=== PATIENT | female | born 1945 | race Caucasian/White ===

== ENCOUNTER → 2017-02-15 | Day surgery (SDC) | payer OTHER ==
[2017-02-07 13:59] VITALS: BMI 44.0
[~2017-02-15] VITALS: Ht 160 cm; Wt 112.3 kg
[~2017-02-15] MED LIST: CHOL1000 PO; LIDOCAINE HCL 2% 2 ML VIAL (20MG/ML) ONE; OMEP40CA41 PO; PROPOFOL IV EMULSION 10 MG/ML 20 ML VIAL IV ONE; SIME1CHW3 PO; SODIUM CHLORIDE 0.9% 500ML 500 ML IV ONE
[2017-02-15 09:29] VITALS: Ht 160 cm; Wt 112.3 kg
--- NOTE | 2017-02-15 10:13 | Endo History and Physical ---
History & Physical Date of Service: Feb 15, 2017. Chief Complaint: REFLUX Referring Physician: DR. VILLALPANDO History of Present Illness patient with reflux and regurgitation for upper endoscopy Past Medical History Arthritis Past Surgical History Hx Cardiac Surgery: No Hx Internal Defibrillator: No Hx Pacemaker: No Hx Abdominal Surgery: Yes (TUBAL LIGATION, NETTIE) Hx of Implantable Prosthesis: No Hx Post-Op Nausea and Vomiting: No Hx Cancer Surgery: No Hx Thoracic Surgery: No Hx Orthopedic: Yes (CERVICAL DISCECTOMY) Hx Urinary Tract Surgery: No Family History None Social History Smoking Status: Never Smoker Hx Substance Use: No Hx Alcohol Use: Yes (RARELY) Allergies Uncoded Allergies: ASA (Allergy, Severe, LIPS SWELL, 02/15/17) DECONGESTANTS (Allergy, Severe, LIPS SWELL, 02/15/17) Current Medications Reported Home Medications Medications Dose Route/Sig Max Daily Dose Days Date Category Gas Relief Extra Strength (Simethicone) 125 Mg Chw 1 Tab PO HS 02/07/17 Reported Vitamin D3 (Cholecalciferol) 1,000 Unit Tab 1 Tab PO QAM 90 02/07/17 Reported Prilosec (Omeprazole) 40 Mg Cap 40 Mg PO QAM 02/07/17 Reported Vital Signs Weight (Kilograms): 112.27 Height (Feet): 5 Height (Inches): 3 Date Time Temp Pulse Resp B/P (MAP) Pulse Ox O2 Delivery O2 Flow Rate FiO2 02/15/17 09:43 36.8 85 20 184/79 (114) 95 Room Air Physical Exam General Appearance: no apparent distress Respiratory/Chest: Auscultation: breath sounds normal Cardiovascular: Heart Auscultation: RRR Abdomen: Inspection & Palpation: soft Liver: non-tender Assessment and Plan stable for EGD
--- NOTE | 2017-02-15 10:31 | GI REPORT ---
Procedure Date: 02/15/2017 10:16 AM Procedure: Upper GI endoscopy Indications: Heartburn, Regurgitation Medicines: See the Anesthesia note for documentation of the administered medications Complications: No immediate complications. Estimated Blood Loss: Estimated blood loss was minimal. Procedure: Pre-Anesthesia Assessment: - Prior to the procedure, a History and Physical was performed, and patient medications, allergies and sensitivities were reviewed. The patient's tolerance of previous anesthesia was reviewed. - The risks and benefits of the procedure and the sedation options and risks were discussed with the patient. All questions were answered and informed consent was obtained. - Patient identification and proposed procedure were verified prior to the procedure by the physician and the nurse. The procedure was verified in the pre-procedure area. - Pre-procedure physical examination revealed no contraindications to sedation. - After reviewing the risks and benefits, the patient was deemed in satisfactory condition to undergo the procedure. After obtaining informed consent, the endoscope was passed under direct vision. Throughout the procedure, the patient's blood pressure, pulse, and oxygen saturations were monitored continuously. The scope was introduced through the mouth, and advanced to the third part of duodenum. The upper GI endoscopy was accomplished without difficulty. The patient tolerated the procedure well. Findings: The esophagus was normal. The entire examined stomach was normal. Biopsies were taken with a cold forceps for Helicobacter pylori nad pathology testing. Verification of patient identification for the specimen was done by the physician and nurse using the patient's name and medical record number. Estimated blood loss was minimal. The examined duodenum was normal. The cardia and gastric fundus were normal on retroflexion. Impression: - Normal esophagus. - No esophagitis. - Normal stomach. Biopsied. - Normal examined duodenum. Recommendation: - Await pathology results. - Discharge patient to home. Jose Cuenca M.D. Jose Cuenca MD 02/15/2017 10:30:49 AM This report has been signed electronically. Note Initiated On: 02/15/2017 10:16 AM I attest to the content of the Intraoperative Record and orders documented therein, exceptions below
--- NOTE | 2017-02-15 10:32 | Discharge Instructions ---
Endoscopy Patient Instructions Date / Procedure(s) Performed Feb 15, 2017. EGD Allergy Information Uncoded Allergies: ASA (Allergy, Severe, LIPS SWELL, 02/15/17) DECONGESTANTS (Allergy, Severe, LIPS SWELL, 02/15/17) Discharge Date / Findings Feb 15, 2017. normal EGD... biopsies taken Provider Instructions Activity Restrictions - No exercising or heavy lifting for 24 hours. - Do not drink alcohol the day of the procedure. - Do not drive a car or operate machinery until the day after the procedure. - Do not make any important decisions or sign important papers in 24 hours after the procedure. Following Day: - Return to full activity which may include returning to work/school. Diet Start your diet with liquids and light foods (jello, soup, juice, toast). Then eat your usual diet if not nauseated. Treatment For Common After Affects For mild abdominal pain, bloating, or excessive gas: - Rest - Eat lightly - Lie on right side Follow-Up Information Follow-up with DR. VILLALPANDO as scheduled Anesthesia Information What You Should Know You have had a procedure that required some medicine to reduce anxiety and discomfort. This treatment is called moderate sedation. After receiving the treatment, you may be sleepy, but you will be able to breathe on your own. The effects of the treatment may last for several hours. Follow these instructions along with Activity/Diet recommendations noted above: * Do NOT do anything where dizziness or clumsiness would be dangerous. * Rest quietly at home today, then you can be up and about tomorrow. * Have a responsible person stay with you the rest of today. * You may have had an I.V. today. If so, you may take the dressing off later today. Recommendations Call your doctor if: * Trouble breathing * Continuous vomiting for more than 24 hours * Temperature above 101 degrees * Severe abdominal pain or bloating * Pain not relieved by pain medicine ordered * There is increased drainage or redness from any incision * A large amount of rectal bleeding greater than 2-3 tablespoons. (If you had a polyp/s removed or have hemorrhoids, a small amount of blood - from the rectum is to be expected.) * You have any unanswered questions or concerns. IN THE EVENT OF A SERIOUS EMERGENCY, GO TO THE NEAREST EMERGENCY ROOM Your discharge instructions were prepared by provider Jose Cuenca. Patient Instructions Signature Page Cynthia Riverauser Patient (or Guardian) Signature/Date: I have read and understand the instructions given to me by my caregivers. Caregiver/RN/Doctor Signature/Date: The above-named patient and/or guardian has received patient instructions on this date. + Original Patient Signature Page (only) stays with chart. Please make copy for patient.
--- NOTE | 2017-02-15 10:43 | Anesthesiology Progress Note ---
Anesthesia Post Op Note Date & Time Feb 15, 2017 at 10:43 Vital Signs Pain Intensity: 2 Vital Signs Past 12 Hours Date Time Temp Pulse Resp B/P (MAP) Pulse Ox O2 Delivery O2 Flow Rate FiO2 02/15/17 10:30 78 20 138/79 (98) 96 Room Air 02/15/17 09:43 36.8 85 20 184/79 (114) 95 Room Air Notes Mental Status: alert / awake / arousable, participated in evaluation Pt Amnestic to Procedure: Yes Nausea / Vomiting: adequately controlled Pain: adequately controlled Airway Patency, RR, SpO2: stable & adequate BP & HR: stable & adequate Hydration State: stable & adequate Anesthetic Complications: no major complications apparent
[2017-02-15 11:00] VITALS: BP 151/99; PULSE 68; O2SAT 95
== END | disposition home or self-care (01) ==
LOC: C.GI 09:13
PROVIDERS: ATTEND Internal Medicine Gastroenterology
DX: K29.50 Unspecified chronic gastritis without bleeding (principal); K21.9 Gastro-esophageal reflux disease without esophagitis; Z79.899 Other long term (current) drug therapy

== ENCOUNTER 2020-01-08 09:09 | Inpatient (IN) ==
[2020-01-08] MEDS ORDERED: OPTIRAY 320 125ml IV PRN (09:18)
--- NOTE | 2020-01-08 09:34 | CT Scan Report ---
CT OF THE HEAD WITHOUT CONTRAST CLINICAL HISTORY: Stroke evaluation COMPARISON STUDY: No previous studies for comparison. CT DOSE: 1166.07 mGy.cm TECHNIQUE: Helical axial images of the head were obtained without IV contrast. Automated exposure con trol was utilized for the study. A dose lowering technique was utilized adhering to the principles o f ALARA. FINDINGS: No acute intracranial hemorrhage, midline shift or mass effect is present. The ventricular system is unremarkable. The basilar cisterns are patent. No extra-axial collections are present. Mild white matter hypodensity suggests small vessel disease. There are no findings to suggest acute dural sinus thrombosis or acute territorial infarct. No significant calvarial abnormalities are present. V isualized portions of the sinuses and mastoid air cells are clear. IMPRESSION: No acute intracranial findings. ACT 112: Negative or not required by law. Electronically signed by: Nash Deleon M.D. 01/08/2020 9:33 AM
--- NOTE | 2020-01-08 09:41 | XRay Report ---
XR chest 1V portable CLINICAL HISTORY: cva COMPARISON STUDY: Chest radiograph December 20, 2019. Chest CT November 09, 2010. FINDINGS: Moderate cardiomegaly is unchanged. Apparent left basilar opacity is probably artifactual. There is no evidence for pulmonary edema. Vasculature is prominent. This is unchanged. The appearance of the chest is unchanged. IMPRESSION: 1. No acute findings. 2. Apparent bibasilar opacities which probably reflect atelectasis or prominent epicardial fat pad. ACT 112: Negative or not required by law. Electronically signed by: Nahs Deleon M.D. 01/08/2020 9:39 AM
[2020-01-08 09:42] LABS: Basophils # (auto) 0.02 K/uL (0-0.2); Basophils % (auto) 0.3 %; Eosinophils # (auto) 0.07 K/uL (0-0.5); Hematocrit (blood only) 40.6 % (37-47); Hemoglobin 13.3 g/dL (12.0-16.0); Immature Granulocytes # (auto) 0.03 K/uL (0.00-0.02); Immature Granulocytes % (auto) 0.4 %; Lymphocytes # (auto) 1.52 K/uL (1.2-3.4); Lymphocytes % (auto) 21.2 %; Mean Corpuscular Hemoglobin 27.9 pg (25-34); Mean Corpuscular Hgb Conc 32.8 g/dL (32-36); Mean Corpuscular Volume 85.3 fL (80-100); Mean Platelet Volume 11.2 fL (7.4-10.4); Monocytes # (auto) 0.48 K/uL (0.11-0.59); Monocytes % (auto) 6.7 %; Neutrophils # (auto) 5.04 K/uL (1.4-6.5); Neutrophils % (auto) 70.4 %; Platelet Count 217 K/uL (130-400); RDW Coefficient of Variation 14.6 % (11.5-14.5); RDW Standard Deviation 45.4 fL (36.4-46.3); Red Blood Count 4.76 M/uL (4.2-5.4); White Blood Count 7.16 K/uL (4.8-10.8)
--- NOTE | 2020-01-08 09:46 | CT Scan Report ---
CT angio neck with con, CT angio head w con CLINICAL HISTORY: 74 years-old Female with Stroke evaluation. Acute strokelike symptoms COMPARISON STUDY: Head CT of same day TECHNIQUE: Following the IV administration of 120 mL of Optiray 320, CT angiogram of the head and nec k was performed from the aortic arch to the skull apex. Images are reviewed in the axial, sagittal, a nd coronal planes. 3-D MIPS images are created and assessed. IV contrast was administered without com plication. All measurements were calculated based on NASCET criteria. A dose lowering technique was utilized adhering to the principles of ALARA. FINDINGS: The opacified pulmonary artery is unremarkable. Mild mixed plaque of the thoracic aortic arch. Patenc y of the innominate artery and imaged subclavian arteries. Study is motion degraded. Medial course of the patent common carotid arteries. Carotid bulbs and internal carotid arteries are patent. Calcifie d plaque of the cavernous and supraclinoid segments without high-grade stenosis. There is multifocal mild and moderate luminal narrowing of the middle cerebral arteries. Mild multifocal luminal narrowin g of the patent anterior cerebral arteries. Dominant left vertebral artery. Diminutive right vertebra l artery, likely developmental. Patent basilar artery. Areas of high-grade stenosis or noted involvin g the bilateral posterior cerebral arteries (for example image 104 series 5 on the right and image 10 5 series 5 on the left) additional moderate areas of luminal narrowing are noted involving the bilate ral P2 segments. Cerebral venous sinuses are patent. No abnormal intracranial enhancement. No pneumothorax. Soft tissues are unremarkable. Multilevel degenerative changes of the cervical spine . IMPRESSION: 1. High-grade narrowing of the posterior cerebral arteries as above with multifocal mild and moderate luminal narrowing of the anterior and middle cerebral arteries. 2. No aneurysm, dissection or arterial occlusion identified. ACT 112: Negative or not required by law. The above report was generated using voice recognition software. It may contain grammatical, syntax o r spelling errors. Electronically signed by: Skip Coronado M.D. 01/08/2020 9:45 AM
[2020-01-08 09:55] LABS: INR 1.2 (0.9-1.1); Partial Thromboplastin Time 26.6 Seconds (21.0-31.0); Prothrombin Time 12.1 Seconds (9.0-12.0)
[2020-01-08 10:02] LABS: BUN Creatinine Ratio 12.3 (10-20); Calcium 8.4 mg/dl (8.5-10.1); Creatinine Clr Calc Pharmacy 64.4 ml/min; Est GFR (African American) 76.6; Est GFR (Non-African American) 66.1; Magnesium 1.8 mg/dl (1.8-2.4); Potassium 2.9 mmol/L (3.5-5.1)
--- NOTE | 2020-01-08 10:08 | Emergency Department Note ---
History of Present Illness General Chief Complaint: Stroke Alert Stated Complaint: Slurred Speech, Facial Droop Right Time Seen by Provider: 01/08/20 09:12 Source: patient Mode of arrival: EMS Limitations: no limitations History of Present Illness Provider Complaint: + facial droop and + slurred speech Last Known Well Time: 21:30 Maximum Pain Intensity: 0 HPI Narrative: The patient is a 74-year-old female who presents to the ED with a chief complaint of difficulty finding her words and slurring her speech this morning. The patient states that she awoke with the symptoms and called her daughter and was brought here by ambulance. The patient states that her symptoms seem much better now. She states that her mouth did not seem to move the way she wanted to. She awoke at 7 AM with the symptoms. She was noted to have a right-sided facial droop by EMS. She was also slurring her speech. 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 The patient has no other complaints. Home Medications Home Medications Medication Instructions Recorded Confirmed Type simethicone [Gas-X Extra Strength] 125 mg PO HS 10/05/18 01/08/20 History psyllium husk [Metamucil] 1 tbsp PO DAILY@1100 01/08/20 01/08/20 History Allergies Allergy/AdvReac Type Severity Reaction Status Date / Time aspirin Allergy Unknown LIPS SWELL Verified 01/08/20 10:03 silver AdvReac Mild Rash Verified 01/08/20 10:03 DECONGESTANTS Allergy Severe LIPS SWELL Uncoded 01/08/20 10:03 Past Med/Surg History Medical History Cardiac murmur MILD GERD (gastroesophageal reflux disease) History of colon polyps Macular degeneration 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 Osteoarthritis Surgical History H/O cervical spine surgery BONE CHIP REMOVAL History of anesthesia reaction SLOW TO WAKE UP History of bilateral tubal ligation History of cholecystectomy History of colonoscopy History of esophagogastroduodenoscopy (EGD) History of tooth extraction Family History Father Family history of diabetes mellitus Social History Preferred Language: Albanian Communication Ability: Effective Clutch Rebuilder Required: No Beliefs That Will Affect Care: None Current Living Situation: Spouse Feels Safe at Home: Yes Smoking Status: Never smoker Second Hand Exposure: No ; Hx Alcohol Use: No Hx Substance Use: No Review of Systems A total of 10 systems reviewed and were otherwise negative Physical Exam Vital Signs: Vital Signs - 24 hr 01/08/20 09:10 01/08/20 09:29 01/08/20 09:53 Temperature 36.4 C L Temperature Source Oral Pulse Rate 87 84 81 Pulse Rate [Apical ] Pulse Rate from Sp O2 Sensor 80 Respiratory Rate 20 24 20 Blood Pressure 170/148 H 170/148 H 215/108 H Blood Pressure [Ri ght Arm] Blood Pressure Daisha n 155 151 126 Blood Pressure Daisha n [Right Arm] Pulse Oximetry 94 97 Oxygen Delivery Me thod Room Air Sepsis Recent Feve r Within 48 Hours No Sepsis New/Unexpla ined Change in Men savanna Status No Sepsis Action Take n by Nursing No Action Required 01/08/20 10:22 Temperature Temperature Source Pulse Rate Pulse Rate [Apical ] 64 Pulse Rate from Sp O2 Sensor Respiratory Rate 20 Blood Pressure Blood Pressure [Ri ght Arm] 227/96 H Blood Pressure Daisha n Blood Pressure Daisha n [Right Arm] 139 Pulse Oximetry 97 Oxygen Delivery Me thod Room Air Sepsis Recent Feve r Within 48 Hours Sepsis New/Unexpla ined Change in Men savanna Status Sepsis Action Take n by Nursing Physical Exam: CONSTITUTIONAL/VITAL SIGNS: Reviewed / noted above. GENERAL: Non-toxic in appearance. INTEGUMENTARY: Warm, dry, and [place]. HEAD: Normocephalic. EYES: without scleral icterus or trauma. ENT/OROPHARYNX: clear and moist. LYMPHADENOPATHY/NECK: Is supple without lymphadenopathy or meningismus. RESPIRATORY: Lungs clear and equal. CARDIOVASCULAR: Regular rate and rhythm. GI/ABDOMEN: Soft and nontender. No organomegaly or pulsatile mass. No rebound or guarding. Normal bowel sounds. EXTREMITIES: Warm and well perfused. BACK: No CVA tenderness. NEUROLOGICAL: Intact without focal deficits. PSYCHIATRIC: normal affect. MUSCULOSKELETAL: Normally developed with good muscle tone. TRIAGE NURSING DOCUMENTATION REVIEWED. Course Administered Medications Ioversol (Optiray 320 125ml) 120 ml IV ONCE PRN PRN Reason: Interaction Checking Stop: 01/12/20 09:17 Last Admin: 01/08/20 09:18 Dose: 120 ml Documented by: [id number] Medical Decision Making Differential Diagnosis Differential includes acute coronary syndrome, myocardial infarction, CVA, TIA, anemia, infection, pneumonia, UTI, pyelonephritis, poor nutrition, dehydration, electrolyte disturbance,hypoglycemia. Medical Records Attestation: I reviewed the patient's medical records. Home Medications Current Medication List: was personally reviewed by me Laboratory Data Attestation: I reviewed the patient's lab results. Result diagrams: 01/08/20 09:31 01/08/20 09:31 Lab Results 01/08/20 01/08/20 01/08/20 Range/Units 09:31 09:31 09:31 WBC 7.16 (4.8-10.8) K/uL RBC 4.76 (4.2-5.4) M/uL Hgb 13.3 (12.0-16.0) g/dL Hct 40.6 (37-47) % MCV 85.3 (80-100) fL MCH 27.9 (25-34) pg MCHC 32.8 (32-36) g/dL RDW Std Deviation 45.4 (36.4-46.3) fL RDW Coeff of Rishabh 14.6 H (11.5-14.5) % Plt Count 217 (130-400) K/uL MPV 11.2 H (7.4-10.4) fL Immature Gran % (Auto) 0.4 % Neut % (Auto) 70.4 % Lymph % (Auto) 21.2 % Mccracken % (Auto) 6.7 % Eos % (Auto) 1.0 % Baso % (Auto) 0.3 % Immature Gran # (Auto) 0.03 H (0.00-0.02) K/uL Neut # (Auto) 5.04 (1.4-6.5) K/uL Lymph # (Auto) 1.52 (1.2-3.4) K/uL Mccracken # (Auto) 0.48 (0.11-0.59) K/uL Eos # (Auto) 0.07 (0-0.5) K/uL Baso # (Auto) 0.02 (0-0.2) K/uL PT 12.1 H (9.0-12.0) Seconds INR 1.2 H (0.9-1.1) APTT 26.6 (21.0-31.0) Seconds PTT Ratio 1.0 Sodium 139 (136-145) mmol/L Potassium 2.9 L (3.5-5.1) mmol/L Chloride 107 (98-107) mmol/L Carbon Dioxide 24 (21-32) mmol/L Anion Gap 8.0 (3-11) BUN 11 (7-18) mg/dl Creatinine 0.87 (0.6-1.2) mg/dl Est Cr Clr Drug Dosing 64.4 ml/min Est GFR ( Amer) 76.6 Est GFR (Non-Af Amer) 66.1 BUN/Creatinine Ratio 12.3 (10-20) Glucose 117 H (70-99) mg/dl Calcium 8.4 L (8.5-10.1) mg/dl Magnesium 1.8 (1.8-2.4) mg/dl Total Bilirubin 0.4 (0.2-1) mg/dl AST 10 L (15-37) U/L ALT 20 (12-78) U/L Alkaline Phosphatase 97 (45-117) U/L Troponin I 0.114 H* (0-0.045) ng/ml Total Protein 6.7 (6.4-8.2) gm/dl Albumin 3.0 L (3.4-5.0) gm/dl Globulin 3.7 (2.5-4.0) gm/dl Albumin/Globulin Ratio 0.8 L (0.9-2) Imaging Data Radiologist's Impression: CT angiogram of the head:IMPRESSION: 1. High-grade narrowing of the posterior cerebral arteries as above with multifocal mild and moderate luminal narrowing of the anterior and middle cerebral arteries. 2. No aneurysm, dissection or arterial occlusion identified. Noncontrast CT of the head:FINDINGS: No acute intracranial hemorrhage, midline shift or mass effect is present. The ventricular system is unremarkable. The basilar cisterns are patent. No extra-axial collections are present. Mild white matter hypodensity suggests small vessel disease. There are no findings to suggest acute dural sinus thrombosis or acute territorial infarct. No significant calvarial abnormalities are present. Visualized portions of the sin uses and mastoid air cells are clear. IMPRESSION: No acute intracranial findings. Chest x-ray:IMPRESSION: 1. No acute findings. 2. Apparent bibasilar opacities which probably reflect atelectasis or prominent epicardial fat pad. ECG Data Attestation: I personally reviewed and interpreted this ECG as follows: Indication: weakness Rate (beats per minute): 85 Rhythm: normal sinus Findings: no PVC, no ST elevation and no prolonged QT MDM Narrative The patient is a 74-year-old female who presents to the ED with a chief complain t of difficulty finding her words and slurring her speech this morning. The patient states that she awoke with the symptoms and called her daughter and was brought here by ambulance. The patient states that her symptoms seem much better now. She states that her mouth did not seem to move the way she wanted to. She awoke at 7 AM with the symptoms. She was noted to have a right-sided facial droop by EMS. She was also slurring her speech. 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 The patient has no other complaints. The patient's physical exam when I saw her was unremarkable. She was speaking clearly and without hesitation. She did not have any focal neurologic deficits on my exam. I did speak with the stroke neurologist with regards to the patient's CT angiogram. She did not feel any intervention was needed and recommended aspirin and Plavix loading. The patient is allergic to aspirin and states that her lips swell. She was loaded with Plavix. She will be seen by the hospitalist for further inpatient evaluation and care. Of note, her blood pressure was quite elevated. She was ordered hydralazine for this. The patient also had a slightly elevated troponin without significant EKG changes. This could be related to her hypertension. Impression & Plan Brain TIA, Elevated troponin, Accelerated hypertension Critical Care Time Critical Care Time: Yes Total Critical Care Time: 35 I have personally spent 35 minutes of critical care time in the direct management of this patient. This includes bedside care, interpretation of diagnostic studies, and testing, discussion with consultants, patient, and family members, and other required patient management activities. This 35 mi nutes is in excess of all separately billable procedures. Discharge Plan Visit Data Chief Complaint: Stroke Alert Stated Complaint: Slurred Speech, Facial Droop Right ED Provider: Kraig Lopez Discharge Problem: Brain TIA, Elevated troponin, Accelerated hypertension Patient Disposition: Being Evaluated by Hospitalist Condition: Good Forms Stand Alone Forms: [facility], Virtual Emergency Department, Important Visit Information Prescriptions Prescriptions: No Action Metamucil 3.4 gram/5.4 gram Powder 1 tbsp PO DAILY@1100 RF: 0 simethicone [Gas-X Extra Strength] 125 mg Capsule 125 mg PO HS RF: 0 Referrals Referrals: Frank Pittman MD [Primary Care Provider] -
[2020-01-08 10:14] LABS: Albumin Globulin Ratio 0.8 (0.9-2); Bilirubin,Total 0.4 mg/dl (0.2-1); Globulin 3.7 gm/dl (2.5-4.0); Total Protein 6.7 gm/dl (6.4-8.2); Troponin I 0.114 ng/ml (0-0.045)
[2020-01-08] MEDS ORDERED: CLOPIDOGREL BISULFATE 300 MG TAB PO STA (10:31)
[2020-01-08] MEDS ORDERED: HydrALAZINE HCL 20 MG/ML VIAL IV STA (10:31)
[2020-01-08] MEDS ORDERED: LABETALOL HCL IV 5 MG/ML 20ML IV STA (10:42)
[2020-01-08] MEDS ORDERED: ACETAMINOPHEN 500 MG TAB PO STA (11:20)
[2020-01-08] MEDS ORDERED: MoRPHine SULFATE 2 MG/ML CARP IV STA (11:20)
--- NOTE | 2020-01-08 11:43 | History & Physical Report ---
Date of Service January 08, 2020 Assessment & Plan (1) Stroke-like symptoms: This is a 74 yo F with a PMH of CKD III, GERD and IBS who presents with stroke like symptoms starting this morning. -Right sided weakness noted last night but resolved. Woke up today with dysarthria, dysphagia and R sided facial droop that improved but then worsened prior to admission -No personal or family CVA history. No known underlying cardiac or vascular disease -Head CT negative for intracranial abnormality and CTA of head/neck with high- grade narrowing of SENIOR FRONT END ENGINEER but no evidence of aneurysm, dissection or occlusion -MRI brain w/wo, echo w/ bubble study ordered -[facility] neurology recommended dual antiplatelet therapy but patient with aspirin allergy. Given plavix through NG tube -Neuro checks, PT, OT, speech therapy evaluations -Discussed plan with neurology, who will evaluate patient. Monitor in ICU for now due to evolving symptoms (2) Hypertensive emergency: (3) Elevated troponin: BP up to 227/96 during arrival with associated troponin elevation of 0.114 -Initially withheld antihypertensives to allow for permissive hypertension for cerebral perfusion but given Labetalol x 1 due to developing chest pain and headache -BP now 178/92. EKG without acute ST changes. Will allow for permissive hypertension up to 220/110 per guidelines -Trend troponin DVT Ppx: SCDs Code status: FULL PCP: [facility] Dispo: Admitted to ICU. Discharge planning ordered. Patient seen in collaboration with Dr. Rose. Please see addendum. History of Present Illness Chief Complaint: stroke like symptoms Primary Care Provider: Frank Pittman MD This is a 74 yo F with a PMH of CKD III, GERD and IBS who presents with stroke like symptoms starting this morning. Patient was watching the news last evening and noticed right-sided weakness when walking back to bedroom, resulting in her falling forward. Denies head trauma or LOC. Was able to get up and ambulate to bed. Woke up at 0700 this morning with slurred speech and right-sided facial droop and came to ED for further evaluation. In the ED, BP is elevated, ranging from 180-220/96-110. Head CT negative for intracranial abnormality and CTA of head/neck with high-grade narrowing of SENIOR FRONT END ENGINEER but no evidence of aneurysm, dissection or occlusion. ED provider spoke with [facility] neurology during stroke alert, but was out of tpa window and no other intervention was possible at this time. Dual antiplatelet therapy was recommended, however patient has allergic reaction of lip swelling to aspirin. Dyarthria and facial droop improved initially on presentation but then worsened again by hospitalist time of evaluation. Also began to experienced R sided chest pain that felt like gas pain as well as frontal headache. Denies fever, chills, lightheadedness, visual changes, cough, chest pain, palpitations, shortness of breath, abdominal pain, nausea, vomiting, dysuria, constipation or diarrhea. Failed dysphagia screen so Plavix was given though NG tube. Brain MRI w/wo and echo with bubble study ordered. Discussed with Dr. Patino of neurology, who will evaluate patient. Will be monitored in ICU Allergies Allergy/AdvReac Type Severity Reaction Status Date / Time aspirin Allergy Unknown LIPS SWELL Verified 01/08/20 10:03 silver AdvReac Mild Rash Verified 01/08/20 10:03 DECONGESTANTS Allergy Severe LIPS SWELL Uncoded 01/08/20 10:03 Home Medications Home Medications Medication Instructions Recorded Confirmed Type simethicone [Gas-X Extra Strength] 125 mg PO HS 10/05/18 01/08/20 History psyllium husk [Metamucil] 1 tbsp PO DAILY@1100 01/08/20 01/08/20 History Past Med/Surg History Medical History Cardiac murmur MILD GERD (gastroesophageal reflux disease) History of colon polyps Macular degeneration 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 Osteoarthritis Surgical History H/O cervical spine surgery BONE CHIP REMOVAL History of anesthesia reaction SLOW TO WAKE UP History of bilateral tubal ligation History of cholecystectomy History of colonoscopy History of esophagogastroduodenoscopy (EGD) History of tooth extraction Family History Father Family history of diabetes mellitus Social History Preferred Language: Northern Irish Communication Ability: Effective Systems Support Specialist Required: No Beliefs That Will Affect Care: None Current Living Situation: Spouse Feels Safe at Home: Yes Smoking Status: Never smoker Second Hand Exposure: No ; Hx Alcohol Use: No Hx Substance Use: No Review of Systems Review of Systems: At least ten systems reviewed and negative except as noted in the HPI. Physical Exam Physical Exam: General Appearance: WD/WN, vitals as above, sitting up in bed, flushed, appears anxious, dysarthric Head: normocephalic, atraumatic Eyes: normal inspection, PERRL, conjunctivae normal, anicteric sclerae ENT: external ear and nose normal, oropharynx normal Neck: trachea midline, no thyromegaly, normal visual inspection Respiratory: normal respiratory effort, lungs clear to auscultation, no wheeze, rales, rhonchi. Normal insp/exp effort, no accessory muscle use Cardiovascular: regular rate, rhythm, no murmur appreciated, normal peripheral pulses Chest: normal inspection of chest Abdomen/GI: normal bowel sounds, soft, nontender, no hepatosplenomegaly Extremities/Musculoskeletal: no cyanosis or clubbing, extremities motor strength 5/5 Neurologic: PERRL, EOMI, accommodation nl,+ R sided facial droop, + dysarthria, difficulty with R sided [id number]. CN's II-XI intact bilaterally , AROM and strength 5/5 in all extremities Psychiatric: A+Ox3, anxious Skin: no rashes, normal color, warm/dry Results & Data Results & Data ([facility]) Vital Signs (Past 12 Hours) Vital Signs Temp Pulse Pulse Resp BP BP Pulse Ox 01/08/20 11:11 69 25 H 182/106 H 95 01/08/20 11:00 65 24 175/96 H 95 01/08/20 10:31 69 17 173/98 H 96 01/08/20 10:22 64 20 227/96 H 97 01/08/20 10:01 75 21 227/96 H 96 01/08/20 09:53 81 20 215/108 H 97 01/08/20 09:29 84 24 170/148 H 01/08/20 09:10 36.4 C L 87 20 170/148 H 94 Laboratory Results Short CBC 01/08/20 Range/Units 09:31 WBC 7.16 (4.8-10.8) K/uL Hgb 13.3 (12.0-16.0) g/dL Hct 40.6 (37-47) % Plt Count 217 (130-400) K/uL [facility] 01/08/20 09:31 Sodium 139 Potassium 2.9 L Chloride 107 Carbon Dioxide 24 BUN 11 Creatinine 0.87 Glucose 117 H Calcium 8.4 L Cardiac Enzymes 01/08/20 Range/Units 09:31 Troponin I 0.114 H* (0-0.045) ng/ml Liver Function 01/08/20 Range/Units 09:31 Total Bilirubin 0.4 (0.2-1) mg/dl AST 10 L (15-37) U/L ALT 20 (12-78) U/L Alkaline Phosphatase 97 (45-117) U/L Albumin 3.0 L (3.4-5.0) gm/dl Diagnostic Findings CT head: IMPRESSION: No acute intracranial findings. CTA head: IMPRESSION: 1. High-grade narrowing of the posterior cerebral arteries as above with multifocal mild and moderate luminal narrowing of the anterior and middle cerebral arteries. 2. No aneurysm, dissection or arterial occlusion identified. CTA neck: IMPRESSION: 1. High-grade narrowing of the posterior cerebral arteries as above with multifocal mild and moderate luminal narrowing of the anterior and middle cerebr al arteries. 2. No aneurysm, dissection or arterial occlusion identified. CXR:IMPRESSION: 1. No acute findings. 2. Apparent bibasilar opacities which probably reflect atelectasis or prominent epicardial fat pad. KUB: IMPRESSION: The nasogastric tube is positioned with its tip in the stomach ECG Rhythm: normal sinus Findings: + nonspecific-ST abn Code Status & VTE Plan VTE Prophylaxis Plan VTE Prophylaxis will be ordered: Yes Supervising Physician Co-Signing Physician Notes Attending Addendum: care coordinated with ANDREW Smith please refer to her notes for full details, I agree with her notes patient seen and examined, records reviewed by myself as well on exam, patient seen sitting up in bed, not in distress Patient reports difficulty with her speech again, but denies any focal weakness or numbness, headache, dizziness, chest pain, shortness of breath, nausea Blood pressure noted to be 202/92 Labetalol 10 mg IV ordered On recheck blood pressure was 163/97, with significant improvement of her speech no other symptoms VS noted and reviewed oriented x 3, not in distress, speaks in sentences with no effort nor accessory muscle use normal rate, regular rhythm, no murmurs clear breath sounds bilaterally non distended, soft, nontender no bipedal edema, erythema, warmth Oriented x3, cranial nerves II through XII grossly intact except for mild right facial droop and dysarthria-significantly improved after evaluation as noted above, Motor strength 5/5 all extremities, sensation present all extremities WBC 7.16 Hg 13.3 Crea 0.87 Troponin 0 0.114 EKG no signs of acute ischemia or infarct CT head: No acute intracranial findings CT angiogram head and neck: 1. High-grade narrowing of the posterior cerebral arteries as above with multifocal mild and moderate luminal narrowing of the anterior and middle cerebral arteries. 2. No aneurysm, dissection or arterial occlusion identified. ASSESSMENT AND PLAN 74-year-old female with history of CKD stage III, GERD, IBS, presenting with strokelike symptoms which started last night. Strokelike symptoms-episode of right sided weakness-resolved, recurrent episodes of dysarthria and right facial droop Likely secondary to acute CVA versus TIA in the setting of high-grade PCP stenosis, mild to moderate anterior and middle cerebral artery stenosis --Tele-stroke conference performed, acute surgical intervention not recommended at this point, recommend loading of aspirin and Plavix However patient is allergic to aspirin-hives Patient also did not pass bedside swallow eval, NG tube placed for administration of Plavix and other medications --Stroke protocol ordered including MRI of the brain, echocardiogram with bubble study --Discussed with Dr. Lyn Patient will be admitted to the ICU for close monitoring Uncontrolled hypertension --In the setting of acute CVA --Patient at one point reached blood pressure of 202/97 Labetalol 10 mg IV given with improvement to 163/97 --We will discuss with neurology service regarding blood pressure goals in the setting of acute CVA other diagnoses and plan of care as per ANDREW Smith's notes Kelechi Rose MD
[2020-01-08] MEDS ORDERED: ACETAMINOPHEN 1000 MG/100 ML IV IV STA (11:44)
[2020-01-08] MEDS ORDERED: CLOPIDOGREL BISULFATE 300 MG TAB PEG STA (12:03)
[2020-01-08] MEDS ORDERED: POTASSIUM CHLORIDE 20 MEQ/15 ML UDC NG STA (12:05)
[2020-01-08] MEDS ORDERED: ICU PROTOCOL FOR HYPERGLYCEMIA PRN (12:19)
--- NOTE | 2020-01-08 13:08 | XRay Report ---
XR KUB/Abdomen 1 view CLINICAL HISTORY: confirm placement of NG tube COMPARISON STUDY: No previous studies for comparison. FINDINGS: A single view centered on hemidiaphragms is provided for interpretation. There is a nasogas tric tube with its tip projected over the stomach. IMPRESSION: The nasogastric tube is positioned with its tip in the stomach ACT 112: Negative or not required by law. Electronically signed by: Jerry Magallon M.D. 01/08/2020 1:07 PM
[2020-01-08] MEDS: POTASSIUM CHLORIDE / WTR 10 MEQ/100 ML PLCT IV SCH ×3 (14:20→22:50)
--- NOTE | 2020-01-08 16:06 | Critical Care Consultation ---
Date of Consultation January 08, 2020 Assessment & Plan (1) Status post admission to intensive care unit: 74-year-old female with past medical history of hypertension, GERD, obesity and IBS presenting with strokelike symptoms and hypertensive emergency. Neurologic: Continue stroke pathway. Loaded with Plavix. Continue daily Plavix. Neurology consult pending. MRI of the brain pending. Echo pending. Will need PT/OT. Will need speech evaluation tomorrow. Pulmonary: No issues currently. Will likely need an evaluation for obstructive sleep apnea as an outpatient. Cardiovascular: Permissive hypertension over the next 24 hours. Intervention with systolic blood pressure greater than 220 or diastolic blood pressure greater than 120. Trend troponins. Likely demand ischemia. Echo pending. Gastrointestinal: N.p.o. for today. Speech evaluation tomorrow. Renal: Hypokalemia. Patient received potassium. We will follow-up with a repeat BMP. Infectious disease: No issues. Hematologic: No issues. Endocrine: ICU hyperglycemic protocol. Glucose within normal limits currently. F/E/N: N.p.o. for now. Lines and tubes: Peripheral IVs in place. VTE prophylaxis: SCDs. CODE STATUS: Full I have personally spent 31 minutes of critical care time in the direct management of this patient. This is a life/limb threatening event. This includes time spent evaluating patient, direct bedside care, chart review, placing orders, interpretation of diagnostic studies, discussion with consultants, patient, and family members, as well as other required patient management activities. This time is exclusive of all separately billable procedures, and teaching time and separate from and in addition to any other critical care service time. Thank you for allowing us to participate in the care of this patient. (2) Hypertensive emergency: (3) Stroke-like symptoms: (4) Elevated troponin: History of Present Illness Reason for Consultation: Hypertensive emergency Requesting Physician: Kelechi Rose MD Attending Physician: Kelechi Rose MD History of Present Illness 74-year-old female with a history of gastroesophageal reflux disease, hypertension, CKD 3 and IBS who presented to the hospital due to strokelike symptoms. She notes that symptoms began at 1130 last night when she had weakness in her right lower extremity and had some trouble walking. This improved somewhat and she went to bed. Around 7 AM this morning she took a shower and then found that her speech was slurred and had some facial droop on the right. She also had some trouble swallowing. She went to the emergency department and was found to have elevated blood pressures with systolics in the 220s. She denies any chest pain, fevers, chills, night sweats, nausea or vomiting. She does have some "gas". A stroke alert was called and the ED spoke with [place] neurology during the stroke alert. She was out of the window for TPA. She underwent a CT of her head which was negative for any acute intracranial pathology. A CTA of her head and neck demonstrated high-grade narrowing in the MEDICAL OFFICE TECHNICIAN but no other significant findings. She was not deemed to be a candidate for thrombectomy or mechanical intervention at this time. She was loaded with Plavix. She was not able to take aspirin due to prior reactions involving lip swelling and tongue swelling. She notes that she was in the hospital 2 weeks ago and indeed she was discharged on 12/20/2019 from the ER and there were concerning findings for glaucoma. She went to see an call center consultant as an outpatient. She apparently failed her dysphagia screen and an NG tube was placed and she was given Plavix. Neurology was consulted. Allergies Allergy/AdvReac Type Severity Reaction Status Date / Time aspirin Allergy Unknown LIPS SWELL Verified 01/08/20 10:03 silver AdvReac Mild Rash Verified 01/08/20 10:03 DECONGESTANTS Allergy Severe LIPS SWELL Uncoded 01/08/20 10:03 Home Medications Home Medications Medication Instructions Recorded Confirmed Type simethicone [Gas-X Extra Strength] 125 mg PO HS 10/05/18 01/08/20 History psyllium husk [Metamucil] 1 tbsp PO DAILY@1100 01/08/20 01/08/20 History Patient History Medical History Cardiac murmur MILD GERD (gastroesophageal reflux disease) History of colon polyps Macular degeneration 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 Osteoarthritis Surgical History H/O cervical spine surgery BONE CHIP REMOVAL History of anesthesia reaction SLOW TO WAKE UP History of bilateral tubal ligation History of cholecystectomy History of colonoscopy History of esophagogastroduodenoscopy (EGD) History of tooth extraction Family History Father Family history of diabetes mellitus Social History Preferred Language: Hebrew Communication Ability: Effective Metals Analyst Required: No Beliefs That Will Affect Care: None Current Living Situation: Spouse Other Information That Helps Us Care for You: No Feels Safe at Home: Yes Safety Concerns: Feels Safe At This Time Smoking Status: Never smoker Second Hand Exposure: No ; Hx Alcohol Use: No Hx Substance Use: No Review of Systems Review of Systems: All systems reviewed & are unremarkable except as noted in HPI & below Physical Exam Constitutional: WD/WN, vitals as above Eyes: PERRL, conjunctivae normal, anicteric sclerae ENMT: external ear and nose normal, oropharynx normal Neck: trachea midline, no thyromegaly Respiratory: normal respiratory effort, lungs clear to auscultation Cardiovascular: RRR, no murmur, no edema Gastrointestinal (Abdomen): normal bowel sounds, soft, nontender, no hepatospl enomegaly Musculoskeletal: no cyanosis or clubbing, extremities motor strength 5/5 Skin: no rashes, warm and dry Neurologic: PERRL, EOMI, accommodation nl, no face palsy, no dysarthria Cranial Nerves: normal facial strength Psychiatric: A+Ox3, euthymic affect Results & Data Results & Data ([facility]) Vital Signs (Past 12 Hours) Vital Signs Temp Pulse Pulse Resp BP BP Pulse Ox 01/08/20 15:01 70 20 160/91 H 01/08/20 14:31 74 21 176/87 H 96 01/08/20 14:01 59 L 19 165/84 H 95 01/08/20 13:31 65 19 186/125 H 95 01/08/20 13:00 62 17 95 01/08/20 12:31 74 24 178/92 H 95 01/08/20 12:01 66 18 163/97 H 94 01/08/20 11:44 75 25 H 201/91 H 97 01/08/20 11:11 69 25 H 182/106 H 95 01/08/20 11:00 65 24 175/96 H 95 01/08/20 10:31 69 17 173/98 H 96 01/08/20 10:22 64 20 227/96 H 97 01/08/20 10:01 75 21 227/96 H 96 01/08/20 09:53 81 20 215/108 H 97 01/08/20 09:29 84 24 170/148 H 01/08/20 09:10 97.5 F L 87 20 170/148 H 94 I personally reviewed her labs, chest imaging and previous notes. Coding Level of Care Code Critical Care 1st 30-74 mins Diagnoses Status post admission to intensive care unit Hypertensive emergency I16.1 Stroke-like symptoms R29.90 Elevated troponin R79.89 Time Spent (min) 31
[2020-01-08] MEDS ORDERED: PHARMACIST DISCHARGE MED REC CONSULT PRN (16:13)
--- NOTE | 2020-01-08 16:59 | Electrocardiogram Report ---
Test Reason : Blood Pressure : / mmHG Vent. Rate : 085 BPM Atrial Rate : 085 BPM P-R Int : 158 ms QRS Dur : 090 ms QT Int : 388 ms P-R-T Axes : 065 053 077 degrees QTc Int : 461 ms Normal sinus rhythm Abnormal ECG When compared with ECG of 20-DEC-2019 09:28, ST now depressed in Anterolateral leads T wave inversion now evident in Anterolateral leads Confirmed by Pancho Braden ([id number]) on 01/08/2020 4:58:56 PM Referred By: REFERRED SELF Confirmed By:Pancho Braden
[2020-01-08 17:19] LABS: BUN Creatinine Ratio 10.6 (10-20); Calcium 8.5 mg/dl (8.5-10.1); Creatinine Clr Calc Pharmacy 65.1 ml/min; Est GFR (African American) 75.5; Est GFR (Non-African American) 65.2; Potassium 3.2 mmol/L (3.5-5.1)
--- NOTE | 2020-01-08 17:19 | Electrocardiogram Report ---
Test Reason : Blood Pressure : / mmHG Vent. Rate : 065 BPM Atrial Rate : 065 BPM P-R Int : 162 ms QRS Dur : 088 ms QT Int : 402 ms P-R-T Axes : 051 035 026 degrees QTc Int : 418 ms Normal sinus rhythm Nonspecific T wave abnormality Abnormal ECG When compared with ECG of 08-JAN-2020 09:32, ST less depressed in Anterolateral leads Confirmed by Pancho Braden ([id number]) on 01/08/2020 5:18:38 PM Referred By: REFERRED SELF Confirmed By:Pancho Braden
[2020-01-08] MEDS: ATORVASTATIN 40 MG TAB PO SCH (17:24)
[2020-01-08 17:26] LABS: Troponin I 0.084 ng/ml (0-0.045)
--- NOTE | 2020-01-08 19:58 | Consultation Report ---
DATE: 01/08/2020 REASON FOR CONSULTATION: Possible stroke. HISTORY OF PRESENT ILLNESS: The patient is a 74-year-old right-handed female with a history of chronic kidney disease, GERD and irritable bowel, presenting with stroke-like symptoms. The evening prior to admission, the patient attempted to stand up and felt numb in the right leg and weak in the left leg. This resulted in a fall. She was able to get up and go to bed. Upon awakening at 4:00 a.m., she still had mild residual weakness. She again woke up at 8:00 a.m. noticed difficulty with slurred speech and word finding. A right-sided facial droop was noted. She did not notice any change in vision, diplopia, numbness other than aforementioned vertigo, nausea, vomiting, other unilateral weakness or numbness. She did not have a headache. She has been well recently, although was seen in the Emergency Room about a month ago for a migrainous headache which she describes as sudden in onset, a pressured pain on the right but with nausea and vomiting. There were no other neurologic symptoms. She has had no recent head or neck trauma, chiropractic manipulation of the neck. She has not had any chest pain, palpitation, shortness of breath, fevers, chills, sweats, anosmia or ageusia. She has not had any recent medical or dental procedures. While at the hospital, she was noted to have chest pain and a frontal headache. On this basis because she was markedly hypertensive, she was given a low dose of labetalol. She failed the dysphagia screen in the Emergency Room so Plavix was given via NG tube. CT of the head, which I reviewed, was unremarkable. CTA of the neck showed mild to moderate luminal narrowing in the middle cerebral arteries. Dominant left vertebral artery, diminutive right, patent basilar, areas of high-grade stenosis noted in the bilateral cerebral, posterior cerebral arteries and the bilateral P2 segment. Her EKG was sinus rhythm. LABORATORY DATA: Notable for white count of 7, H&H 13.3/40, platelet count 217. Potassium initially 2.9, glucose 117, calcium 8.4, AST 10. Troponin positive. Albumin 3. PT 12, INR 1.2, PTT 26.6. PAST MEDICAL HISTORY: As above. Additionally, the patient indicates to me that she soon after having her headache a month ago, she had laser surgery to her eyes. She has a history of a murmur, reflux, polyps, macular degeneration, osteoarthritis. SURGICAL HISTORY: Cervical spine surgery, bilateral tubal ligation, cholecystectomy, colonoscopy, tooth extraction. FAMILY HISTORY: Heart disease. SOCIAL HISTORY: Nonsmoker, nondrinker. She lives with who I see for Parkinson's disease. PHYSICAL EXAMINATION: VITAL SIGNS: BP max was 215/108. At 1800, blood pressure was 182/109, temperature 36.8, pulse 71 and regular. GENERAL: The patient is awake and alert, oriented x3, no right/left confusion. Repetition, naming and 3-step commands are normal. NECK: There are no carotid bruits. HEART: No heart murmurs. Heart is regular rate and rhythm. ABDOMEN: Soft and nontender. EXTREMITIES: There is no calf swelling or tenderness. Feet are warm and dry. NEUROLOGIC: Pupils are postsurgical. Optic nerves are grossly normal, normal vargas, motility without nystagmus. Normal facial sensation. There may be a marginal flattening of the right nasolabial fold. Speech is mildly hesitant and mildly dysarthric. Tongue is midline. Gag may be reduced on the left. Motor 5/5, no drift. Normal rapid alternating movements. There is a little bit of a resting tremor in the left hand, but the tremor is more significant with intention bilaterally. [id number] is normal. Reflexes symmetric. Toes are downgoing. Sensation is intact to light touch and temperature bilaterally. Gait was not tested. IMPRESSION: Stroke, localization unclear based on the reported difficulty with language which suggest anterior circulation and bilateral lower extremity symptoms which suggest posterior circulation. Her symptoms do not appear to be consistent with the noted ENGINEERING CLERK stenosis. PLAN: MRI of the brain. Suspect this a small vessel. Cardiac monitoring, echo with bubble study. Zio patch as an outpatient if the inpatient telemetry as unremarkable, check lipid profile. Goal LDL 70 or less. Permissive hypertension in first 24-48 hours, blood pressure 180/105, if asymptomatic is reasonable, then gradual reduction of blood pressure. PT, OT and speech. We will follow with you.
[2020-01-08] MEDS ORDERED: GADOBUTROL 65ML VIAL IV PRN (21:52)
[2020-01-08 22:42] LABS: Potassium 2.9 mmol/L (3.5-5.1)
[2020-01-08] MEDS ORDERED: POTASSIUM CHLORIDE 20 MEQ TABCR PO STA (22:44)
[2020-01-08 23:14] LABS: Troponin I 0.084 ng/ml (0-0.045)
[2020-01-09 04:20] LABS: Basophils # (auto) 0.02 K/uL (0-0.2); Basophils % (auto) 0.2 %; Eosinophils # (auto) 0.12 K/uL (0-0.5); Eosinophils % (auto) 1.5 %; Hematocrit (blood only) 41.1 % (37-47); Hemoglobin 13.3 g/dL (12.0-16.0); Immature Granulocytes # (auto) 0.01 K/uL (0.00-0.02); Immature Granulocytes % (auto) 0.1 %; Lymphocytes # (auto) 2.24 K/uL (1.2-3.4); Lymphocytes % (auto) 27.2 %; Mean Corpuscular Hemoglobin 27.6 pg (25-34); Mean Corpuscular Hgb Conc 32.4 g/dL (32-36); Mean Corpuscular Volume 85.3 fL (80-100); Mean Platelet Volume 10.8 fL (7.4-10.4); Monocytes # (auto) 0.68 K/uL (0.11-0.59); Monocytes % (auto) 8.2 %; Neutrophils # (auto) 5.18 K/uL (1.4-6.5); Neutrophils % (auto) 62.8 %; Platelet Count 222 K/uL (130-400); RDW Coefficient of Variation 14.8 % (11.5-14.5); RDW Standard Deviation 45.8 fL (36.4-46.3); Red Blood Count 4.82 M/uL (4.2-5.4); White Blood Count 8.25 K/uL (4.8-10.8)
[2020-01-09 04:42] LABS: BUN Creatinine Ratio 10.1 (10-20); Calcium 8.7 mg/dl (8.5-10.1); Est GFR (African American) 82.3; Potassium 3.4 mmol/L (3.5-5.1)
[2020-01-09 04:47] LABS: Phosphorus 3.5 mg/dl (2.5-4.9); Troponin I 0.076 ng/ml (0-0.045)
[2020-01-09] MEDS ORDERED: POTASSIUM CHLORIDE 20 MEQ TABCR PO STA (05:23)
[2020-01-09] MEDS: POTASSIUM CHLORIDE / WTR 10 MEQ/100 ML PLCT IV SCH ×3 (05:33→06:36)
[2020-01-09] MEDS ORDERED: ACETAMINOPHEN 325 MG TAB PO PRN (06:47)
[2020-01-09 06:58] LABS: Estimated Average Glucose 128 mg/dl; Hemoglobin A1C 6.1 % (4.5-5.6)
[2020-01-09] MEDS: CLOPIDOGREL BISULFATE 75 MG TAB PO SCH (07:51)
[2020-01-09] MEDS: ATORVASTATIN 40 MG TAB PO SCH (07:51)
--- NOTE | 2020-01-09 07:59 | Magnetic Resonance Report ---
MR brain wo/w con HISTORY: 74 years-old Female dysphagia, R facial droop acute strokelike symptoms with right-sided fa cial droop COMPARISON: Head CT 01/08/2020 TECHNIQUE: Multiplanar multisequence MRI of the brain was obtained both with and without the use of 1 0.5 mL Gadavist FINDINGS: Shoemaking Cutter localizer images demonstrate no gross extracranial abnormality. There is an ovoid focus of rest ricted diffusion centered within the left posterolateral aspect of the lentiform nucleus within the d istribution of the putamen, 1.5 x 0.8 cm (image 13 series 5). Additional ill-defined areas of restric velvet diffusion are noted within the superior aspect of the left lentiform nucleus as seen on images 14 and 15 series 5. This area demonstrates increased T2/FLAIR signal with normal T1 signal and no abnor mal enhancement. No acute territorial infarct. No pathologic blooming artifact on the T2 star series. Mildly motion de graded exam. Midline structures including the corpus callosum, brainstem, optic chiasm, pituitary and pineal glands are unremarkable as seen on the sagittal T1 series. No cerebellar tonsillar herniation . Degenerative changes are noted involving the imaged cervical spine. Age-related involutional change s. Mild to moderate patchy white matter T2/FLAIR hyperintensities are suggestive of chronic microvasc ular ischemic disease. No acute intracranial hemorrhage, midline shift, abnormal extra-axial collecti on, hydrocephalus or intracranial mass. Major vascular flow voids are patent. Small right mastoid eff usion. Skull, soft tissues and orbits are unremarkable. IMPRESSION: 1. 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 2. No abnormal enhancement. 3. Age-related involutional changes with mild to moderate T2/FLAIR hyperintensities within the white matter suggestive of chronic microvascular ischemic disease. ACT 112: Negative or not required by law. The above report was generated using voice recognition software. It may contain grammatical, syntax o r spelling errors. Electronically signed by: Skip Coronado M.D. 01/09/2020 7:58 AM
--- NOTE | 2020-01-09 09:03 | Critical Care Progress Note ---
Date of Service January 09, 2020 Assessment & Plan (1) Status post admission to intensive care unit: 74-year-old female with past medical history of hypertension, GERD, obesity and IBS presenting with strokelike symptoms and hypertensive emergency. Neurologic: Continue daily Plavix. Appreciate neurology input. MRI of the brain suggestive of acute versus subacute infarct in the left lentiform nucleus. Age-related involutional changes with mild to moderate T2 flair hyperdensities within the white matter suggestive of chronic microvascular ischemic disease. She does have a high-grade narrowing of the posterior cerebral arteries based on the CTA and moderate luminal narrowing of the anterior and middle cerebral arteries. Echo pending. Will need PT/OT. Speech evaluation cleared her for regular diet. Pulmonary: No issues currently. Will likely need an evaluation for obstructive sleep apnea as an outpatient. Cardiovascular: Starting 10 mg of lisinopril daily today. Will likely need additional antihypertensives. Did not want to drop her pressure too much in the first 48- hour period. Troponins peaked. Likely related to demand ischemia. Echo pending. Gastrointestinal: Low-salt diet. Renal: Low potassium being repleted today. Infectious disease: No issues. Hematologic: No issues. Endocrine: ICU hyperglycemic protocol. Glucose within normal limits currently. F/E/N: Peripheral IVs in place. Lines and tubes: Peripheral IVs in place. VTE prophylaxis: SCDs. She is ambulating. CODE STATUS: Full She can be transferred to the floor with telemetry. (2) Hypertensive emergency: (3) Stroke-like symptoms: (4) Elevated troponin: Admission and Anticipated Discharge Date Admission Date: January 08, 2020 Subjective Patient doing well today. Denies any significant weakness numbness, tingling or chest pain. No dysarthria. She had some discomfort with the potassium repletion. Blood pressures improved overnight. Physical Exam Constitutional: WD/WN, vitals as above Eyes: PERRL, conjunctivae normal, anicteric sclerae ENMT: external ear and nose normal, oropharynx normal Neck: trachea midline, no thyromegaly Respiratory: normal respiratory effort, lungs clear to auscultation Cardiovascular: RRR, no murmur, no edema Gastrointestinal (Abdomen): normal bowel sounds, soft, nontender, no hepatosplenomegaly Musculoskeletal: no cyanosis or clubbing, extremities motor strength 5/5 Skin: no rashes, warm and dry Neurologic: PERRL, EOMI, accommodation nl, no face palsy, no dysarthria Cranial Nerves: normal facial strength Psychiatric: A+Ox3, euthymic affect Results & Data Results & Data ([facility]) Vital Signs (Past 12 Hours) Vital Signs Temp Pulse Resp BP Pulse Ox 01/09/20 06:00 71 19 175/78 H 94 01/09/20 05:00 66 23 159/79 H 94 01/09/20 03:59 98.2 F 67 28 H 164/77 H 94 01/09/20 02:59 62 17 150/69 H 91 01/09/20 01:59 56 L 16 145/71 H 93 01/09/20 01:00 62 23 179/78 H 96 01/09/20 00:00 66 01/08/20 23:59 98.2 F 57 L 19 164/74 H 94 01/08/20 22:59 72 26 H 183/83 H 95 01/08/20 22:00 68 24 192/82 H 94 01/08/20 20:59 61 22 163/75 H 96 Coding Level of Care Code 71953 Subseq Hosp Care Lvl 2 Diagnoses Status post admission to intensive care unit Hypertensive emergency I16.1 Stroke-like symptoms R29.90 Elevated troponin R79.89
[2020-01-09] MEDS: lisinopriL 10 MG TAB PO SCH (09:25)
--- NOTE | 2020-01-09 16:42 | Hospitalist Progress Note ---
Date of Service January 09, 2020 Assessment & Plan (1) CVA (cerebral vascular accident): Acute stroke -This is a 74 yo F with a PMH of CKD III, GERD and IBS who presents with stroke like symptoms starting of morning 01/09/2020 as (Right sided weakness on and then with dysarthria, dysphagia and R sided facial droop) -admission Head CT negative for intracranial abnormality and CTA of head/neck with high-grade narrowing of SILVERWARE WASHER but no evidence of aneurysm, dissection or occlusion -[place] neurology recommended dual antiplatelet therapy but patient with aspirin allergy was instead Given loading dose of plavix through NG tube on admission day, then patient admitted from ED to ICU level of care -Brain MRI confirms that patient symptoms were from an acute stroke (Acute versus subacute infarct of the left lentiform nucleus) -01/09/2020: patient transfer out of ICU level of care, echocardiogram complete with results pending, continuing clopidogrel 75 mg daily, patient eating without acute concerns of speech and swallow services, patient was evaluated by PT/OT, patient does not report of acute motor weakness, blood pressure improving, patient to be continued to be monitored on telemetry -HbA1c 6.1, lipid panel reviewed, plans to start atorvastatin 40 mg daily possible Essential Tremors -history of tremors (2) Elevated troponin: -admission troponin of 0.114 -echocardiogram reports pending upload to EMR (3) Hypertensive emergency: -BP up to 227/96 during arrival with associated troponin elevation of 0.114 -blood pressure controlled and to continue lisinopril 10 mg daily for now (4) Hypokalemia: -admission serum potassium 2.9 -serum potassium improving after potassium supplementation on this admission DVT Ppx: SCDs Code status: FULL Admission and Anticipated Discharge Date Admission Date: January 08, 2020 Subjective No acute distress. patient speaking generally well. there is still presence of some facial droop. no gross motor deficits. sometimes patient seem with tremors which she says is chronic and happens intermittently. no vomiting. no problems with the meals. no chest pain. no shortness of breath. no dizziness. no lightheadedness. patient reports she performed well with therapy Review of Systems Review of Systems: All systems reviewed & are unremarkable except as noted in Subjective Physical Exam Constitutional: comfortable Eyes: PERRL, conjunctivae normal, anicteric sclerae EOM intact bilaterally ENMT: external ear and nose normal, oropharynx normal Neck: trachea midline, no thyromegaly normal visual inspection Respiratory: normal respiratory effort, lungs clear to auscultation Cardiovascular: Rate/Rhythm: regular rate Gastrointestinal (Abdomen): normal bowel sounds, soft, nontender, no hepatosplenomegaly Musculoskeletal: Head/Neck/Chest: normocephalic Neurologic: extraoccular movements intact, mild facial droop Psychiatric: A+Ox3, euthymic affect Results & Data Results & Data ([facility]) Vital Signs (Past 12 Hours) Vital Signs Temp Pulse Pulse Resp BP BP Pulse Ox 01/09/20 16:00 67 01/09/20 12:00 67 01/09/20 10:01 67 21 94 01/09/20 09:59 66 22 127/97 94 01/09/20 09:34 93 01/09/20 09:30 68 15 94 01/09/20 09:25 79 25 H 149/66 H 94 01/09/20 09:10 180/76 H 95 01/09/20 09:00 70 17 94 01/09/20 08:30 78 19 94 01/09/20 08:00 37.0 C 68 89 18 167/81 H 92 01/09/20 07:30 76 22 94 01/09/20 07:01 68 23 94 01/09/20 07:00 77 17 167/87 H 95 01/09/20 06:31 67 26 H 95 01/09/20 06:00 71 19 175/78 H 94 01/09/20 05:00 66 23 159/79 H 94
--- NOTE | 2020-01-09 20:15 | Progress Notes ---
DATE: 01/09/2020 SUBJECTIVE: I am seeing the patient in followup of a variety of neurologic symptoms including dysarthria and possible language dysfunction. Her MRI of the brain shows a left lenticular form nucleus infarction. CTA of the head and neck did not show any anterior circulation stenosis, although did show WAITER/WAITRESS BAR stenosis. Echocardiogram has not yet been reported. The patient's LDL cholesterol is 98. Most recent blood pressure 143/76, 64, 18, 36.9, 96% on room air. PHYSICAL EXAMINATION: GENERAL: The patient is awake and alert. Speech and language appear unremarkable. Naming, repetition and 3-step commands are normal. Normal visual vargas, facial symmetry. Motor 5/5, no drift. Normal rapid alternating movements. Modest tremor with intention. IMPRESSION: Left lenticular form infarction. Continue Plavix as the patient is ASPIRIN allergic. Gradual reduction of blood pressure. Begin statin with goal LDL of 70 or less. 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 The patient should see us in followup post discharge.
[2020-01-10 08:23] LABS: Basophils # (auto) 0.03 K/uL (0-0.2); Basophils % (auto) 0.4 %; Eosinophils # (auto) 0.29 K/uL (0-0.5); Eosinophils % (auto) 3.6 %; Hematocrit (blood only) 41.4 % (37-47); Hemoglobin 12.8 g/dL (12.0-16.0); Immature Granulocytes # (auto) 0.02 K/uL (0.00-0.02); Immature Granulocytes % (auto) 0.2 %; Lymphocytes # (auto) 2.11 K/uL (1.2-3.4); Lymphocytes % (auto) 26.3 %; Mean Corpuscular Hemoglobin 27.2 pg (25-34); Mean Corpuscular Hgb Conc 30.9 g/dL (32-36); Mean Corpuscular Volume 88.1 fL (80-100); Mean Platelet Volume 11.5 fL (7.4-10.4); Monocytes # (auto) 0.68 K/uL (0.11-0.59); Monocytes % (auto) 8.5 %; Platelet Count 226 K/uL (130-400); RDW Standard Deviation 48.6 fL (36.4-46.3); White Blood Count 8.03 K/uL (4.8-10.8)
[2020-01-10] MEDS: CLOPIDOGREL BISULFATE 75 MG TAB PO SCH (08:41)
[2020-01-10] MEDS: ATORVASTATIN 40 MG TAB PO SCH (08:41)
[2020-01-10] MEDS: lisinopriL 10 MG TAB PO SCH (08:41)
[2020-01-10 08:47] LABS: BUN Creatinine Ratio 13.6 (10-20); Calcium 8.7 mg/dl (8.5-10.1); Est GFR (African American) 74.5; Est GFR (Non-African American) 64.3; Potassium 3.3 mmol/L (3.5-5.1)
[2020-01-10] MEDS ORDERED: lisinopriL 10 MG TAB PO ONE (13:12)
[2020-01-10] MEDS ORDERED: POTASSIUM CHLORIDE 10 MEQ TABCR PO STA (13:13)
[2020-01-10] MEDS ORDERED: AMLODIPINE BESYLATE 5 MG TAB PO SCH (13:15)
[2020-01-10] MEDS ORDERED: STROKE PATIENT DISCHARGE STA (13:27)
--- NOTE | 2020-01-10 13:40 | Hospitalist Progress Note ---
Date of Service January 10, 2020 Assessment & Plan (1) CVA (cerebral vascular accident): Acute stroke -This is a 74 yo F with a PMH of CKD III, GERD and IBS who presents with stroke like symptoms starting of morning 01/09/2020 as (Right sided weakness on and then with dysarthria, dysphagia and R sided facial droop) -admission Head CT negative for intracranial abnormality and CTA of head/neck with high-grade narrowing of PUTTY AND CAULKING SUPERVISOR but no evidence of aneurysm, dissection or occlusion -[place] neurology recommended dual antiplatelet therapy but patient with aspirin allergy was instead Given loading dose of plavix through NG tube on admission day, then patient admitted from ED to ICU level of care -Brain MRI confirms that patient symptoms were from an acute stroke (Acute versus subacute infarct of the left lentiform nucleus) -01/09/2020: patient transfer out of ICU level of care, echocardiogram complete with results pending, continuing clopidogrel 75 mg daily, patient eating without acute concerns of speech and swallow services, patient was evaluated by PT/OT, patient does not report of acute motor weakness, blood pressure improving, patient to be continued to be monitored on telemetry -HbA1c 6.1, lipid panel reviewed, plans to start atorvastatin 40 mg daily -01/10/202 updates: Patient's overall blood pressures have improved on this admission. no acute headache. no dizziness. speaking clearly with mild facial droop. no focal motor deficits. no chest pain. no shortness of breath. breathing on room air. Patient initially concerned of lip paresthesia as related to clopidogrel because of previous experiences with aspirin. on re-assessment she feels that these sensations resolving. she was offered further hospital monitoring or switch to an alternative blood thinner but she declined and and wishes to go home. -01/11/2020 discharge plans no acute telemetry events noted, patient may benefit from outpatient telemetry monitoring with ZIO patch which can be set up by primary care or neurology clinics, discharge medications sent electronically to [facility] pharmacy [facility] [place] [id number] clopidogrel 75 mg daily blood pressure medications of amlodipine 10 mg daily, lisinopril 20 mg daily atorvastatin 40 mg daily potassium 10 meq daily for 10 days patient should have follow clinic appointments for follow up up of blood pressures with manager long term care goals of maintaining blood pressure for 140/90 or less but above 100/60. Patient should have follow up serum potassium labs and follow the renal function outpatient appointments 01/15/2020 8:40 AM Provider Mandie Escalera PA-C Department Family Practice [facility] 02/11/2020 11:20 AM Provider Dai Hutchison PA-C Department Neurology [facility] 02/18/2020 9:00 AM Provider Laboratory [place] [facility] [place] 03/07/2020 9:20 AM Provider Frank Pittman MD Department [facility] (2) Elevated troponin: -admission troponin of 0.114. no chest pain. echocardiogram with focal basal hypokinesis with otherwise preserved wall motion, ejection fraction is normal between 60 to 65% and no atrial septal defect, patient should have follow up echocardiogram as per primary care doctor (3) Hypertensive emergency: Hypertensive emergency/Hypertension -BP up to 227/96 during arrival with associated troponin elevation of 0.114 -blood pressure controlled and to continue lisinopril 10 mg daily for now (4) Hypokalemia: -admission serum potassium 2.9 -serum potassium improving after potassium supplementation on this admission -continue potassium as 10 meq daily possible Essential Tremors -history of tremors DVT Ppx: SCDs Code status: FULL Admission and Anticipated Discharge Date Admission Date: January 08, 2020 Subjective Patient's overall blood pressures have improved on this admission. no acute headache. no dizziness. speaking clearly with mild facial droop. no focal motor deficits. no chest pain. no shortness of breath. breathing on room air. Patient initially concerned of lip paresthesia as related to clopidogrel because of previous experiences with aspirin. on re-assessment she feels that these sensations resolving. she was offered further hospital monitoring or switch to an alternative blood thinner but she declined and and wishes to go home. Review of Systems Review of Systems: All systems reviewed & are unremarkable except as noted in Subjective Physical Exam Constitutional: comfortable Eyes: PERRL, conjunctivae normal, anicteric sclerae EOM intact bilaterally ENMT: external ear and nose normal, oropharynx normal Neck: trachea midline, no thyromegaly normal visual inspection Respiratory: normal respiratory effort, lungs clear to auscultation Cardiovascular: Rate/Rhythm: regular rate Gastrointestinal (Abdomen): normal bowel sounds, soft, nontender, no hepato splenomegaly Musculoskeletal: Head/Neck/Chest: normocephalic Neurologic: CN's II-XI intact bilaterally (patient's facial droop improved) Psychiatric: A+Ox3, euthymic affect Results & Data Results & Data ([facility]) Vital Signs (Past 12 Hours) Vital Signs Temp Pulse Pulse Resp BP Pulse Ox 01/10/20 11:11 36.5 C 69 18 169/82 H 95 01/10/20 07:29 36.9 C 68 18 158/75 H 95 01/10/20 07:07 62 01/10/20 04:00 36.4 C L 67 18 138/70 94
--- NOTE | 2020-01-10 13:47 | Discharge Summary ---
Date of Service January 10, 2020 Admission HPI Per Admitting Provider This is a 74 yo F with a PMH of CKD III, GERD and IBS who presents with stroke like symptoms starting this morning. Patient was watching the news last evening and noticed right-sided weakness when walking back to bedroom, resulting in her falling forward. Denies head trauma or LOC. Was able to get up and ambulate to bed. Woke up at 0700 this morning with slurred speech and right-sided facial droop and came to ED for further evaluation. In the ED, BP is elevated, ranging from 180-220/96-110. Head CT negative for intracranial abnormality and CTA of head/neck with high-grade narrowing of [employer]ICE but no evidence of aneurysm, dissection or occlusion. ED provider spoke with [employer] neurology during stroke alert, but was out of tpa window and no other intervention was possible at this time. Dual antiplatelet therapy was recommended, however patient has allergic reaction of lip swelling to aspirin. Dyarthria and facial droop improved initially on presentation but then worsened again by hospitalist time of evaluation. Also began to experienced R sided chest pain that felt like gas pain as well as frontal headache. Denies fever, chills, lightheadedness, visual changes, cough, chest pain, palpitations, shortness of breath, abdominal pain, nausea, vomiting, dysuria, constipation or diarrhea. Failed dysphagia screen so Plavix was given though NG tube. Brain MRI w/wo and echo with bubble study ordered. Discussed with Dr. Patino of neurology, who will evaluate patient. Will be monitored in ICU Principal Diagnosis Acute stroke Elevated troponin Hypertensive emergency/Hypertension Hypokalemia possible Essential Tremors Discharge Exam Constitutional comfortable Eyes PERRL, conjunctivae normal, anicteric sclerae EOM intact bilaterally ENMT external ear and nose normal, oropharynx normal Neck trachea midline, no thyromegaly normal visual inspection Respiratory normal respiratory effort, lungs clear to auscultation Cardiovascular Rate/Rhythm: regular rate Gastrointestinal (Abdomen) normal bowel sounds, soft, nontender, no hepatosplenomegaly Musculoskeletal Head/Neck/Chest: normocephalic Neurologic CN's II-XI intact bilaterally (patient's facial droop improved) Psychiatric A+Ox3, euthymic affect Discharge Data Allergies Allergy/AdvReac Type Severity Reaction Status Date / Time aspirin Allergy Unknown LIPS SWELL Verified 01/08/20 10:03 silver AdvReac Mild Rash Verified 01/08/20 10:03 DECONGESTANTS Allergy Severe LIPS SWELL Uncoded 01/08/20 10:03 Consultations 01/08/20 11:02 ED Decision to Admit Stat 01/08/20 16:13 Consult Case Management - Discharge Planning Routine Consult Resource Engineer Stat Consult Neurology Routine Ordered Studies 01/08/20 09:14 CT angio head w con Stat CT angio neck with con Stat CT head/brain wo con Stat 01/08/20 16:13 MR brain wo/w con Urgent Hospital Course (1) CVA (cerebral vascular accident): Acute stroke -This is a 74 yo F with a PMH of CKD III, GERD and IBS who presents with stroke like symptoms starting of morning 01/09/2020 as (Right sided weakness on and then with dysarthria, dysphagia and R sided facial droop) -admission Head CT negative for intracranial abnormality and CTA of head/neck with high-grade narrowing of [employer] but no evidence of aneurysm, dissection or occlusion -[facility] neurology recommended dual antiplatelet therapy but patient with aspirin allergy was instead Given loading dose of plavix through NG tube on admission day, then patient admitted from ED to ICU level of care -Brain MRI confirms that patient symptoms were from an acute stroke (Acute versus subacute infarct of the left lentiform nucleus) -01/09/2020: patient transfer out of ICU level of care, echocardiogram complete with results pending, continuing clopidogrel 75 mg daily, patient eating without acute concerns of speech and swallow services, patient was evaluated by PT/OT, patient does not report of acute motor weakness, blood pressure improving, patient to be continued to be monitored on telemetry -HbA1c 6.1, lipid panel reviewed, plans to start atorvastatin 40 mg daily -01/10/202 updates: Patient's overall blood pressures have improved on this admission. no acute headache. no dizziness. speaking clearly with mild facial droop. no focal motor deficits. no chest pain. no shortness of breath. breathing on room air. Patient initially concerned of lip paresthesia as related to clopid ogrel because of previous experiences with aspirin. on re-assessment she feels that these sensations resolving. she was offered further hospital monitoring or switch to an alternative blood thinner but she declined and and wishes to go home. -01/11/2020 discharge plans no acute telemetry events noted, patient may benefit from outpatient telemetry monitoring with ZIO patch which can be set up by primary care or neurology clinics, discharge medications sent electronically to [facility] pharmacy [facility] [place] [address] clopidogrel 75 mg daily blood pressure medications of amlodipine 10 mg daily, lisinopril 20 mg daily atorvastatin 40 mg daily potassium 10 meq daily for 10 days patient should have follow clinic appointments for follow up up of blood pressures with [facility] goals of maintaining blood pressure for 140/90 or less but above 100/60. Patient should have follow up serum potassium labs and follow the renal function outpatient appointments 01/15/2020 8:40 AM Provider Mandie Escalera PA-C Department Family Practice [facility] 02/11/2020 11:20 AM Provider Dai Hutchison PA-C Department Neurology [facility] 02/18/2020 9:00 AM Provider [facility] [place] [facility] [place] 03/07/2020 9:20 AM Provider Frank Pittman MD Department [facility] (2) Elevated troponin: -admission troponin of 0.114. no chest pain. echocardiogram with focal basal hypokinesis with otherwise preserved wall motion, ejection fraction is normal between 60 to 65% and no atrial septal defect, patient should have follow up echocardiogram as per primary care doctor (3) Hypertensive emergency: Hypertensive emergency/Hypertension -BP up to 227/96 during arrival with associated troponin elevation of 0.114 -blood pressure controlled and to continue lisinopril 10 mg daily for now (4) Hypokalemia: -admission serum potassium 2.9 -serum potassium improving after potassium supplementation on this admission -continue potassium as 10 meq daily possible Essential Tremors -history of tremors DVT Ppx: SCDs Code status: FULL Total Time Total Time Spent Total Time Spent (In Minutes): 40 minutes Total Time Includes: Examination of the Patient, Discharge Planning, Medication Reconciliation and Communication With Other Providers Discharge Plan Discharge Items Patient Disposition: Home - Self-Care Reason For Visit: DYSPHAGIA,R FACIAL DROOP Discharge Diagnosis: Acute stroke Elevated troponin Hypertensive emergency/Hypertension Hypokalemia possible Essential Tremors Condition on Discharge: Good Activity: Per Instructions section Non-emergency contact: Primary Care Provider and Neurologist Call non-emergency contact if: you have any medication questions Follow-up/Referrals: Frank Pittman MD [Primary Care Provider] - 01/15/20 8:40 am Addtl Attending Provider Instructions: This is a 74 yo F with a PMH of CKD III, GERD and IBS who presents with stroke like symptoms starting of morning 01/09/2020 as (Right sided weakness on and then with dysarthria, dysphagia and R sided facial droop). symptoms improved admission troponin of 0.114. no chest pain. echocardiogram with focal basal hypokinesis with otherwise preserved wall motion, ejection fraction is normal between 60 to 65% and no atrial septal defect no acute telemetry events noted, patient may benefit from outpatient telemetry monitoring with ZIO patch which can be set up by primary care or neurology clinics, patient should have follow up echocardiogram as per primary care doctor discharge medications sent electronically to [facility] pharmacy [address] [place] [id number] clopidogrel 75 mg daily blood pressure medications of amlodipine 10 mg daily, lisinopril 20 mg daily atorvastatin 40 mg daily potassium 10 meq daily for 10 days patient should have follow clinic appointments for follow up up of blood pressures with pharmacy customer care specialist goals of maintaining blood pressure for 140/90 or less but above 100/60. Patient should have follow up serum potassium labs and follow the renal function outpatient appointments 01/15/2020 8:40 AM Provider Mandie Escalera PA-C Department Family Practice [facility] 02/11/2020 11:20 AM Provider Dai Hutchison PA-C Department Neurology [facility] 02/18/2020 9:00 AM Provider [facility] [place] [facility] [place] 03/07/2020 9:20 AM Provider [facility] Pending Studies at Discharge: No Stand-Alone Forms: Medications to Prevent Stroke, My [facility] [employer], Smoking Cessation Medications and DC Order Prescriptions: New atorvastatin 40 mg Tablet 40 mg PO QAM 30 Days Qty: 30 RF: 0 lisinopril 20 mg Tablet 20 mg PO QAM 30 Days Qty: 30 RF: 0 clopidogrel 75 mg Tablet 75 mg PO QAM 30 Days Qty: 30 RF: 0 amlodipine [Norvasc] 5 mg Tablet 10 mg PO QAM 30 Days Qty: 60 RF: 0 potassium chloride [Klor-Con M10] 10 mEq Tablet,Er Particles/Crystals 10 meq PO DAILY 10 Days Qty: 10 RF: 0 Discontinued Metamucil 3.4 gram/5.4 gram Powder 1 tbsp PO DAILY@1100 RF: 0 simethicone [Gas-X Extra Strength] 125 mg Capsule 125 mg PO HS RF: 0 Discharge Orders: Discharge Order (Routine); Ordered 01/10/20 Ordered By: Kareem Garza/Other Patient Handouts: A1C Admission Data Admit Date/Time: 01/08/20 11:39 Attending Provider: Kareem Desir Admit Provider: Kelechi Rose Primary Care Provider: Frnak Pittman Other Providers: Kelechi Rose ; Ruslan Velasquez ; Dai Hutchison ; Freddy Krishnamurthy ; Dai Patino ; Ralph Russo
--- NOTE | 2020-01-10 13:58 | Pharmacy Report ---
Pharmacist Stroke Counseling - Date of Service January 10, 2020 - Scope: Pharmacy has been consulted to provide medication discharge counseling for this patient admitted with [ischemic stroke] [hemorrhagic stroke] [transient ischemic attack] as per the Pharmacist Discharge Counseling for Stroke Patients Irene abdi - Medications on Discharge: New Rx's Medication Instructions Recorded amlodipine [Norvasc] 10 mg PO QAM 30 Days #60 tab 01/10/20 atorvastatin 40 mg PO QAM 30 Days #30 tab 01/10/20 clopidogrel 75 mg PO QAM 30 Days #30 tab 01/10/20 lisinopril 20 mg PO QAM 30 Days #30 tab 01/10/20 potassium chloride [Klor-Con M10] 10 meq PO DAILY 10 Days #10 tab 01/10/20 - Action: The above medications, specifically ones for stroke treatment/prophylaxis, have been reviewed in detail with the patient prior to discharge. This includes indication, common adverse reactions, drug interactions, and medication administration. Medication counseling has been employed using the teach-back method to ensure understanding. - Outcome: The patient has demonstrated understanding of the medications. Additional comments: -patient about to tell me what new medications are for. -reviewed all new medications no problems -sent pill box. Thank you for allowing pharmacy to be involved in the care of this patient. Please call [phone] with any additional questions
[2020-01-11] MEDS ORDERED: POTASSIUM CHLORIDE 10 MEQ TABCR PO SCH (09:00)
[2020-01-11] MEDS ORDERED: lisinopriL 20 MG TAB PO SCH (09:00)
== END 2020-01-10 14:27 | disposition home or self-care (01) | DRG 65 ==
LOC: ED 09:09 → SUATTDRO 11:39 → 1E 11:39 → 2N 01-09 12:38

== ENCOUNTER 2025-02-22 11:11 | Inpatient (IN) ==
--- NOTE | 2025-02-22 11:29 | Emergency Department Note ---
Impression & Plan CVA (cerebral vascular accident) ED Provider Note Name: ЕКАТЕРИНА WHITEHEAD Age: 79 Sex: Female Arrives Via: Walk-In Informant: Patient, Son ED Provider: Mehran Mendoza MD Chief Complaint: Strokelike symptoms Impression: as per impressions above Medical Decision Making: Pleasant 79-year-old female with a history of a remote CVA not on any antiplatelets as well as GERD arrives for evaluation of strokelike symptoms. Patient with about 24 hours of difficulty speaking, right-sided facial weakness and some mild confusion. On examination noted to have these findings though no focal deficits in arms or legs. She is awake oriented and interactive. CT of the head with angiography obtained. Laboratory workup obtained is fortunately unremarkable. CT imaging does show some diffuse vascular issues. I discussed this with teleneurology who reviewed the films and do not feel there is any acute intervention necessary. 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 Hospitalist consulted for further management. Triage/Nursing Notes reviewed by Me Of note patient is not a TNKase candidate given the symptoms ongoing since yesterday. External Chart Review by me: Discharge summary 01/10/20 discussing her previous hospitalization for stroke. Differential:Infection, dehydration, metabolic abnormality, hypo/hyperglycemia, electrolyte disturbance, anemia, hypoxia, cardiac sources, intracerebral event, toxicologic, neurologic, as well as other pathologies. Vital Signs: reviewed and remarkable for HTN Interventions: plavix 75mg PO Labs:ED labs Reviewed by me and remarkable for no significant abnormalities Imaging:CT of the head without contrast as per my informal interpretation. No intracranial hemorrhage or mass effect appreciated. CT angiography of the head neck revealed diffuse vascular stenosis. As per radiologist. EKG:As per my interpretation. Indication strokelike symptoms. Sinus rhythm at 76. Per minute with frequent PACs as well as PVC. No ischemia appreciated. QTc of 450. When compared to EKG of September 15, 2022 no significant change. Cardiac/Tele Monitoring: Cardiac Monitoring: An Order was placed for continuous cardiac monitoring. The monitor shows a rate of 70 with a normal sinus rhythm. Consults:Discussed with stroke neurologist Dr. Alvarado at [facility] who agrees with plan to hospitalize at this location for further workup. Discussed with hospital service who will further evaluate and manage. Plan: Disposition:Hospitalization. Condition: Fair History of Present Illness: 79-year-old female arrives for evaluation strokelike symptoms. Patient with a history of CVA about 5 years ago which had resolved. She has not been on any anticoagulation or antiplatelets. Notes an allergy to aspirin as it causes swelling. Patient states that yesterday morning she noticed difficulty speaking, some confusion and right-sided facial weakness. More tremulous than normal and a bit weak. Due to persistent symptoms brought in by son this morning to the ER. Patient denies any headache, neck pain, chest pain, shortness of breath, fevers, chills, abdominal pain, back pain, vision changes, leg swelling, heart palpitations or other concerning signs or symptoms. She has had no recent falls, trauma, or injuries. She denies a history of hypertension, dyslipidemia, smoking, diabetes. Son notes this is very similar to her stroke about 5 years ago. Past Medical History: GERD, CVA Home Medications: Metamucil, simethicone Allergies: Aspirin, naphazoline, phenylephrine, pseudoephedrine, silver Vitals:Blood Pressure: 170/76, Pulse 79, RR 16, T 36.3C, O2 95% on RA Physical Exam: GENERAL: Patient is slightly confused/anxious appearing and in minimal distress. Dehydrated appearing with dry mucous membranes RESPIRATORY: No dyspnea. Clear to auscultation and equal bilaterally. CARDIOVASCULAR: Regular rate and rhythm.No murmur appreciated. GASTROINTESTINAL: Abdomen soft, non-tender, no peritonitis. EXTREMITIES: Normal motion all extremities, no cyanosis, no edema. NEUROLOGIC: Alert and oriented with some word finding difficulty and slight confusion. She is a bit tremulous as well. She is able to ambulate from chair to bed without evidence of weakness. She does have right facial weakness which is overcome by involuntary muscles. No specific slurred speech. SKIN: No rash, no jaundice, no diaphoresis. PSYCH: Appropriate GCS: 15 ED Course: Times/Reassessments: Multiple repeat evaluations. Patient stable throughout stay. Mehran Mendoza MD Past Med/Surg History Problem List (Updated 02/22/25 @ 17:24 by Mehran Mendoza MD) Vertebral artery stenosis GERD (gastroesophageal reflux disease) (Chronic) Osteoarthritis Elevated troponin (Acute) Stroke-like symptoms Hypertensive emergency CVA (cerebral vascular accident) (Acute) Hypokalemia Encounter for pre-operative examination Medical History Borderline high cholesterol Cardiac murmur MILD--follows with PCP Diverticulitis HX GERD (gastroesophageal reflux disease) Hiatal hernia History of colon polyps History of stroke DECEMBER 2019 - RESIDUAL EFFECT: ONCE IN A WHILE SPEECH SLURRED AND THERAPY FOR WRITING Macular degeneration 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 Morbid obesity with BMI of 40.0-44.9, adult Surgical History H/O cervical spine surgery BONE CHIP REMOVAL History of anesthesia reaction SLOW TO WAKE UP History of bilateral cataract extraction History of bilateral tubal ligation History of cholecystectomy History of colonoscopy History of esophagogastroduodenoscopy (EGD) History of tooth extraction Family History Father No problems noted. Mother Family history of diabetes mellitus Other No family history of adverse response to anesthesia Social History Smoking Status: Never smoker Second Hand Exposure: No; Do You Dip or Chew Tobacco: No; Hx Alcohol Use: No Hx Substance Use: No Preferred Language: Samoan Communication Ability: Effective Rn Security Required: No Beliefs That Will Affect Care: None Current Living Situation: Spouse Current Living Situation Comment: pt lives/cares for with dementia at home. family assists as well Other Information That Helps Us Care for You: No Feels Safe at Home: Yes Safety Concerns: Feels Safe At This Time Assistive Devices: Denture - Upper and Denture - Lower Allergies Allergies Allergy/AdvReac Type Severity Reaction Status Date / Time aspirin Allergy Intermediate LIPS SWELL Verified 02/22/25 13:03 naphazoline Allergy Intermediate Lip Verified 02/22/25 13:03 swelling with "decongestants" perfume Allergy Intermediate [place]/Any Unverified 02/22/25 13:03 Fragrance - Difficulty Breathing phenylephrine Allergy Intermediate Lip Verified 02/22/25 13:03 swelling with "decongestants" pollen extracts Allergy Intermediate Nasal Unverified 02/22/25 13:03 Discharge pseudoephedrine Allergy Intermediate Lip Verified 02/22/25 13:03 swelling with "decongestants" tree and shrub pollen Allergy Intermediate Nasal Unverified 02/22/25 13:03 Discharge silver Allergy Mild Rash Verified 02/22/25 13:03 Home Meds Home Medications Medication Instructions Recorded Confirmed psyllium husk 3.4 gram/5.4 gram 1 tbsp PO QAM 02/18/20 02/22/25 oral powder (Metamucil) simethicone 125 mg chewable tablet 125 mg PO HS 02/18/20 02/22/25 (Gas-X Extra Strength) omeprazole 20 mg capsule,delayed 20 mg PO DAILYBB 02/22/25 02/22/25 release Results & Data (ED) Vital Signs Vital Signs - 24 hr 02/22/25 11:15 02/22/25 12:27 02/22/25 12:42 Temperature 36.3 C L Temperature Source Temporal Artery Scan Pulse Rate 79 75 73 Respiratory Rate 16 24 Blood Pressure 170/76 H 169/102 H Blood Pressure Mean 107 128 Pulse Oximetry 95 96 Oxygen Delivery Method Room Air Sepsis Recent Fever Within 48 Hours No Sepsis New/Unexplained Change in Mental Status N/A Sepsis Action Taken by Nursing No Action Required 02/22/25 12:42 Temperature Temperature Source Pulse Rate 86 Respiratory Rate 24 Blood Pressure 169/102 H Blood Pressure Mean 128 Pulse Oximetry 95 Oxygen Delivery Method Room Air Sepsis Recent Fever Within 48 Hours Sepsis New/Unexplained Change in Mental Status Sepsis Action Taken by Nursing Laboratory Data 02/22/25 11:23 02/22/25 11:23 Lab Results 02/22/25 02/22/25 Range/Units 11:23 11:26 WBC 9.19 (4.8-10.8) K/ul RBC 5.37 (4.20-5.40) M/uL Hgb 14.7 (12.0-16.0) g/dl POC Hgb 15.6 (12.0-16.0) g/dl Hct 46.5 (37.0-47.0) % POC Hct 46 (37-47) % MCV 86.6 (80.0-100.0) fL MCH 27.4 (25.0-34.0) pg MCHC 31.6 L (32.0-36.0) g/dL RDW Std Deviation 46.9 H (36.4-46.3) fL RDW Coeff of Rishabh 15.0 H (11.5-14.5) % Plt Count 229 (130-400) K/uL MPV 10.9 (9.4-12.4) fL Immature Gran % (Auto) 0.4 % Neut % (Auto) 68.3 % Lymph % (Auto) 23.5 % Gray % (Auto) 6.5 % Eos % (Auto) 0.9 % Baso % (Auto) 0.4 % Neut # (Auto) 6.27 (1.40-6.50) K/uL Lymph # (Auto) 2.16 (1.20-3.40) K/uL Gray # (Auto) 0.60 H (0.11-0.59) K/uL Eos # (Auto) 0.08 (0.00-0.50) K/uL Baso # (Auto) 0.04 (0.00-0.20) K/uL Immature Gran # (Auto) 0.04 (0.01-0.20) K/uL PT 11.4 (9.0-12.0) Seconds INR 1.1 (0.9-1.1) POC Sodium 144 (135-144) mmol/L Sodium 142 (136-145) mmol/L POC Potassium 4.0 (3.3-5.0) mmol/L Potassium 3.9 (3.5-5.1) mmol/L POC Chloride 108 (101-112) mmol/L Chloride 107 (98-107) mmol/L Carbon Dioxide 25 (21-32) mmol/L POC Total CO2 23 L (24-31) mmol/L Anion Gap 10 (3-11) POC Anion Gap 18.0 (16-25) mmol/L POC BUN 18 (7-18) mg/dl BUN 18 (6-23) mg/dl Creatinine 1.12 (0.6-1.2) mg/dl POC Creatinine 1.2 (0.6-1.3) mg/dl Est Cr Clr Drug Dosing Not Reportable eGFR 50.33 BUN/Creatinine Ratio 16.1 (10-20) Glucose 120 H (70-99(Fasting)) mg/dl POC Glucose (other) 116 H (70-99) mg/dl Calcium 9.5 (8.6-10.3) mg/dl POC Ioniz Calcium Nicki 1.13 (1.12-1.32) mmol/l Magnesium 2.0 (1.7-2.4) mg/dl Total Bilirubin 0.5 (0.2-1.0) mg/dl Direct Bilirubin 0.1 (0-0.2) mg/dl AST 16 (13-39) U/L ALT 11 (7-52) U/L Alkaline Phosphatase 84 (34-104) U/L Troponin I High Sens 6.0 (0-14) pg/ml B-Natriuretic Peptide 163 H (0-100) pg/ml Total Protein 8.0 (6.0-8.3) gm/dl Albumin 4.1 (3.4-5.0) gm/dl TSH 2.107 (0.300-4.500) uIu/ml Administered Medications Discontinued Medications Clopidogrel Bisulfate (Clopidogrel Bisulfate 75 Mg Tab) 75 mg PO NOW ONE Stop: 02/22/25 12:44 Last Admin: 02/22/25 13:03 Dose: 75 mg Documented By: SAADIA Sodium Chloride (Nss) 1,000 mls @ 999 mls/hr IV .Q1H1M ONE Stop: 02/22/25 12:24 Last Infusion: 02/22/25 12:43 Dose: Infused Documented By: Admin: 02/22/25 11:30 Dose: 999 mls/hr Documented By: HANNAH Ioversol (Optiray 320 125ml) 118 ml IV ONCE ONE Stop: 02/22/25 11:52 Last Admin: 02/22/25 11:52 Dose: 118 ml Documented By: MAXIMILIAN Imaging Data Radiologist's Impression: Head CTA 02/22/25 11:24 CT angio head wo/w CLINICAL HISTORY: Stroke: 24hrs rt face, slurred speech, confusion COMPARISON STUDY: Head CT, CTA of the head and MRI of the brain January 08, 2020. TECHNIQUE: Unenhanced and arterial phase imaging of the head was performed. Intravenous injection of 118 cc Optiray 320 IV was uneventful. Sagittal and coronal reformats were viewed as well as maximal intensity projections on an independent 3-D workstation. A dose lowering technique was utilized adhering to the principles of ALARA. FINDINGS: No acute intracranial hemorrhage, midline shift or mass effect is present. Ventricular system is unremarkable. The basal cisterns are patent. There are no axial collections. A 1.3 cm hypodensity within the left internal capsule on image 13 of 28 is new since prior CT. This may extend into the anterior aspect of the left thalamus. Hypodensities within the left lentiform nucleus correspond to the infarcts shown on MRI of January 08, 2020. No intracranial aneurysm is identified. There is severe stenosis of the anterior left M2 segment shown on image 98 of 251 which is new since exam of January 08, 2020. There are are moderate to severe stenoses within several additional smaller left sylvian branches. Left vertebral artery is dominant. Basilar artery is patent. There is persistence of the right posterior cerebral artery. There is moderate narrowing of the proximal right P2 segment. There is severe narrowing versus short segment occlusion with distal reconstitution of the right P2 3 segment shown on image 97. This is new since prior exam. There are moderate stenoses within the left posterior cerebral artery. IMPRESSION: 1. No acute intracranial hemorrhage. 2. 1.3 cm hypodensity within the left internal capsule which is new since prior head CT. This may represent an acute infarct. 3. 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 4. Severe stenosis versus short segment occlusion of the right P3 segment. Moderate stenosis within the left posterior cerebral artery. 5. Moderate to severe stenoses within several left sylvian branches, including a proximal left M2 segment. ACT 112: Negative or not required by law. Electronically signed by: Nash Deleon M.D. 02/22/2025 12:17 PM Neck CTA 02/22/25 11:24 CT angio neck with con CLINICAL HISTORY: 79 years-old Female with stroke. Acute stroke like symptoms COMPARISON STUDY: CTA neck neck 01/08/2020 TECHNIQUE: Following the IV administration of 118 mL of Optiray, CT angiogram of the neck was performed from the aortic arch to the skull base. Images are reviewed in the axial, sagittal, and coronal planes. 3-D MIPS images are created and assessed. IV contrast was administered without complication. All measurements were calculated based on NASCET criteria. A dose lowering technique was utilized adhering to the principles of ALARA. FINDINGS: Mild dilation of the main pulmonary artery may represent pulmonary arterial hypertension. Moderate atherosclerosis of the aorta with moderate stenosis at the origin left subclavian artery. The common carotid arteries are patent bilaterally. Atherosclerotic plaque of the carotid bulbs bilaterally causes less than 50% stenosis. Dominant left vertebral artery. There is tortuosity with high-grade stenosis at the origin of left vertebral artery, image 144 series 7 which is new from prior. Developmentally diminutive right vertebral artery appears patent. Lung apices appear clear. Unremarkable soft tissues. Levoscoliosis of the cervical spine. Multilevel degenerative changes of the spine. IMPRESSION: 1. Atherosclerosis of the carotid bulbs without stenosis. 2. High-grade stenosis at the origin of the left vertebral artery. ACT 112: Negative or not required by law. The above report was generated using voice recognition software. It may contain grammatical, syntax or spelling errors. Electronically signed by: Etienne Coronado M.D. 02/22/2025 12:13 PM Chest X-Ray 02/22/25 11:25 XR chest 1V portable CLINICAL HISTORY: [facility] [place] COMPARISON STUDY: 01/08/2020 FINDINGS: There is stable prominent cardiomegaly with mild pulmonary vascular congestion. Evaluation of the left lung base is limited by the overlying cardiac silhouette. Otherwise no consolidation or pleural effusion seen. No pneumothorax. IMPRESSION: Mild CHF. ACT 112: Negative or not required by law. Electronically signed by: Romie Gutierrez M.D. 02/22/2025 11:38 AM Discharge Plan Visit Data Chief Complaint: TIA Symptoms Stated Complaint: CAN'T COMPLETE SENTENCES,FACE DROOP ED Provider: Mehran Mendoza Discharge Problem: CVA (cerebral vascular accident) Patient Disposition: Admitted As Inpatient Condition: Fair Discharge Instructions Interventions: ED Discharge Assessment Last Done: 02/22/25 13:48 Discharge Problem: CVA (cerebral vascular accident) Qualifiers: CVA mechanism: unspecified Qualified Code(s): I63.9 - Cerebral infarction, unspecified
[2025-02-22] MEDS: SODIUM CHLORIDE 0.9% 1,000 ML IV ONE (11:30)
[2025-02-22 11:38] LABS: Hematocrit (blood only) 46.5 % (37.0-47.0); Hemoglobin 14.7 g/dl (12.0-16.0); Immature Granulocytes # (auto) 0.04 K/uL (0.01-0.20); Immature Granulocytes % (auto) 0.4 %; Mean Corpuscular Hemoglobin 27.4 pg (25.0-34.0); Mean Corpuscular Volume 86.6 fL (80.0-100.0); Platelet Count 229 K/uL (130-400); RDW Standard Deviation 46.9 fL (36.4-46.3); Red Blood Count 5.37 M/uL (4.20-5.40); White Blood Count 9.19 K/ul (4.8-10.8)
--- NOTE | 2025-02-22 11:39 | XRay Report ---
XR chest 1V portable CLINICAL HISTORY: [facility] COMPARISON STUDY: 01/08/2020 FINDINGS: There is stable prominent cardiomegaly with mild pulmonary vascular congestion. Evaluation of the left lung base is limited by the overlying cardiac silhouette. Otherwise no consolidation or p leural effusion seen. No pneumothorax. IMPRESSION: Mild CHF. ACT 112: Negative or not required by law. Electronically signed by: Romie Gutierrez M.D. 02/22/2025 11:38 AM
[2025-02-22] MEDS: OPTIRAY 320 125ml IV ONE (11:52)
[2025-02-22 11:57] LABS: Alanine Aminotransferase 11 U/L (7-52); Alkaline Phosphatase 84 U/L (34-104); Anion Gap 10 (3-11); Bilirubin,Total 0.5 mg/dl (0.2-1.0); Blood Urea Nitrogen 18 mg/dl (6-23); Calcium 9.5 mg/dl (8.6-10.3); Carbon Dioxide 25 mmol/L (21-32); Chloride 107 mmol/L (98-107); Glucose 120 mg/dl (70-99(Fasting)); Magnesium 2.0 mg/dl (1.7-2.4); Potassium 3.9 mmol/L (3.5-5.1); Sodium 142 mmol/L (136-145); Total Protein 8.0 gm/dl (6.0-8.3)
[2025-02-22 12:11] LABS: Thyroid Stimulating Hormone 2.107 uIu/ml (0.300-4.500)
[2025-02-22 12:12] LABS: INR 1.1 (0.9-1.1); Prothrombin Time 11.4 Seconds (9.0-12.0)
--- NOTE | 2025-02-22 12:16 | CT Scan Report ---
CT angio neck with con CLINICAL HISTORY: 79 years-old Female with stroke. Acute stroke like symptoms COMPARISON STUDY: CTA neck neck 01/08/2020 TECHNIQUE: Following the IV administration of 118 mL of Optiray, CT angiogram of the neck was perform ed from the aortic arch to the skull base. Images are reviewed in the axial, sagittal, and coronal pl anes. 3-D MIPS images are created and assessed. IV contrast was administered without complication. Al l measurements were calculated based on NASCET criteria. A dose lowering technique was utilized adhe ring to the principles of ALARA. FINDINGS: Mild dilation of the main pulmonary artery may represent pulmonary arterial hypertension. Moderate at herosclerosis of the aorta with moderate stenosis at the origin left subclavian artery. The common ca rotid arteries are patent bilaterally. Atherosclerotic plaque of the carotid bulbs bilaterally causes less than 50% stenosis. Dominant left vertebral artery. There is tortuosity with high-grade stenosis at the origin of left vertebral artery, image 144 series 7 which is new from prior. Developmentally diminutive right vertebral artery appears patent. Lung apices appear clear. Unremarkable soft tissues. Levoscoliosis of the cervical spine. Multilevel degenerative changes of the spine. IMPRESSION: 1. Atherosclerosis of the carotid bulbs without stenosis. 2. High-grade stenosis at the origin of the left vertebral artery. ACT 112: Negative or not required by law. The above report was generated using voice recognition software. It may contain grammatical, syntax o r spelling errors. Electronically signed by: Etienne Coronado M.D. 02/22/2025 12:13 PM
--- NOTE | 2025-02-22 12:19 | CT Scan Report ---
CT angio head wo/w CLINICAL HISTORY: Stroke: 24hrs rt face, slurred speech, confusion COMPARISON STUDY: Head CT, CTA of the head and MRI of the brain January 08, 2020. TECHNIQUE: Unenhanced and arterial phase imaging of the head was performed. Intravenous injection of 118 cc Optiray 320 IV was uneventful. Sagittal and coronal reformats were viewed as well as maximal i ntensity projections on an independent 3-D workstation. A dose lowering technique was utilized adheri ng to the principles of ALARA. FINDINGS: No acute intracranial hemorrhage, midline shift or mass effect is present. Ventricular syst em is unremarkable. The basal cisterns are patent. There are no axial collections. A 1.3 cm hypodensi ty within the left internal capsule on image 13 of 28 is new since prior CT. This may extend into the anterior aspect of the left thalamus. Hypodensities within the left lentiform nucleus correspond to the infarcts shown on MRI of January 08, 2020. No intracranial aneurysm is identified. There is severe st enosis of the anterior left M2 segment shown on image 98 of 251 which is new since exam of January 07 20. There are are moderate to severe stenoses within several additional smaller left sylvian branches . Left vertebral artery is dominant. Basilar artery is patent. There is persistence of the right posterior cerebral artery. There is moderate narrowing of the proximal right P2 segment. There is severe narrowing versus short segment occlusion with distal trang nstitution of the right P2 3 segment shown on image 97. This is new since prior exam. There are moder ate stenoses within the left posterior cerebral artery. IMPRESSION: 1. No acute intracranial hemorrhage. 2. 1.3 cm hypodensity within the left internal capsule which is new since prior head CT. This may rep resent an acute infarct. 3. 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 4. Severe stenosis versus short segment occlusion of the right P3 segment. Moderate stenosis within t he left posterior cerebral artery. 5. Moderate to severe stenoses within several left sylvian branches, including a proximal left M2 seg ment. ACT 112: Negative or not required by law. Electronically signed by: Nash Deleon M.D. 02/22/2025 12:17 PM
[2025-02-22] MEDS: CLOPIDOGREL BISULFATE 75 MG TAB PO ONE (13:03)
--- NOTE | 2025-02-22 13:04 | History & Physical Report ---
Date of Service February 22, 2025 Assessment & Plan (1) GERD (gastroesophageal reflux disease): (2) Osteoarthritis: (3) CVA (cerebral vascular accident): (4) Vertebral artery stenosis: Plan The patient is a 79-year-old female who presents to the ED on 02/22/25 with complaints of slurred speech, trouble word finding and intermittent confusion x 24 hours. Found to have acute CVA. Acute CVA L thalamus Noted on CT head, history of stroke with similar symptoms 5 years ago with no chronic deficits Allergic to aspirin, neurology recommending Plavix, will allow permissive hypertension Check head MRI/echo, telemetry monitoring, neuro-consult for further recs, PT/OT Severe stenosis versus occlusion of right P3 segment High-grade stenosis of left vertebral artery Moderate stenosis of L posterior cerebral artery Severe stenosis of the left sylvian branches Noted on head/neck CTA, per neuro, no indication for acute intervention Await further recommendations, may need outpatient follow-up with vascular surgery Hypertension - with no prior hx: SBP is elevated on arrival, no prior history of HTN Allow permissive hypertension x 24 hours May need to be discharged on oral blood pressure medication, can consider lisinopril/losartan Would like to avoid amlodipine with bilateral lower extremity edema A total of 60 minutes was spent on chart review/reviewing diagnostic data/discussion with consultants/facilitating plan of care Full code DVT prophylaxis: Lovenox History of Present Illness Chief Complaint: Slurred speech, trouble word finding Primary Care Provider: Frank Pittman MD The patient is a 79-year-old female with past medical history of GERD, CVA5 years ago, 2019 who presents to the ED on 02/22/2025 with complaints of slurred speech, trouble word finding and intermittent confusion over the past 24 hours. The patient's son is at the bedside and reports her symptoms started intermittently yesterday since 11 AM. Reported noting a little bit of confusion and intermittent trouble speaking. No weakness was noted. Patient did have a stroke about 5 years ago and the family reports no deficits from that stroke but having a similar presentation to this stroke with word finding issues and slurred speech which is why the son was concerned and called 911. The patient lives at home with family and usually has no issues getting around. On exam, the patient denies any complaints. She denies any recent respiratory viruses. She denies any chest pain or shortness of breath. Denies any nausea/vomiting/diarrhea. Able to answer most questions appropriately but intermittently forgetful. No slurred speech on my exam. No further neurodeficits on my exam. Still some trouble with word finding intermittently. The patient reports being directed to take aspirin in the past after her last stroke but had an allergic reaction of lip swelling to this so she is not currently on any antiplatelet medications. On arrival to the ED, the patient's blood pressure is elevated to 170s systolically her labs are fairly unremarkable. BNP 163, glucose 120, CO2 23 Chest x-ray showed mild CHF Head CTA: 1. No acute intracranial hemorrhage. 2. 1.3 cm hypodensity within the left internal capsule which is new since prior head CT. This may represent an acute infarct. 3. 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 4. Severe stenosis versus short segment occlusion of the right P3 segment. Moderate stenosis within the left posterior cerebral artery. 5. Moderate to severe stenoses within several left sylvian branches, including a proximal left M2 segment. Neck CTA: 1. Atherosclerosis of the carotid bulbs without stenosis. 2. High-grade stenosis at the origin of the left vertebral artery. Stroke alert was called, neurology recommending Plavix daily. No current indication for vascular intervention. The patient will be admitted for further workup for acute stroke Allergies Allergy/AdvReac Type Severity Reaction Status Date / Time aspirin Allergy Intermediate LIPS SWELL Verified 02/22/25 13:03 naphazoline Allergy Intermediate Lip Verified 02/22/25 13:03 swelling with "decongestants" perfume Allergy Intermediate [place]/Any Unverified 02/22/25 13:03 Fragrance - Difficulty Breathing phenylephrine Allergy Intermediate Lip Verified 02/22/25 13:03 swelling with "decongestants" pollen extracts Allergy Intermediate Nasal Unverified 02/22/25 13:03 Discharge pseudoephedrine Allergy Intermediate Lip Verified 02/22/25 13:03 swelling with "decongestants" tree and shrub pollen Allergy Intermediate Nasal Unverified 02/22/25 13:03 Discharge silver Allergy Mild Rash Verified 02/22/25 13:03 Home Medications Medication Instructions Recorded Confirmed Type psyllium husk 3.4 gram/5.4 gram 1 tbsp PO QAM 02/18/20 02/22/25 History oral powder (Metamucil) simethicone 125 mg chewable tablet 125 mg PO HS 02/18/20 02/22/25 History (Gas-X Extra Strength) omeprazole 20 mg capsule,delayed 20 mg PO DAILYBB 02/22/25 02/22/25 History release Past Med/Surg History Problem List (Updated 02/22/25 @ 13:00 by DANIEL Medina) Vertebral artery stenosis GERD (gastroesophageal reflux disease) (Chronic) Osteoarthritis Elevated troponin (Acute) Stroke-like symptoms Hypertensive emergency CVA (cerebral vascular accident) Hypokalemia Encounter for pre-operative examination Medical History Borderline high cholesterol Cardiac murmur MILD--follows with PCP Diverticulitis HX GERD (gastroesophageal reflux disease) Hiatal hernia History of colon polyps History of stroke DECEMBER 2019 - RESIDUAL EFFECT: ONCE IN A WHILE SPEECH SLURRED AND THERAPY FOR WRITING Macular degeneration 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 Morbid obesity with BMI of 40.0-44.9, adult Surgical History H/O cervical spine surgery BONE CHIP REMOVAL History of anesthesia reaction SLOW TO WAKE UP History of bilateral cataract extraction History of bilateral tubal ligation History of cholecystectomy History of colonoscopy History of esophagogastroduodenoscopy (EGD) History of tooth extraction Family History Father No problems noted. Mother Family history of diabetes mellitus Other No family history of adverse response to anesthesia Social History Smoking Status: Never smoker Second Hand Exposure: No; Do You Dip or Chew Tobacco: No; Hx Alcohol Use: Yes ("one a year") Hx Substance Use: No Preferred Language: Maori Communication Ability: Effective Optometry Assistant Required: No Beliefs That Will Affect Care: None Current Living Situation: Spouse and Family Current Living Situation Comment: Lives with and son Feels Safe at Home: Yes Assistive Devices: Denture - Upper, Denture - Lower and Glasses Review of Systems Review of Systems: All systems reviewed & are unremarkable except as noted in HPI & below Physical Exam Constitutional: WD/WN, vitals as above Eyes: PERRL, conjunctivae normal, anicteric sclerae ENMT: external ear and nose normal, oropharynx normal Neck: trachea midline, no thyromegaly Respiratory: normal respiratory effort, lungs clear to auscultation Cardiovascular: RRR, no murmur, no edema (+2 bilateral nonpitting edema) Gastrointestinal (Abdomen): normal bowel sounds, soft, nontender, no hepatosplenomegaly Musculoskeletal: no cyanosis or clubbing, extremities motor strength 5/5 Skin: no rashes, warm and dry Neurologic: PERRL, EOMI, accommodation nl, no face palsy, no dysarthria (trouble word finding and int confusion noted) Psychiatric: A+Ox3, euthymic affect Lymphatic: no cervical or axillary lymphadenopathy Results & Data Results & Data Vital Signs (Past 12 Hours) Vital Signs Temp Pulse Resp BP Pulse Ox O2 Del Method 02/22/25 12:42 73 24 169/102 H 96 02/22/25 12:27 75 02/22/25 11:15 36.3 C L 79 16 170/76 H 95 Room Air Diagnostic Findings Laboratory Results WBC 9.19 K/ul (4.8-10.8) 02/22/25 11:23 RBC 5.37 M/uL (4.20-5.40) 02/22/25 11:23 Hgb 14.7 g/dl (12.0-16.0) 02/22/25 11:23 POC Hgb 15.6 g/dl (12.0-16.0) 02/22/25 11:26 Hct 46.5 % (37.0-47.0) 02/22/25 11:23 POC Hct 46 % (37-47) 02/22/25 11:26 MCV 86.6 fL (80.0-100.0) 02/22/25 11:23 MCH 27.4 pg (25.0-34.0) 02/22/25 11:23 MCHC 31.6 g/dL (32.0-36.0) L 02/22/25 11:23 RDW Std Deviation 46.9 fL (36.4-46.3) H 02/22/25 11:23 RDW Coeff of Rishabh 15.0 % (11.5-14.5) H 02/22/25 11:23 Plt Count 229 K/uL (130-400) 02/22/25 11:23 MPV 10.9 fL (9.4-12.4) 02/22/25 11:23 Immature Gran % (Auto) 0.4 % 02/22/25 11:23 Neut % (Auto) 68.3 % 02/22/25 11:23 Lymph % (Auto) 23.5 % 02/22/25 11:23 Glynn % (Auto) 6.5 % 02/22/25 11:23 Eos % (Auto) 0.9 % 02/22/25 11:23 Baso % (Auto) 0.4 % 02/22/25 11:23 Neut # (Auto) 6.27 K/uL (1.40-6.50) 02/22/25 11:23 Lymph # (Auto) 2.16 K/uL (1.20-3.40) 02/22/25 11:23 Glynn # (Auto) 0.60 K/uL (0.11-0.59) H 02/22/25 11:23 Eos # (Auto) 0.08 K/uL (0.00-0.50) 02/22/25 11:23 Baso # (Auto) 0.04 K/uL (0.00-0.20) 02/22/25 11:23 Immature Gran # (Auto) 0.04 K/uL (0.01-0.20) 02/22/25 11:23 PT 11.4 Seconds (9.0-12.0) 02/22/25 11:23 INR 1.1 (0.9-1.1) 02/22/25 11:23 POC Sodium 144 mmol/L (135-144) 02/22/25 11:26 Sodium 142 mmol/L (136-145) 02/22/25 11:23 POC Potassium 4.0 mmol/L (3.3-5.0) 02/22/25 11:26 Potassium 3.9 mmol/L (3.5-5.1) 02/22/25 11:23 POC Chloride 108 mmol/L (101-112) 02/22/25 11:26 Chloride 107 mmol/L (98-107) 02/22/25 11:23 Carbon Dioxide 25 mmol/L (21-32) 02/22/25 11:23 POC Total CO2 23 mmol/L (24-31) L 02/22/25 11:26 Anion Gap 10 (3-11) 02/22/25 11:23 POC Anion Gap 18.0 mmol/L (16-25) 02/22/25 11:26 POC BUN 18 mg/dl (7-18) 02/22/25 11:26 BUN 18 mg/dl (6-23) 02/22/25 11:23 Creatinine 1.12 mg/dl (0.6-1.2) 02/22/25 11:23 POC Creatinine 1.2 mg/dl (0.6-1.3) 02/22/25 11:26 Est Cr Clr Drug Dosing Not Reportable 02/22/25 11:23 eGFR 50.33 02/22/25 11:23 BUN/Creatinine Ratio 16.1 (10-20) 02/22/25 11:23 Glucose 120 mg/dl (70-99(Fasting)) H 02/22/25 11:23 POC Glucose (other) 116 mg/dl (70-99) H 02/22/25 11:26 Calcium 9.5 mg/dl (8.6-10.3) 02/22/25 11:23 POC Ioniz Calcium Nicki 1.13 mmol/l (1.12-1.32) 02/22/25 11:26 Magnesium 2.0 mg/dl (1.7-2.4) 02/22/25 11:23 Total Bilirubin 0.5 mg/dl (0.2-1.0) 02/22/25 11:23 Direct Bilirubin 0.1 mg/dl (0-0.2) 02/22/25 11:23 AST 16 U/L (13-39) 02/22/25 11:23 ALT 11 U/L (7-52) 02/22/25 11:23 Alkaline Phosphatase 84 U/L (34-104) 02/22/25 11:23 Troponin I High Sens 6.0 pg/ml (0-14) 02/22/25 11:23 Total Protein 8.0 gm/dl (6.0-8.3) 02/22/25 11:23 Albumin 4.1 gm/dl (3.4-5.0) 02/22/25 11:23 TSH 2.107 uIu/ml (0.300-4.500) 02/22/25 11:23 Impressions Head CTA 02/22/25 11:24 CT angio head wo/w CLINICAL HISTORY: Stroke: 24hrs rt face, slurred speech, confusion COMPARISON STUDY: Head CT, CTA of the head and MRI of the brain January 08, 2020. TECHNIQUE: Unenhanced and arterial phase imaging of the head was performed. Intravenous injection of 118 cc Optiray 320 IV was uneventful. Sagittal and coronal reformats were viewed as well as maximal intensity projections on an independent 3-D workstation. A dose lowering technique was utilized adhering to the principles of ALARA. FINDINGS: No acute intracranial hemorrhage, midline shift or mass effect is present. Ventricular system is unremarkable. The basal cisterns are patent. There are no axial collections. A 1.3 cm hypodensity within the left internal capsule on image 13 of 28 is new since prior CT. This may extend into the anterior aspect of the left thalamus. Hypodensities within the left lentiform nucleus correspond to the infarcts shown on MRI of January 08, 2020. No intracranial aneurysm is identified. There is severe stenosis of the anterior left M2 segment shown on image 98 of 251 which is new since exam of January 08, 2020. There are are moderate to severe stenoses within several additional smaller left sylvian branches. Left vertebral artery is dominant. Basilar artery is patent. There is persistence of the right posterior cerebral artery. There is moderate narrowing of the proximal right P2 segment. There is severe narrowing versus short segment occlusion with distal reconstitution of the right P2 3 segment shown on image 97. This is new since prior exam. There are moderate stenoses within the left posterior cerebral artery. IMPRESSION: 1. No acute intracranial hemorrhage. 2. 1.3 cm hypodensity within the left internal capsule which is new since prior head CT. This may represent an acute infarct. 3. 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 4. Severe stenosis versus short segment occlusion of the right P3 segment. Moderate stenosis within the left posterior cerebral artery. 5. Moderate to severe stenoses within several left sylvian branches, including a proximal left M2 segment. ACT 112: Negative or not required by law. Electronically signed by: Nash Deleon M.D. 02/22/2025 12:17 PM Neck CTA 02/22/25 11:24 CT angio neck with con CLINICAL HISTORY: 79 years-old Female with stroke. Acute stroke like symptoms COMPARISON STUDY: CTA neck neck 01/08/2020 TECHNIQUE: Following the IV administration of 118 mL of Optiray, CT angiogram of the neck was performed from the aortic arch to the skull base. Images are reviewed in the axial, sagittal, and coronal planes. 3-D MIPS images are created and assessed. IV contrast was administered without complication. All measurements were calculated based on NASCET criteria. A dose lowering technique was utilized adhering to the principles of ALARA. FINDINGS: Mild dilation of the main pulmonary artery may represent pulmonary arterial hypertension. Moderate atherosclerosis of the aorta with moderate stenosis at the origin left subclavian artery. The common carotid arteries are patent bilate rally. Atherosclerotic plaque of the carotid bulbs bilaterally causes less than 50% stenosis. Dominant left vertebral artery. There is tortuosity with high- grade stenosis at the origin of left vertebral artery, image 144 series 7 which is new from prior. Developmentally diminutive right vertebral artery appears patent. Lung apices appear clear. Unremarkable soft tissues. Levoscoliosis of the cer vical spine. Multilevel degenerative changes of the spine. IMPRESSION: 1. Atherosclerosis of the carotid bulbs without stenosis. 2. High-grade stenosis at the origin of the left vertebral artery. ACT 112: Negative or not required by law. The above report was generated using voice recognition software. It may contain grammatical, syntax or spelling errors. Electronically signed by: Etienne Coronado M.D. 02/22/2025 12:13 PM Chest X-Ray 02/22/25 11:25 XR chest 1V portable CLINICAL HISTORY: [facility] [place] COMPARISON STUDY: 01/08/2020 FINDINGS: There is stable prominent cardiomegaly with mild pulmonary vascular congestion. Evaluation of the left lung base is limited by the overlying cardiac silhouette. Otherwise no consolidation or pleural effusion seen. No pneumothorax. IMPRESSION: Mild CHF. ACT 112: Negative or not required by law. Electronically signed by: Romie Gutierrez M.D. 02/22/2025 11:38 AM Supervising Physician Co-Signing Physician Notes Attending Addendum: Case reviewed with the advanced practitioner. I have personally performed a history and physical examination on the patient. I have reviewed the advanced practitioner's documentation on the date of service referenced in note, and I agree with, and take responsibility for the plan of care. please refer to her notes for full details patient seen and examined, records reviewed by myself as well patient's son at bedside on exam, patient seen resting in bed, comfortable awake, alert, oriented x 3, answers most questions appropriately still has some confusion denies focal weakness/numbness was able to drink water and take Plavix at the ER with no problems no chest pain, dyspnea, palpitations, dizziness no other symptoms VS noted and reviewed oriented x3, not in distress, speaks in sentences with no effort nor accessory muscle use normal rate, regular rhythm, no murmurs clear breath sounds bilaterally non distended, soft, nontender no bipedal edema, erythema, warmth neuro- alert, oriented x 3; (+) poor recollection of events from yesterday; CN 2-12 grossly intact; motor 5/5 bilaterally;sensation 100% on all extremities; no other gross focal neurologic deficits all labs, imaging noted and reviewed ASSESSMENT AND PLAN> ACUTE CVA LEFT INTERNAL CAPSULE HISTORY OF CVA CTA head and neck: 1. No acute intracranial hemorrhage. 2. 1.3 cm hypodensity within the left internal capsule which is new since prior head CT. This may represent an acute infarct. 3. 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 4. Severe stenosis versus short segment occlusion of the right P3 segment. Moderate stenosis within the left posterior cerebral artery. 5. Moderate to severe stenoses within several left sylvian branches, including a proximal left M2 segment. 1. Atherosclerosis of the carotid bulbs without stenosis. 2. High-grade stenosis at the origin of the left vertebral artery. - Stroke Alert called, tnk not indicated as symptoms started yesterday morning symptoms mostly resolved on exam except for some mild forgetfulness Neurologist recommending to start Plavix (patient stopped ASA a few years ago due to lip swelling) Lipitor 40mg po daily Stroke Order set ordered permissive hypertension, Echo formal Neuro consult CHF PATTERN ON CXR - denies shortness of breath, chest pain echo ordered - other diagnoses and plan of care as per advanced practitioner's notes I spent a total of 45 minutes coordinating, documenting, and providing care for this patient, excluding time spent in the performance of separately billed services or time spent by another provider/QHP. Kelechi Rose MD
[2025-02-22] MEDS ORDERED: PHARMACIST DISCHARGE MED REC CONSULT PRN (14:14)
[2025-02-22] MEDS ORDERED: ACETAMINOPHEN 325 MG TAB PO PRN (14:14)
[2025-02-22] MEDS ORDERED: Patient's HEIGHT &/or WEIGHT Needed STA (14:18)
[2025-02-22 14:45] VITALS: RESP 18
--- NOTE | 2025-02-22 17:42 | Neurology Consultation ---
Date of Consultation February 22, 2025 Assessment & Plan (1) Word finding difficulty: -- Q4 neurochecks -- Toxic/metabolic/infectious work-up in case of recrudescence -- Continue Plavix 75 mg -- Continue Atorvastatin 40 mg daily -- MRI Brain w/o contrast pending -- SBP goal normotension -- TTE, tele, HGbA1c, LDL -- PT/OT, ST -- Continue optimization of stroke risk factors, HgbA1c < 7.0, LDL <70, BP goal <130/80, smoking cessation if applicable, mediterranean diet Plan 79 yo woman w/ h/o stroke 2019 who presents for word finding difficulty x > [address] Head shows known stroke in L IC. CTA shows vertebral stenosis and mild non flow limiting scattered atherosclerotic disease. Patient exam notable for infrequent word finding difficulty. Presentation is concerning for new stroke v possible recrudescence (pt improved completely from prior stroke). Telehealth Consultation Telehealth Information Telehealth Information: I performed this visit using a real-time telehealth connection between my location and the patients location ([facility]). After connecting through interactive tele-video, patient was identified by name and date of and/or wristband check.Patient (or authorized healthcare sales representative cash registers) was informed that this was a telemedicine visit and it was being conducted confidentially over secure lines. My office door was closed and no one else was present in the room with me.Patient (or authorized healthcare sales representative cash registers) provided consent to proceed with the visit, expressed an understanding of privacy and security of the telemedicine visit, and gave permission to have a hospital sales representative cash registers in the room in order to assist with the visit and to conduct portions of the visit, as needed. I informed the patient (or authorized healthcare sales representative cash registers) that I reviewed their record and presented the opportunity for them to ask any questions regarding the visit today. The patient agreed to participate. Time Spent with Patient: Initial => 40 min History of Present Illness Reason for Consultation: Word finding difficulty Requesting Physician: Dr. Garnett Attending Physician: Kelechi Rose MD History of Present Illness Patient is a 79 yo w w/ h/o of L anterior choroidal stroke (2019) who presents for evaluation of word finding difficulty. She states symptoms started yesterday around 11 AM while she was watching t.v. it has seemed to fluctuate somewhat since it started. She states this morning it was worse than before. By time of neurology exam her speech had greatly improved, only notable for infrequent word finding difficulty while naming pictures. She denies having any weakness, numbness or facial droop. No speech changes or headache. She states she was feeling well prior to this no fever, chills etc. She was given plavix in ED as she has not been taking ASA due to side effects. Allergies Allergy/AdvReac Type Severity Reaction Status Date / Time aspirin Allergy Intermediate LIPS SWELL Verified 02/22/25 13:03 naphazoline Allergy Intermediate Lip Verified 02/22/25 13:03 swelling with "decongestants" perfume Allergy Intermediate [place]/Any Unverified 02/22/25 13:03 Fragrance - Difficulty Breathing phenylephrine Allergy Intermediate Lip Verified 02/22/25 13:03 swelling with "decongestants" pollen extracts Allergy Intermediate Nasal Unverified 02/22/25 13:03 Discharge pseudoephedrine Allergy Intermediate Lip Verified 02/22/25 13:03 swelling with "decongestants" tree and shrub pollen Allergy Intermediate Nasal Unverified 02/22/25 13:03 Discharge silver Allergy Mild Rash Verified 02/22/25 13:03 Home Medications Medication Instructions Recorded Confirmed Type psyllium husk 3.4 gram/5.4 gram 1 tbsp PO QAM 02/18/20 02/22/25 History oral powder (Metamucil) simethicone 125 mg chewable tablet 125 mg PO HS 02/18/20 02/22/25 History (Gas-X Extra Strength) omeprazole 20 mg capsule,delayed 20 mg PO DAILYBB 02/22/25 02/22/25 History release Patient History Medical History Borderline high cholesterol Cardiac murmur MILD--follows with PCP Diverticulitis HX GERD (gastroesophageal reflux disease) Hiatal hernia History of colon polyps History of stroke DECEMBER 2019 - RESIDUAL EFFECT: ONCE IN A WHILE SPEECH SLURRED AND THERAPY FOR WRITING Macular degeneration 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 Morbid obesity with BMI of 40.0-44.9, adult Surgical History H/O cervical spine surgery BONE CHIP REMOVAL History of anesthesia reaction SLOW TO WAKE UP History of bilateral cataract extraction History of bilateral tubal ligation History of cholecystectomy History of colonoscopy History of esophagogastroduodenoscopy (EGD) History of tooth extraction Family History Father No problems noted. Mother Family history of diabetes mellitus Other No family history of adverse response to anesthesia Social History Smoking Status: Never smoker Second Hand Exposure: No; Do You Dip or Chew Tobacco: No; Hx Alcohol Use: No Hx Substance Use: No Preferred Language: Iraqi Communication Ability: Effective Labels Molder Required: No Beliefs That Will Affect Care: None Current Living Situation: Spouse Current Living Situation Comment: pt lives/cares for with dementia at home. family assists as well Other Information That Helps Us Care for You: No Feels Safe at Home: Yes Safety Concerns: Feels Safe At This Time Assistive Devices: Denture - Upper and Denture - Lower Review of Systems Negative aside from above Physical Exam Patient awake and alert sitting on side of bed, engaged in exam A&O x 3. Some mild naming difficulty but mostly intact, can at least describe all pictures. Able to follow simple and more complex commands. Pupils symmetric and round and reactive, EOM intact, no facial droop. Able to lift all extremities. No ataxia on finger to nose, good finger tap, toe tap no ataxia. Results & Data Vital Signs (Past 12 Hours) Vital Signs Temp Pulse Pulse Resp BP BP Pulse Ox 02/22/25 15:19 02/22/25 15:18 66 02/22/25 14:32 36.7 C 76 18 168/84 H 96 02/22/25 14:14 02/22/25 13:48 02/22/25 13:29 72 19 165/67 H 96 02/22/25 12:42 86 24 169/102 H 95 02/22/25 12:42 73 24 169/102 H 96 02/22/25 12:27 75 02/22/25 11:15 36.3 C L 79 16 170/76 H 95 Pulse Ox O2 Del Method O2 Del Method 02/22/25 15:19 Room Air 02/22/25 15:18 02/22/25 14:32 Room Air 02/22/25 14:14 96 Room Air 02/22/25 13:48 Room Air 02/22/25 13:29 Room Air 02/22/25 12:42 Room Air 02/22/25 12:42 02/22/25 12:27 02/22/25 11:15 Room Air Diagnostic Findings CT/CTA: L PLIC stroke (likely chornic), scattered atherosclerotic disease, L vertebral stenosis. No flow limiting ICA stenosis.
[2025-02-22 17:55] LABS: Appearance Urine Clear (Clear); Bacteria Urine Automated 2+ (None Seen); Cast Urine Automated 0-2 /lpf (0-2); Epithelial Cell Urine Auto 0-2 /hpf (0-2); Glucose Urine UA Negative (Negative); WBC Urine Automated >50 /hpf (0-5)
[2025-02-22] MEDS: ENOXAPARIN INJ 40 MG/0.4 ML SYR SQ SCH (20:35)
--- NOTE | 2025-02-22 21:28 | Magnetic Resonance Report ---
Exam(s): MRI HEAD Without Contrast EXAM: MR Head Without Intravenous Contrast CLINICAL HISTORY: Stroke. TECHNIQUE: Magnetic resonance images of the head/brain without intravenous contrast in multiple planes. COMPARISON: MRI brain 01/08/2020 FINDINGS: Brain: There is a subacute infarct of the left thalamus measuring 14 x 8 mm. Mild periventricular white matter T2/spinal abnormalities are most consistent with chronic microangiopathy. No intracranial hemorrhage, mass effect or midline shift. Ventricles: Unremarkable. No ventriculomegaly. Bones/joints: No fracture. Sinuses: Unremarkable as visualized. No acute sinusitis. Mastoid air cells: Unremarkable as visualized. No mastoid effusion. Orbits: Unremarkable as visualized. IMPRESSION: There is a subacute infarct of the left thalamus measuring 14 x 8 mm. Communications: Call Doctor Stroke Electronically signed by: Rachel Li MD 02/22/25 21:27 PM
[2025-02-23 03:49] VITALS: O2SAT 94
[2025-02-23 07:23] LABS: Anion Gap 8.0 (3-11); Blood Urea Nitrogen 17.0 mg/dl (6-23); Calcium 8.9 mg/dl (8.6-10.3); Carbon Dioxide 25.0 mmol/L (21-32); Chloride 108.0 mmol/L (98-107); Cholesterol 169.0 mg/dl (0-200); Creatinine Clr Calc Pharmacy 45.6 ml/min; Glucose 107.0 mg/dl (70-99(Fasting)); HDL Cholesterol 32.0 mg/dl; Potassium 3.8 mmol/L (3.5-5.1); Sodium 141.0 mmol/L (136-145); Triglycerides 240.0 mg/dl (0-150)
[2025-02-23 07:24] LABS: Hemoglobin A1C 6.0 % (4.5-5.6)
[2025-02-23] MEDS: ATORVASTATIN 40 MG TAB PO SCH (07:59)
[2025-02-23] MEDS: CLOPIDOGREL BISULFATE 75 MG TAB PO SCH (07:59)
[2025-02-23 08:09] LABS: Hematocrit (blood only) 42.6 % (37.0-47.0); Hemoglobin 13.7 g/dl (12.0-16.0); Immature Granulocytes # (auto) 0.03 K/uL (0.01-0.20); Immature Granulocytes % (auto) 0.4 %; Mean Corpuscular Hemoglobin 27.5 pg (25.0-34.0); Mean Corpuscular Volume 85.4 fL (80.0-100.0); Platelet Count 195 K/uL (130-400); RDW Standard Deviation 46.3 fL (36.4-46.3); Red Blood Count 4.99 M/uL (4.20-5.40); White Blood Count 7.71 K/ul (4.8-10.8)
[2025-02-23 09:12] VITALS: BP 128/77; TEMP 97.9
--- NOTE | 2025-02-23 10:14 | Discharge Summary ---
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 Evaluation in the emergency room showed that there was evidence of a left-sided stroke already on CT imaging. There is also evidence of left posterior cerebral artery stenosis and occlusion. Patient was seen by neurology/telestroke in the ED. Her symptoms are greater than 24 hours and there was no indication for tPA or neurovascular intervention. Patient was referred for routine management of stroke. Patient was cared for in hospital. There was no significant arrhythmias on telemetry monitoring. Echocardiogram was normal ejection fraction and no evidence of PFO. EKG showed sinus rhythm with PACs. Patient's speech was starting to improve. She was started on antiplatelet and statin therapy. The day of discharge vital signs are stable. Discussed with the patient and her family secondary stroke reduction. She will be discharged home to follow-up with her outpatient provider for ongoing management of her chronic issues. Notes For Next Care Provider Consider starting treatment for prediabetes, hemoglobin A1c 6.0% Continue to monitor blood pressure, titrate medications as indicated Continue with secondary stroke prevention Consider outpatient speech therapy Medication Changes From Visit Plavix, Lipitor, lisinopril started for secondary stroke prevention Omeprazole discontinued due to interaction with Plavix Pepcid started for GERD and to replace omeprazole Admission HPI Per Admitting Provider The patient is a 79-year-old female with past medical history of GERD, CVA5 years ago, 2019 who presents to the ED on 02/22/2025 with complaints of slurred speech, trouble word finding and intermittent confusion over the past 24 hours. The patient's son is at the bedside and reports her symptoms started intermittently yesterday since 11 AM. Reported noting a little bit of confusion and intermittent trouble speaking. No weakness was noted. Patient did have a stroke about 5 years ago and the family reports no deficits from that stroke but having a similar presentation to this stroke with word finding issues and slurred speech which is why the son was concerned and called 911. The patient lives at home with family and usually has no issues getting around. On exam, the patient denies any complaints. She denies any recent respiratory viruses. She denies any chest pain or shortness of breath. Denies any nausea/vomiting/diarrhea. Able to answer most questions appropriately but intermittently forgetful. No slurred speech on my exam. No further neurodeficits on my exam. Still some trouble with word finding intermittently. The patient reports being directed to take aspirin in the past after her last stroke but had an allergic reaction of lip swelling to this so she is not currently on any antiplatelet medications. On arrival to the ED, the patient's blood pressure is elevated to 170s systolically her labs are fairly unremarkable. BNP 163, glucose 120, CO2 23 Chest x-ray showed mild CHF Head CTA: 1. No acute intracranial hemorrhage. 2. 1.3 cm hypodensity within the left internal capsule which is new since prior head CT. This may represent an acute infarct. 3. 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 4. Severe stenosis versus short segment occlusion of the right P3 segment. Moderate stenosis within the left posterior cerebral artery. 5. Moderate to severe stenoses within several left sylvian branches, including a proximal left M2 segment. Neck CTA: 1. Atherosclerosis of the carotid bulbs without stenosis. 2. High-grade stenosis at the origin of the left vertebral artery. Stroke alert was called, neurology recommending Plavix daily. No current indication for vascular intervention. The patient will be admitted for further workup for acute stroke Admission Exam Per Admitting Provider See H&P Discharge Exam Constitutional: Alert HEENT: Mucous membranes moist. Lungs: Clear to auscultation, decreased, no wheezes rales or rhonchi CV: S1-S2, regular Abdomen: Soft, nontender, nondistended Extremities: No significant edema Neuro: Some dysarthria/word finding issues NIH stroke score equals 1 Psych: Cooperative, normal mood Updated Medication List Medication Instructions Recorded Confirmed Type psyllium husk 3.4 gram/5.4 gram 1 tbsp PO QAM 02/18/20 02/22/25 History oral powder (Metamucil) simethicone 125 mg chewable tablet 125 mg PO HS 02/18/20 02/22/25 History (Gas-X Extra Strength) omeprazole 20 mg capsule,delayed 20 mg PO DAILYBB 02/22/25 02/22/25 History release atorvastatin 40 mg tablet 40 mg PO QAM #30 tabs 02/23/25 Rx clopidogrel 75 mg tablet 75 mg PO QAM #30 tabs 02/23/25 Rx famotidine 40 mg tablet (Pepcid) 40 mg PO DAILY #30 tabs 02/23/25 Rx lisinopril 5 mg tablet 5 mg PO DAILY #30 tabs 02/23/25 Rx Hospital Stay Data Consultations 02/22/25 12:43 ED Decision to Admit Stat 02/22/25 14:14 Consult Neurology Routine Diagnostic Imagining Performed 02/22/25 11:24 CT angio neck with con Stat CTA head wo/w [CT angio head wo/w] Stat 02/22/25 17:46 MRI Brain [MR brain wo con] Routine Reviewed imaging, laboratory and diagnostic studies. Pertinent findings as below. MRI of the brain confirmed subacute left thalamic infarct echocardiogram showed normal ejection fraction of 55-60%. No significant change from previous. Bubble study had been performed on previous echocardiogram which showed no PFO CBC stable Electrolytes stable Creatinine 1.14 Hemoglobin A1c 6.0% Triglycerides 240 Cholesterol 169 LDL 89 HDL 32 TSH 2.1 Pending Results Patient Have Any Pending Studies at Discharge: No Discharge Instructions Given to Patient (Per Discharging Provider) Discussed with your PCP outpatient speech therapy Discussed with your PCP ongoing risk reduction for future stroke Blood testing indicates that you do have some early diabetes. Discussed with your PCP possibly starting medications for this Stop your omeprazole. This medicine can interfere with the new medication Plavix. I ordered Pepcid for you to take for your stomach. Total Time Total Time Spent Total Time Spent (In Minutes): 36
--- NOTE | 2025-02-23 10:34 | Pharmacy Report ---
- Date of Service February 23, 2025 - Pharmacy CVA/TIA Medication Review Medications to Prevent Stroke handout has been added to the patients discharge packet. Antiplatelet(s) * clopidogrel 75mg PO daily * Note discontinue omeprazole and add famotidine instead Cholesterol * High intensity statin: atorvastatin 40 mg daily DVT Prophylaxis * Enoxaparin SQ Therapeutic Anticoagulation * No history of Afib/Aflutter noted Type 2 Diabetes * Patient does not have T2DM
[2025-02-23 11:39] VITALS: PULSE 67
[2025-02-23] MEDS: STROKE PATIENT DISCHARGE STA (12:56)
--- NOTE | 2025-02-25 06:12 | Electrocardiogram Report ---
Test Reason : Blood Pressure : */* mmHG Vent. Rate : 68 BPM Atrial Rate : 72 BPM P-R Int : 148 ms QRS Dur : 92 ms QT Int : 430 ms P-R-T Axes : 56 32 99 degrees QTcB Int : 458 ms Sinus rhythm with Premature supraventricular complexes Abnormal ECG When compared with ECG of 17-Sep-2022 05:45, Premature supraventricular complexes are now Present Nonspecific T wave abnormality now evident in Inferior leads Nonspecific T wave abnormality now evident in Anterolateral leads Confirmed by Pancho Braden ([id number]) on 02/25/2025 6:12:00 AM Referred By: REFERRED SELF Confirmed By: Pancho Braden
--- NOTE | 2025-02-25 15:19 | Pharmacy Report ---
Pharmacist Stroke Counseling - Date of Service February 25, 2025 - Scope: Pharmacy has been consulted to provide medication discharge counseling for this patient admitted with ischemic stroke as per the Pharmacist Discharge Counseling for Stroke Patients Protocol. - Medications on Discharge: Home Medications Medication Instructions Recorded Confirmed psyllium husk 3.4 gram/5.4 gram 1 tbsp PO QAM 02/18/20 02/22/25 oral powder (Metamucil) simethicone 125 mg chewable tablet 125 mg PO HS 02/18/20 02/22/25 (Gas-X Extra Strength) New Rx's Medication Instructions Recorded atorvastatin 40 mg tablet 40 mg PO QAM #30 tabs 02/23/25 clopidogrel 75 mg tablet 75 mg PO QAM #30 tabs 02/23/25 famotidine 40 mg tablet (Pepcid) 40 mg PO DAILY #30 tabs 02/23/25 lisinopril 5 mg tablet 5 mg PO DAILY #30 tabs 02/23/25 - Action: The above medications, specifically ones for stroke treatment/prophylaxis, have been reviewed in detail with the patient after discharge. This includes indication, common adverse reactions, drug interactions, and medication administration. Medication counseling has been employed using the teach-back method to ensure understanding. - Outcome: The patient has demonstrated understanding of the medications. She discontinued omeprazole and started famotidine. She was questioning if she would need to take these medications the rest of her life. I advised her to discuss duration of treatment with her provider at her follow up PCP and neurology appointments, which she said she will. Thank you for allowing pharmacy to be involved in the care of this patient. Please call [phone] with any additional questions
== END 2025-02-23 12:56 | disposition home or self-care (01) | DRG 66 ==
LOC: ED 11:11 → 2E 12:57 → SUATTDRO 12:57 → 2E 13:48

== ENCOUNTER 2025-05-20 17:34 | Inpatient (IN) ==
--- NOTE | 2025-05-20 17:54 | Emergency Department Note ---
Impression & Plan Weakness, Kidney stone on left side ED Provider Note Provider: Jonel Brown MD CHIEF COMPLAINT: Weakness HISTORY OF PRESENT ILLNESS: Patient is a 79-year-old female history of CVA, GERD, hypertension presenting here today after a fall. Patient states has been generally weak just today. Was well yesterday. Evidently did Myclo-Derm last night. Denies sick contact. Denies significant congestion or sore throat or difficulty breathing. Denies chest pain. Denies to me nausea or vomiting. Nursing states patient did report she had some nausea and vomiting to them. Evidently per EMS the patient slipped and fell in diarrhea to the ground and landed on her buttock. She denies striking her head or head or neck pain. Denies any numbness or tingling. She is on Plavix with a history of CVA in the past. For comfort was placed on some oxygen by EMS but is not noted to be hypoxic. PAST MEDICAL HISTORY: As noted above MEDICATIONS: Reviewed home medication list SOCIAL HISTORY: PHYSICAL EXAM: GENERAL: alert and oriented on stretcher mildly tachypneic. Head: normocephalic and atraumatic EYES: No injection, discharge or icterus. PERRL, EOMI. NECK: Trachea midline. Supple without posterior midline tenderness ENT: Mucous membranes pink and moist. Pharynx without erythema or exudate. LUNGS: Airway patent. No retractions. Breath sounds clear with mild tachypnea HEART: Regular rate and rhythm. No chest wall tenderness ABDOMEN: Soft and non-tender, without guarding or rebound. Stable pelvis. No flank tenderness or SI joint tenderness. SKIN: Acyanotic, warm, dry, without rashes EXTREMITIES: Without swelling, tenderness or deformity NEUROLOGICAL: No focal deficits. No aphasia. No facial droop or slurred speech. Normal strength and tone in the extremities. Sensation to gross touch normal. EK bpm sinus rhythm with some slight baseline artifact. No acute ST segment elevation or depression with some T wave flattening. QTc 404. CONTINUOUS CARDIAC MONITORING: was ordered and showed a heart rate of 80s to 90s bpm in sinus rhythm GCS 15. Patient's laboratory studies and imaging reviewed. Differential includes traumatic injury including bleeding, fracture/dislocation, as well as infection, dehydration, metabolic abnormality, hypo/hyperglycemia, electrolyte disturbance, anemia, hypoxia, cardiac sources, intracerebral event, toxicologic, neurologic, as well as other pathologies. IMPRESSION/MEDICAL DECISION MAKING: Patient mildly tachypneic but vitals not significantly abnormal. She only reports to me that she fell and feels generally ill and weak. History is poor from her however. Reports nursing maybe some nausea vomiting had an episode of nonbloody diarrhea at home and she evidently slipped and fell onto her buttock on. Denies significant pain or traumatic injury. Good range of motion. Given use of Plavix however in the questionable history here we will complete CT salter scans as well as blood work and cultures. Respiratory viral panel was ordered. Blood work returns with leukocytosis of 22.3. No anemia. No severe electrolyte abnormalities however creatinine elevated 1.6 today. 2 L of IV fluid ordered. Procalcitonin 0.43. CK and troponin are both not elevated. Given concerns for infection cover broadly with cefepime here empirically. Prior distant UTI pansensitive E. coli noted in the summer in history. Patient does not seem acutely meningitic and does not have any neck rigidity. Quick review of imaging is major concern for possible left-sided kidney stone the patient not having significant pain. Mckeon placed for urine sample to see if this is infected. CT head per radiology no acute intracranial bleed noted. CT cervical spine per radiology no acute cervical spine fracture noted. CT chest abdomen pelvis per radiology without evidence of PE or pneumonia. There is evidence of left-sided hydronephrosis and kidney stone approximately 1.1 cm in size. Mild enhancement and hypoenhancement questioning possible ureteritis and infection. Urinalysis returns from straight cath with findings of infection fairly obvious. Reached out and discussed with urology on-call Dr. Grace. Reviewed the case and her laboratory findings. Patient and son were updated at bedside as well. Will plan for admission and urology evaluate in the morning for stent placement unless the patient declines and declares a full sepsis picture. DIAGNOSIS: Weakness, left-sided kidney stone, UTI DISPOSITION: Hospitalist will evaluate Patient as well as her son were agreeable with this plan. 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 Cerebrovascular accident (CVA) of left thalamus Word finding difficulty Vertebral artery stenosis GERD (gastroesophageal reflux disease) (Chronic) Osteoarthritis Elevated troponin (Acute) Stroke-like symptoms Hypertensive emergency CVA (cerebral vascular accident) (Acute) Hypokalemia Encounter for pre-operative examination Medical History Borderline high cholesterol Cardiac murmur MILD--follows with PCP Diverticulitis HX GERD (gastroesophageal reflux disease) Hiatal hernia History of colon polyps History of stroke DECEMBER 2019 - RESIDUAL EFFECT: ONCE IN A WHILE SPEECH SLURRED AND THERAPY FOR WRITING Macular degeneration 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 Morbid obesity with BMI of 40.0-44.9, adult Surgical History H/O cervical spine surgery BONE CHIP REMOVAL History of anesthesia reaction SLOW TO WAKE UP History of bilateral cataract extraction History of bilateral tubal ligation History of cholecystectomy History of colonoscopy History of esophagogastroduodenoscopy (EGD) History of tooth extraction Family History Father No problems noted. Mother Family history of diabetes mellitus Other No family history of adverse response to anesthesia Social History Smoking Status: Never smoker Second Hand Exposure: No; Do You Dip or Chew Tobacco: No; Hx Alcohol Use: No Hx Substance Use: No Preferred Language: Tajik Communication Ability: Effective Park Naturalist Required: No Beliefs That Will Affect Care: None Current Living Situation: Spouse Current Living Situation Comment: pt lives/cares for with dementia at home. family assists as well Feels Safe at Home: Yes Assistive Devices: Denture - Upper and Denture - Lower Allergies Allergies Allergy/AdvReac Type Severity Reaction Status Date / Time aspirin Allergy Intermediate LIPS SWELL Verified 02/22/25 13:03 naphazoline Allergy Intermediate Lip Verified 02/22/25 13:03 swelling with "decongestants" perfume Allergy Intermediate [place]/Any Unverified 02/22/25 13:03 Fragrance - Difficulty Breathing phenylephrine Allergy Intermediate Lip Verified 02/22/25 13:03 swelling with "decongestants" pollen extracts Allergy Intermediate Nasal Unverified 02/22/25 13:03 Discharge pseudoephedrine Allergy Intermediate Lip Verified 02/22/25 13:03 swelling with "decongestants" tree and shrub pollen Allergy Intermediate Nasal Unverified 02/22/25 13:03 Discharge silver Allergy Mild Rash Verified 02/22/25 13:03 Home Meds Home Medications Medication Instructions Recorded Confirmed famotidine 40 mg tablet (Pepcid) 40 mg PO QAM 05/20/25 05/20/25 lisinopril 5 mg tablet 5 mg PO QAM 05/20/25 05/20/25 Previous Rx's Medication Instructions Recorded atorvastatin 40 mg tablet 40 mg PO QAM #30 tabs 02/23/25 clopidogrel 75 mg tablet 75 mg PO QAM #30 tabs 02/23/25 Results & Data (ED) Vital Signs Vital Signs - 24 hr 05/20/25 17:52 05/20/25 17:52 05/20/25 17:52 Temperature 36.8 C Temperature Source Oral Pulse Rate 91 H 91 H Pulse Rate [Apical] 91 H Respiratory Rate 16 22 22 Respiratory Effort / Characteristics Spontaneous Short of Breath Spontaneous Short of Breath Blood Pressure 138/77 Blood Pressure [Right Arm] 138/77 Blood Pressure Mean 97 Blood Pressure Mean [Right Arm] 97 Pulse Oximetry 95 95 95 Oxygen Delivery Method Nasal Cannula Nasal Cannula Nasal Cannula Oxygen Flow Rate 2 2 2 Sepsis Recent Fever Within 48 Hours No Sepsis New/Unexplained Change in Mental Status No Sepsis Action Taken by Nursing No Action Required 05/20/25 18:26 05/20/25 18:51 05/20/25 19:00 Temperature Temperature Source Pulse Rate 81 Pulse Rate [Apical] 91 H 91 H Respiratory Rate 16 16 Respiratory Effort / Characteristics Spontaneous Short of Breath Blood Pressure Blood Pressure [Right Arm] 150/108 H 154/74 H Blood Pressure Mean Blood Pressure Mean [Right Arm] 122 100 Pulse Oximetry 98 98 Oxygen Delivery Method Nasal Cannula Nasal Cannula Oxygen Flow Rate 2 2 Sepsis Recent Fever Within 48 Hours Sepsis New/Unexplained Change in Mental Status Sepsis Action Taken by Nursing 05/20/25 20:00 05/20/25 20:00 05/20/25 21:00 Temperature Temperature Source Pulse Rate Pulse Rate [Apical] 94 H 97 H 106 H Respiratory Rate 16 16 16 Respiratory Effort / Characteristics Blood Pressure Blood Pressure [Right Arm] 148/99 H 148/99 H 106/82 Blood Pressure Mean Blood Pressure Mean [Right Arm] 115 115 90 Pulse Oximetry 96 96 Oxygen Delivery Method Nasal Cannula Nasal Cannula Oxygen Flow Rate 2 2 Sepsis Recent Fever Within 48 Hours Sepsis New/Unexplained Change in Mental Status Sepsis Action Taken by Nursing 05/20/25 22:32 Temperature Temperature Source Pulse Rate 97 H Pulse Rate [Apical] Respiratory Rate Respiratory Effort / Characteristics Blood Pressure Blood Pressure [Right Arm] Blood Pressure Mean Blood Pressure Mean [Right Arm] Pulse Oximetry Oxygen Delivery Method Oxygen Flow Rate Sepsis Recent Fever Within 48 Hours Sepsis New/Unexplained Change in Mental Status Sepsis Action Taken by Nursing Laboratory Data 05/20/25 17:16 05/20/25 17:16 Lab Results 05/20/25 05/20/25 05/20/25 Range/Units 17:16 17:53 18:04 WBC 22.33 H (4.8-10.8) K/ul RBC 5.10 (4.20-5.40) M/uL Hgb 14.3 (12.0-16.0) g/dl POC Hgb 15.3 (12.0-16.0) g/dl Hct 44.8 (37.0-47.0) % POC Hct 45 (37-47) % MCV 87.8 (80.0-100.0) fL MCH 28.0 (25.0-34.0) pg MCHC 31.9 L (32.0-36.0) g/dL RDW Std Deviation 45.9 (36.4-46.3) fL RDW Coeff of Rishabh 14.2 (11.5-14.5) % Plt Count 239 (130-400) K/uL MPV 10.5 (9.4-12.4) fL Immature Gran % (Auto) 0.9 % Neut % (Auto) 86.6 % Lymph % (Auto) 3.7 % [place] % (Auto) 8.6 % Eos % (Auto) 0.0 % Baso % (Auto) 0.2 % Neut # (Auto) 19.31 H (1.40-6.50) K/uL Lymph # (Auto) 0.83 L (1.20-3.40) K/uL [place] # (Auto) 1.93 H (0.11-0.59) K/uL Eos # (Auto) 0.00 (0.00-0.50) K/uL Baso # (Auto) 0.05 (0.00-0.20) K/uL Immature Gran # (Auto) 0.21 H (0.01-0.20) K/uL PT Cancelled INR Cancelled POC Sodium 136 (135-144) mmol/L Sodium 135 L (136-145) mmol/L POC Potassium 4.7 (3.3-5.0) mmol/L Potassium 4.1 (3.5-5.1) mmol/L POC Chloride 104 (101-112) mmol/L Chloride 101 (98-107) mmol/L Carbon Dioxide 23 (21-32) mmol/L POC Total CO2 22 L (24-31) mmol/L Anion Gap 11 (3-11) POC Anion Gap 16.0 (16-25) mmol/L POC BUN 25 H (7-18) mg/dl BUN 20 (6-23) mg/dl Creatinine 1.60 H (0.6-1.2) mg/dl POC Creatinine 1.6 H (0.6-1.3) mg/dl Est Cr Clr Drug Dosing Not Reportable eGFR 32.81 BUN/Creatinine Ratio 12.5 (10-20) Glucose 157 H (70-99(Fasting)) mg/dl POC Glucose (other) 154 H (70-99) mg/dl Lactate (0.4-2.0) mmol/L Calcium 9.4 (8.6-10.3) mg/dl POC Ioniz Calcium Nicki 1.09 L (1.12-1.32) mmol/l Magnesium 1.9 (1.7-2.4) mg/dl Total Bilirubin 1.1 H (0.2-1.0) mg/dl AST 14 (13-39) U/L ALT 9 (7-52) U/L Alkaline Phosphatase 81 (34-104) U/L Total Creatine Kinase 52 (26-192) U/L Troponin I High Sens 13.8 (0-14) pg/ml Total Protein 7.6 (6.0-8.3) gm/dl Albumin 3.8 (3.4-5.0) gm/dl Globulin 3.8 (2.5-4.0) gm/dl Albumin/Globulin Ratio 1.0 (0.9-2) Procalcitonin 0.43 (0-0.5) ng/ml TSH 2.698 (0.300-4.500) uIu/ml Urine Color Urine Appearance (Clear) Urine pH (4.5-7.5) Ur Specific [place] (1.000-1.030) Urine Protein (Negative) Urine Glucose (UA) (Negative) Urine Ketones (Negative) Urine Blood (Negative) Urine Nitrite (Negative) Urine Bilirubin (Negative) Urine Urobilinogen (Negative) Ur Leukocyte Esterase (Negative) Urine WBC (Auto) (0-5) /hpf Urine RBC (Auto) (0-2) /hpf U Hyaline Cast (Auto) (0-2) /lpf U Epithel Cells (Auto) (0-2) /hpf Urine Bacteria (Auto) (None Seen) Urine Comment Adenovirus (PCR) Not Detected (NotDetected) B. pertussis DNA (PCR) Not Detected (NotDetected) B.parapertussis DNA PCR Not Detected (NotDetected) C. pneumoniae DNA (PCR) Not Detected (NotDetected) Coronavirus OC43 (PCR) Not Detected (NotDetected) Coronavirus HKU1 (PCR) Not Detected (NotDetected) Coronavirus 229E (PCR) Not Detected (NotDetected) SARS-CoV-2 (PCR) Not Detected (NotDetected) Coronavirus NL63 (PCR) Not Detected (NotDetected) Human Metapneumovir PCR Not Detected (NotDetected) Influenza Type A (PCR) Not Detected (NotDetected) Influenza Type B (PCR) Not Detected (NotDetected) M. pneumoniae (PCR) Not Detected (NotDetected) Parainfluenza 1 (PCR) Not Detected (NotDetected) Parainfluenza 2 (PCR) Not Detected (NotDetected) Parainfluenza 3 (PCR) Not Detected (NotDetected) Parainfluenza 4 (PCR) Not Detected (NotDetected) RSV (PCR) Not Detected (NotDetected) Entero/Rhino (PCR) Not Detected (NotDetected) 05/20/25 05/20/25 Range/Units 18:56 19:25 WBC (4.8-10.8) K/ul RBC (4.20-5.40) M/uL Hgb (12.0-16.0) g/dl POC Hgb (12.0-16.0) g/dl Hct (37.0-47.0) % POC Hct (37-47) % MCV (80.0-100.0) fL MCH (25.0-34.0) pg MCHC (32.0-36.0) g/dL RDW Std Deviation (36.4-46.3) fL RDW Coeff of Rishabh (11.5-14.5) % Plt Count (130-400) K/uL MPV (9.4-12.4) fL Immature Gran % (Auto) % Neut % (Auto) % Lymph % (Auto) % [place] % (Auto) % Eos % (Auto) % Baso % (Auto) % Neut # (Auto) (1.40-6.50) K/uL Lymph # (Auto) (1.20-3.40) K/uL [place] # (Auto) (0.11-0.59) K/uL Eos # (Auto) (0.00-0.50) K/uL Baso # (Auto) (0.00-0.20) K/uL Immature Gran # (Auto) (0.01-0.20) K/uL PT INR POC Sodium (135-144) mmol/L Sodium (136-145) mmol/L POC Potassium (3.3-5.0) mmol/L Potassium (3.5-5.1) mmol/L POC Chloride (101-112) mmol/L Chloride (98-107) mmol/L Carbon Dioxide (21-32) mmol/L POC Total CO2 (24-31) mmol/L Anion Gap (3-11) POC Anion Gap (16-25) mmol/L POC BUN (7-18) mg/dl BUN (6-23) mg/dl Creatinine (0.6-1.2) mg/dl POC Creatinine (0.6-1.3) mg/dl Est Cr Clr Drug Dosing eGFR BUN/Creatinine Ratio (10-20) Glucose (70-99(Fasting)) mg/dl POC Glucose (other) (70-99) mg/dl Lactate 2.0 (0.4-2.0) mmol/L Calcium (8.6-10.3) mg/dl POC Ioniz Calcium Nicki (1.12-1.32) mmol/l Magnesium (1.7-2.4) mg/dl Total Bilirubin (0.2-1.0) mg/dl AST (13-39) U/L ALT (7-52) U/L Alkaline Phosphatase (34-104) U/L Total Creatine Kinase (26-192) U/L Troponin I High Sens (0-14) pg/ml Total Protein (6.0-8.3) gm/dl Albumin (3.4-5.0) gm/dl Globulin (2.5-4.0) gm/dl Albumin/Globulin Ratio (0.9-2) Procalcitonin (0-0.5) ng/ml TSH (0.300-4.500) uIu/ml Urine Color Yellow Urine Appearance Cloudy A (Clear) Urine pH 5.5 (4.5-7.5) Ur Specific [place] 1.035 H (1.000-1.030) Urine Protein 1+ H (Negative) Urine Glucose (UA) Negative (Negative) Urine Ketones Negative (Negative) Urine Blood 2+ H (Negative) Urine Nitrite Positive A (Negative) Urine Bilirubin Negative (Negative) Urine Urobilinogen Negative (Negative) Ur Leukocyte Esterase 3+ H (Negative) Urine WBC (Auto) >50 H (0-5) /hpf Urine RBC (Auto) 6-10 H (0-2) /hpf U Hyaline Cast (Auto) 3-5 H (0-2) /lpf U Epithel Cells (Auto) 0-2 (0-2) /hpf Urine Bacteria (Auto) 1+ H (None Seen) Urine Comment Adenovirus (PCR) (NotDetected) B. pertussis DNA (PCR) (NotDetected) B.parapertussis DNA PCR (NotDetected) C. pneumoniae DNA (PCR) (NotDetected) Coronavirus OC43 (PCR) (NotDetected) Coronavirus HKU1 (PCR) (NotDetected) Coronavirus 229E (PCR) (NotDetected) SARS-CoV-2 (PCR) (NotDetected) Coronavirus NL63 (PCR) (NotDetected) Human Metapneumovir PCR (NotDetected) Influenza Type A (PCR) (NotDetected) Influenza Type B (PCR) (NotDetected) M. pneumoniae (PCR) (NotDetected) Parainfluenza 1 (PCR) (NotDetected) Parainfluenza 2 (PCR) (NotDetected) Parainfluenza 3 (PCR) (NotDetected) Parainfluenza 4 (PCR) (NotDetected) RSV (PCR) (NotDetected) Entero/Rhino (PCR) (NotDetected) Administered Medications Sodium Chloride (Nss) 1,000 mls @ 75 mls/hr IV .[id number] ONE Stop: 05/21/25 10:00 Last Admin: 05/20/25 20:57 Dose: 75 mls/hr Documented By: FLOYD Discontinued Medications Sodium Chloride (Nss) 500 mls @ 999 mls/hr IV .Q31M TRINIDAD Stop: 05/20/25 18:15 Last Infusion: 05/20/25 19:38 Dose: Infused Documented By: Admin: 05/20/25 18:51 Dose: 999 mls/hr Documented By: FLOYD Sodium Chloride (Nss) 500 mls @ 999 mls/hr IV .Q31M ONE Stop: 05/20/25 18:52 Last Infusion: 05/20/25 19:38 Dose: Infused Documented By: Admin: 05/20/25 18:51 Dose: 999 mls/hr Documented By: FLOYD Sodium Chloride (Nss) 1,000 mls @ 999 mls/hr IV .Q1H1M ONE Stop: 05/20/25 19:22 Last Infusion: 05/20/25 20:14 Dose: Infused Documented By: Admin: 05/20/25 18:51 Dose: 999 mls/hr Documented By: FLOYD Cefepime HCl (Maxipime 2000mg) 2,000 mg in 20 mls @ 5 mls/min IV NOW STA; Protocol Stop: 05/20/25 18:26 Last Admin: 05/20/25 19:29 Dose: 5 mls/min Documented By: FLOYD Ioversol (Optiray 320 125ml) 115 ml IV ONCE ONE Stop: 05/20/25 18:31 Last Admin: 05/20/25 18:31 Dose: 115 ml Documented By: EPIFANIO Ondansetron HCl (Ondansetron Inj 2 Mg/Ml 2 Ml Vial) 4 mg IV NOW STA Stop: 05/20/25 19:53 Last Admin: 05/20/25 20:02 Dose: 4 mg Documented By: FLOYD Imaging Data Radiologist's Impression: Abdomen/Pelvis CT 05/20/25 17:44 Exam(s): CT ABDOMEN + PELVIS With Contrast IV Amt: 115ML OPTIRAY 320. EXAM: CT Abdomen and Pelvis With Intravenous Contrast CLINICAL HISTORY: Reason for exam: fall, weak, diarrhea. TECHNIQUE: Axial computed tomography images of the abdomen and pelvis with intravenous contrast. CTDI is 62 mGy and DLP is 1457 mGy-cm. Automated exposure control was utilized for the study. A dose lowering technique was utilized adhering to the principles of ALARA. CONTRAST: Patient received 115ML OPTIRAY 320. of IV contrast COMPARISON: CT abdomen/pelvis on 02/18/2020 FINDINGS: Lung bases: Unremarkable. No mass. No consolidation. ABDOMEN: Liver: Hepatomegaly. Gallbladder and bile ducts: Prior cholecystectomy. No ductal dilation. Pancreas: Unremarkable. No mass. No ductal dilation. Spleen: Small splenule. Mild splenomegaly. Adrenals: Unremarkable. No mass. Kidneys and ureters: 1.1 cm stone in the left renal pelvis near the left UPJ. Mild left hydronephrosis. Mild enhancement of the urothelium in the left renal pelvis, raising concern for ureteritis. Hypoenhancement of the left kidney with perinephric fat stranding. Small nonobstructing right renal stone. No hydronephrosis or ureteral stone on the right. Stomach and bowel: Evaluation of the stomach is limited by underdistention. Diverticulosis without evidence of diverticulitis. No small bowel obstruction. PELVIS: Appendix: Normal appendix. Bladder: Unremarkable. No mass. Reproductive: Prior hysterectomy. ABDOMEN and PELVIS: Intraperitoneal space: Unremarkable. No free air. No significant fluid collection. Bones/joints: Degenerative changes of the spine. No acute fracture. No dislocation. Soft tissues: Unremarkable. Vasculature: Atherosclerotic changes of the vasculature. Mild ectasia of the abdominal aorta. Phleboliths in the pelvis. No abdominal aortic aneurysm. Lymph nodes: Unremarkable. No enlarged lymph nodes. IMPRESSION: 1. 1.1 cm stone in the left renal pelvis near the left UPJ. Mild left hydronephrosis. Mild enhancement of the urothelium in the left renal pelvis, raising concern for ureteritis. Hypoenhancement of the left kidney with perinephric fat stranding. 2. Small nonobstructing right renal stone. No hydronephrosis or ureteral stone on the right. Electronically signed by: Tony Watson M.D. 05/20/25 19:[address] 05/20/25 17:44 Exam(s): CT C SPINE EXAM: CT Cervical Spine Without Intravenous Contrast CLINICAL HISTORY: Reason for exam: fall, weak. TECHNIQUE: Axial computed tomography images of the cervical spine without intravenous contrast. CTDI is 62 mGy and DLP is 1457 mGy-cm. Automated exposure control was utilized for the study. A dose lowering technique was utilized adhering to the principles of ALARA. COMPARISON: None FINDINGS: Bones: Left convex curvature of the spine. No acute fracture or bony lesion. Disc spaces: No subluxation. Degenerative changes of the spine. Moderate spinal canal stenosis at C5-6. Soft tissues: Normal. Other: Small amount of fluid in the right mastoid air cells. Atherosclerotic changes of the vasculature. IMPRESSION: No acute traumatic abnormality. Electronically signed by: Tony Watson M.D. 05/20/25 19:37 PM Chest CTA 05/20/25 17:44 Exam(s): CTA CHEST IV Amt: 115ML OPTIRAY 320. EXAM: CT Angiography Chest With Intravenous Contrast CLINICAL HISTORY: Reason for exam: PE, fall, weak. TECHNIQUE: Axial computed tomographic angiography images of the chest with intravenous contrast. CTDI is 62 mGy and DLP is 1457 mGy-cm. Automated exposure control was utilized for the study. A dose lowering technique was utilized adhering to the principles of ALARA. MIP reconstructed images were created and reviewed. COMPARISON: None FINDINGS: Pulmonary arteries: No central or large pulmonary embolus identified. Evaluation of the pulmonary arterial branches is limited by motion artifact. Aorta: Atherosclerotic changes of the aorta. No aortic aneurysm or dissection. Lungs: Small calcified granulomas in the left upper lobe and right middle lobe. Mild dependent and bibasilar atelectasis. No focal consolidation. Pleural space: Unremarkable. No significant effusion. No pneumothorax. Heart: Cardiomegaly. Coronary artery calcifications. No significant pericardial effusion. No evidence of RV dysfunction. Mediastinum: Nonspecific mildly prominent mediastinal lymph nodes. Bones/joints: Degenerative changes of the spine. No acute fracture. No dislocation. Soft tissues: Small calcifications in the left breast. Lymph nodes: See above. IMPRESSION: 1. No central or large pulmonary embolus identified. Evaluation of the pulmonary arterial branches is limited by motion artifact. 2. Atherosclerotic changes of the aorta. No aortic aneurysm or dissection. 3. No acute traumatic abnormality identified. Electronically signed by: Tony Watson M.D. 05/20/25 19:19 PM Chest X-Ray 05/20/25 17:44 Exam(s): XR CXR 1 VIEW EXAM: XR Chest, 1 View CLINICAL HISTORY: Reason for exam: weakness. TECHNIQUE: Frontal view of the chest. COMPARISON: Chest radiograph on 02/22/2025 FINDINGS: Hardware: None. Lungs/pleura: Mildly prominent lung markings. Left lower lung opacity. Possible small left pleural effusion. Heart/mediastinum: Stable enlargement of the cardiac silhouette. Atherosclerotic changes in the aorta. Soft tissues: Unremarkable. Bones: No acute fracture. Upper abdomen: Normal. IMPRESSION: 1. Mildly prominent lung markings may be secondary to technique versus pulmonary vasculature congestion. 2. Left lower lung opacity may represent atelectasis versus pneumonia. Possible small left pleural effusion. Electronically signed by: Tony Watson M.D. 05/20/25 18:[address] 05/20/25 17:44 Exam(s): CT HEAD Without Contrast EXAM: CT Head Without Intravenous Contrast CLINICAL HISTORY: Reason for exam: fall, weak. TECHNIQUE: Axial computed tomography images of the head/brain without intravenous contrast. CTDI is 62 mGy and DLP is 1457 mGy-cm. Automated exposure control was utilized for the study. A dose lowering technique was utilized adhering to the principles of ALARA. COMPARISON: MRI brain on 02/22/2025. FINDINGS: Brain: No acute infarct or hemorrhage identified. No extra-axial fluid collection. No mass effect or midline shift. Scattered areas of hypoattenuation in the supratentorial white matter likely represent chronic small vessel ischemic changes. 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 Ventricles and sulci: Prominence of the ventricles and sulci is likely secondary to cerebral volume loss. Bones: Hyperostosis frontalis interna. No bony lesion or acute fracture. Subcutaneous tissues: Normal. Sinuses: Normal. No air-fluid levels or mucosal thickening. Mastoid air cells: Normal. Orbits: Bilateral lens implants. Other: Atherosclerotic calcifications in the intracranial vasculature. IMPRESSION: 1. No acute intracranial abnormality. Further evaluation could be performed with MRI if clinically indicated. 2. Chronic small vessel ischemic changes and cerebral volume loss. Electronically signed by: Tony Watson M.D. 05/20/25 19:24 PM Discharge Plan Visit Data Chief Complaint: Fall Stated Complaint: INJURY ALERT, FALL ED Provider: Jonel Brown Discharge Problem: Weakness, Kidney stone on left side Patient Disposition: Being Evaluated by Surgeon Condition: Serious Forms [facility] Pres[facility] Prescriptions: No Action atorvastatin 40 mg Tablet 40 mg PO QAM Qty: 30 0RF clopidogrel 75 mg Tablet 75 mg PO QAM Qty: 30 0RF famotidine [Pepcid] 40 mg tablet 40 mg PO QAM lisinopril 5 mg tablet 5 mg PO QAM Referrals Referrals: Frank Pittman MD [Primary Care Provider] -
[2025-05-20 17:59] LABS: Hematocrit (blood only) 44.8 % (37.0-47.0); Hemoglobin 14.3 g/dl (12.0-16.0); Immature Granulocytes # (auto) 0.21 K/uL (0.01-0.20); Immature Granulocytes % (auto) 0.9 %; Mean Corpuscular Hemoglobin 28.0 pg (25.0-34.0); Mean Corpuscular Volume 87.8 fL (80.0-100.0); Platelet Count 239 K/uL (130-400); RDW Standard Deviation 45.9 fL (36.4-46.3); Red Blood Count 5.10 M/uL (4.20-5.40); White Blood Count 22.33 K/ul (4.8-10.8)
[2025-05-20 18:17] LABS: Alanine Aminotransferase 9 U/L (7-52); Albumin Globulin Ratio 1.0 (0.9-2); Albumin Level 3.8 gm/dl (3.4-5.0); Alkaline Phosphatase 81 U/L (34-104); Anion Gap 11 (3-11); Bilirubin,Total 1.1 mg/dl (0.2-1.0); Blood Urea Nitrogen 20 mg/dl (6-23); Calcium 9.4 mg/dl (8.6-10.3); Carbon Dioxide 23 mmol/L (21-32); Chloride 101 mmol/L (98-107); Creatine Kinase 52 U/L (26-192); Globulin 3.8 gm/dl (2.5-4.0); Glucose 157 mg/dl (70-99(Fasting)); Magnesium 1.9 mg/dl (1.7-2.4); Potassium 4.1 mmol/L (3.5-5.1); Sodium 135 mmol/L (136-145); Total Protein 7.6 gm/dl (6.0-8.3)
--- NOTE | 2025-05-20 18:18 | XRay Report ---
Exam(s): XR CXR 1 VIEW EXAM: XR Chest, 1 View CLINICAL HISTORY: Reason for exam: weakness. TECHNIQUE: Frontal view of the chest. COMPARISON: Chest radiograph on 02/22/2025 FINDINGS: Hardware: None. Lungs/pleura: Mildly prominent lung markings. Left lower lung opacity. Possible small left pleural effusion. Heart/mediastinum: Stable enlargement of the cardiac silhouette. Atherosclerotic changes in the aorta. Soft tissues: Unremarkable. Bones: No acute fracture. Upper abdomen: Normal. IMPRESSION: 1. Mildly prominent lung markings may be secondary to technique versus pulmonary vasculature congestion. 2. Left lower lung opacity may represent atelectasis versus pneumonia. Possible small left pleural effusion. Electronically signed by: Tony Watson M.D. 05/20/25 18:17 PM
[2025-05-20] MEDS: OPTIRAY 320 125ml IV ONE (18:31)
[2025-05-20 18:34] LABS: Thyroid Stimulating Hormone 2.698 uIu/ml (0.300-4.500)
[2025-05-20] MEDS: SODIUM CHLORIDE 0.9% 1,000 ML IV ONE ×2 (18:51→20:57)
[2025-05-20] MEDS: SODIUM CHLORIDE 0.9% 500 ML IV ONE (18:51)
[2025-05-20] MEDS: SODIUM CHLORIDE 0.9% 500 ML IV SCH (18:51)
[2025-05-20 19:17] LABS: Chlamydia pneumoniae PCR Not Detected (NotDetected); Coronavirus 229E PCR Not Detected (NotDetected); Coronavirus CoV-2 (COVID19)PCR Not Detected (NotDetected); Coronavirus HKU1 PCR Not Detected (NotDetected); Coronavirus NL63 PCR Not Detected (NotDetected); Coronavirus OC43PCR Not Detected (NotDetected); Human Metapneumovirus PCR Not Detected (NotDetected); Parainfluenza Virus 1 PCR Not Detected (NotDetected); Parainfluenza Virus 2 PCR Not Detected (NotDetected); Parainfluenza Virus 3 PCR Not Detected (NotDetected); Parainfluenza Virus 4 PCR Not Detected (NotDetected); Respiratory Syncytial VirusPCR Not Detected (NotDetected); Rhinovirus/Enterovirus PCR Not Detected (NotDetected)
--- NOTE | 2025-05-20 19:20 | CT Scan Report ---
Exam(s): CTA CHEST IV Amt: 115ML OPTIRAY 320. EXAM: CT Angiography Chest With Intravenous Contrast CLINICAL HISTORY: Reason for exam: PE, fall, weak. TECHNIQUE: Axial computed tomographic angiography images of the chest with intravenous contrast. CTDI is 62 mGy and DLP is 1457 mGy-cm. Automated exposure control was utilized for the study. A dose lowering technique was utilized adhering to the principles of ALARA. MIP reconstructed images were created and reviewed. COMPARISON: None FINDINGS: Pulmonary arteries: No central or large pulmonary embolus identified. Evaluation of the pulmonary arterial branches is limited by motion artifact. Aorta: Atherosclerotic changes of the aorta. No aortic aneurysm or dissection. Lungs: Small calcified granulomas in the left upper lobe and right middle lobe. Mild dependent and bibasilar atelectasis. No focal consolidation. Pleural space: Unremarkable. No significant effusion. No pneumothorax. Heart: Cardiomegaly. Coronary artery calcifications. No significant pericardial effusion. No evidence of RV dysfunction. Mediastinum: Nonspecific mildly prominent mediastinal lymph nodes. Bones/joints: Degenerative changes of the spine. No acute fracture. No dislocation. Soft tissues: Small calcifications in the left breast. Lymph nodes: See above. IMPRESSION: 1. No central or large pulmonary embolus identified. Evaluation of the pulmonary arterial branches is limited by motion artifact. 2. Atherosclerotic changes of the aorta. No aortic aneurysm or dissection. 3. No acute traumatic abnormality identified. Electronically signed by: Tony Watson M.D. 05/20/25 19:19 PM
--- NOTE | 2025-05-20 19:23 | CT Scan Report ---
Exam(s): CT ABDOMEN + PELVIS With Contrast IV Amt: 115ML OPTIRAY 320. EXAM: CT Abdomen and Pelvis With Intravenous Contrast CLINICAL HISTORY: Reason for exam: fall, weak, diarrhea. TECHNIQUE: Axial computed tomography images of the abdomen and pelvis with intravenous contrast. CTDI is 62 mGy and DLP is 1457 mGy-cm. Automated exposure control was utilized for the study. A dose lowering technique was utilized adhering to the principles of ALARA. CONTRAST: Patient received 115ML OPTIRAY 320. of IV contrast COMPARISON: CT abdomen/pelvis on 02/18/2020 FINDINGS: Lung bases: Unremarkable. No mass. No consolidation. ABDOMEN: Liver: Hepatomegaly. Gallbladder and bile ducts: Prior cholecystectomy. No ductal dilation. Pancreas: Unremarkable. No mass. No ductal dilation. Spleen: Small splenule. Mild splenomegaly. Adrenals: Unremarkable. No mass. Kidneys and ureters: 1.1 cm stone in the left renal pelvis near the left UPJ. Mild left hydronephrosis. Mild enhancement of the urothelium in the left renal pelvis, raising concern for ureteritis. Hypoenhancement of the left kidney with perinephric fat stranding. Small nonobstructing right renal stone. No hydronephrosis or ureteral stone on the right. Stomach and bowel: Evaluation of the stomach is limited by underdistention. Diverticulosis without evidence of diverticulitis. No small bowel obstruction. PELVIS: Appendix: Normal appendix. Bladder: Unremarkable. No mass. Reproductive: Prior hysterectomy. ABDOMEN and PELVIS: Intraperitoneal space: Unremarkable. No free air. No significant fluid collection. Bones/joints: Degenerative changes of the spine. No acute fracture. No dislocation. Soft tissues: Unremarkable. Vasculature: Atherosclerotic changes of the vasculature. Mild ectasia of the abdominal aorta. Phleboliths in the pelvis. No abdominal aortic aneurysm. Lymph nodes: Unremarkable. No enlarged lymph nodes. IMPRESSION: 1. 1.1 cm stone in the left renal pelvis near the left UPJ. Mild left hydronephrosis. Mild enhancement of the urothelium in the left renal pelvis, raising concern for ureteritis. Hypoenhancement of the left kidney with perinephric fat stranding. 2. Small nonobstructing right renal stone. No hydronephrosis or ureteral stone on the right. Electronically signed by: Tony Watson M.D. 05/20/25 19:22 PM
--- NOTE | 2025-05-20 19:25 | CT Scan Report ---
Exam(s): CT HEAD Without Contrast EXAM: CT Head Without Intravenous Contrast CLINICAL HISTORY: Reason for exam: fall, weak. TECHNIQUE: Axial computed tomography images of the head/brain without intravenous contrast. CTDI is 62 mGy and DLP is 1457 mGy-cm. Automated exposure control was utilized for the study. A dose lowering technique was utilized adhering to the principles of ALARA. COMPARISON: MRI brain on 02/22/2025. FINDINGS: Brain: No acute infarct or hemorrhage identified. No extra-axial fluid collection. No mass effect or midline shift. Scattered areas of hypoattenuation in the supratentorial white matter likely represent chronic small vessel ischemic changes. 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 Ventricles and sulci: Prominence of the ventricles and sulci is likely secondary to cerebral volume loss. Bones: Hyperostosis frontalis interna. No bony lesion or acute fracture. Subcutaneous tissues: Normal. Sinuses: Normal. No air-fluid levels or mucosal thickening. Mastoid air cells: Normal. Orbits: Bilateral lens implants. Other: Atherosclerotic calcifications in the intracranial vasculature. IMPRESSION: 1. No acute intracranial abnormality. Further evaluation could be performed with MRI if clinically indicated. 2. Chronic small vessel ischemic changes and cerebral volume loss. Electronically signed by: Tony Watson M.D. 05/20/25 19:24 PM
[2025-05-20] MEDS: CEFEPIME 2000MG 2,000 MG/20 ML SYR IV STA (19:29)
--- NOTE | 2025-05-20 19:37 | CT Scan Report ---
Exam(s): CT C SPINE EXAM: CT Cervical Spine Without Intravenous Contrast CLINICAL HISTORY: Reason for exam: fall, weak. TECHNIQUE: Axial computed tomography images of the cervical spine without intravenous contrast. CTDI is 62 mGy and DLP is 1457 mGy-cm. Automated exposure control was utilized for the study. A dose lowering technique was utilized adhering to the principles of ALARA. COMPARISON: None FINDINGS: Bones: Left convex curvature of the spine. No acute fracture or bony lesion. Disc spaces: No subluxation. Degenerative changes of the spine. Moderate spinal canal stenosis at C5-6. Soft tissues: Normal. Other: Small amount of fluid in the right mastoid air cells. Atherosclerotic changes of the vasculature. IMPRESSION: No acute traumatic abnormality. Electronically signed by: Tony Watson M.D. 05/20/25 19:37 PM
[2025-05-20 19:54] LABS: Appearance Urine Cloudy (Clear); Bacteria Urine Automated 1+ (None Seen); Epithelial Cell Urine Auto 0-2 /hpf (0-2); Glucose Urine UA Negative (Negative); WBC Urine Automated >50 /hpf (0-5)
[2025-05-20] MEDS: ONDANSETRON INJ 2 MG/ML 2 ML VIAL IV STA (20:02)
--- NOTE | 2025-05-20 21:16 | History & Physical Report ---
Date of Service May 20, 2025 Assessment & Plan (1) Sepsis: Plan: Assessment and plan below following discussion of case with ED provider and reviewing patient history/pertinent normal/abnormal diagnostic test results. Severe sepsis SIRS plus ARF Secondary to complicated UTI secondary to obstructive uropathy hypertension, currently stable hyperlipidemia, on statin Rx Recent CVA prediabetes, hemoglobin A1c of 6 from January 2025 Admit to med/tele CS, cefepime Urology consult re: obstructive uropathy (ED provider already in touch with Dr. Grace who recommends procedure tomorrow a.m.) N.p.o. anticipation of procedure Monitor creatinine response to IVF Hold lisinopril until creatinine back to baseline DVT prophylaxis with Heparin subcu Full code Text document was generated using [employer] voice recognition software. It may contain grammatical or spelling errors. Kindly contact undersigned for clarification of any documentation item in question. History of Present Illness Chief Complaint: Abdominal pain/back pain/weakness Primary Care Provider: Frank Pittman MD History obtained from patient and records. Medical history significant for hypertension, hyperlipidemia, CVA, prediabetes, GERD, glaucoma. Last confinement January 2025 for acute CVA presenting as aphasia. Patient discharged on Plavix and statin Rx. Patient not feeling well today. Increasingly weak. No headache, no chest pain, no SOB. Achy lower abdominal pain going to the back with nausea. No emesis. Denies hematuria. Patient fell over from weakness. Denies head trauma, LOC. IV cefepime administered at the ER. 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 Allergies Allergy/AdvReac Type Severity Reaction Status Date / Time aspirin Allergy Intermediate LIPS SWELL Verified 02/22/25 13:03 naphazoline Allergy Intermediate Lip Verified 02/22/25 13:03 swelling with "decongestants" perfume Allergy Intermediate [place]/Any Unverified 02/22/25 13:03 Fragrance - Difficulty Breathing phenylephrine Allergy Intermediate Lip Verified 02/22/25 13:03 swelling with "decongestants" pollen extracts Allergy Intermediate Nasal Unverified 02/22/25 13:03 Discharge pseudoephedrine Allergy Intermediate Lip Verified 02/22/25 13:03 swelling with "decongestants" tree and shrub pollen Allergy Intermediate Nasal Unverified 02/22/25 13:03 Discharge silver Allergy Mild Rash Verified 02/22/25 13:03 Home Medications Medication Instructions Recorded Confirmed Type atorvastatin 40 mg tablet 40 mg PO QAM #30 tabs 02/23/25 05/20/25 Rx clopidogrel 75 mg tablet 75 mg PO QAM #30 tabs 02/23/25 05/20/25 Rx famotidine 40 mg tablet (Pepcid) 40 mg PO QAM 05/20/25 05/20/25 History lisinopril 5 mg tablet 5 mg PO QAM 05/20/25 05/20/25 History Past Med/Surg History Problem List (Updated 05/21/25 @ 09:18 by David Davies MD) Sepsis Kidney stone on left side (Acute) Weakness (Acute) Dysarthria as late effect of cerebrovascular accident (CVA) Dyslipidemia Prediabetes Hypertension 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 Cerebrovascular accident (CVA) of left thalamus Word finding difficulty Vertebral artery stenosis GERD (gastroesophageal reflux disease) (Chronic) Osteoarthritis Elevated troponin (Acute) Stroke-like symptoms Hypertensive emergency CVA (cerebral vascular accident) (Acute) Hypokalemia Encounter for pre-operative examination Medical History Borderline high cholesterol Cardiac murmur MILD--follows with PCP Diverticulitis HX GERD (gastroesophageal reflux disease) Hiatal hernia History of colon polyps History of stroke DECEMBER 2019 - RESIDUAL EFFECT: ONCE IN A WHILE SPEECH SLURRED AND THERAPY FOR WRITING Macular degeneration 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 Morbid obesity with BMI of 40.0-44.9, adult Surgical History H/O cervical spine surgery BONE CHIP REMOVAL History of anesthesia reaction SLOW TO WAKE UP History of bilateral cataract extraction History of bilateral tubal ligation History of cholecystectomy History of colonoscopy History of esophagogastroduodenoscopy (EGD) History of tooth extraction Family History Father No problems noted. Mother Family history of diabetes mellitus Other No family history of adverse response to anesthesia Social History Smoking Status: Never smoker Second Hand Exposure: No; Do You Dip or Chew Tobacco: No; Tobacco Cessation Education Requested by Patient: No Hx Alcohol Use: No Hx Substance Use: No Preferred Language: Finnish Communication Ability: Effective Vineyard Supervisor Required: No Beliefs That Will Affect Care: None Current Living Situation: Family Current Living Situation Comment: pt lives/cares for with dementia at home. Son lives at home as well Other Information That Helps Us Care for You: No Feels Safe at Home: Yes Safety Concerns: Feels Safe At This Time Assistive Devices: Denture - Upper and Denture - Lower Review of Systems Review of Systems: As per HPI, all other systems reviewed and negative Physical Exam Physical Exam: GENERAL: uncomfortable, anxious, obese no respiratory distress SKIN: Normal color, warm HEENT: [place] palpebral conjunctivae, no ptosis, dry buccal mucosa NECK : Supple, short neck, no tenderness CHEST : CTA, no tenderness HEART : RRR, no obvious murmurs ABDOMEN: Some distention, left-sided abdominal tenderness EXTREMITIES : Minimal LE swelling, no LE tenderness, palpable pulses, no other conspicuous deformities noted NEUROLOGIC : Coherent, no facial asymmetry, no other gross focality Results & Data Results & Data Vital Signs (Past 12 Hours) Vital Signs Temp Pulse Pulse Resp BP BP Pulse Ox 05/20/25 20:00 97 H 16 148/99 H 96 05/20/25 20:00 94 H 16 148/99 H 96 05/20/25 19:00 91 H 16 154/74 H 98 05/20/25 18:51 91 H 16 150/108 H 98 05/20/25 18:26 81 05/20/25 17:52 91 H 22 138/77 95 05/20/25 17:52 91 H 22 95 05/20/25 17:52 36.8 C 91 H 16 138/77 95 O2 Del Method O2 Flow Rate 05/20/25 20:00 Nasal Cannula 2 05/20/25 20:00 Nasal Cannula 2 05/20/25 19:00 Nasal Cannula 2 05/20/25 18:51 Nasal Cannula 2 05/20/25 18:26 05/20/25 17:52 Nasal Cannula 2 05/20/25 17:52 Nasal Cannula 2 05/20/25 17:52 Nasal Cannula 2 Laboratory Results Laboratory Results WBC 22.33 K/ul (4.8-10.8) H 05/20/25 17:16 RBC 5.10 M/uL (4.20-5.40) 05/20/25 17:16 Hgb 14.3 g/dl (12.0-16.0) 05/20/25 17:16 POC Hgb 15.3 g/dl (12.0-16.0) 05/20/25 18:04 Hct 44.8 % (37.0-47.0) 05/20/25 17:16 POC Hct 45 % (37-47) 05/20/25 18:04 MCV 87.8 fL (80.0-100.0) 05/20/25 17:16 MCH 28.0 pg (25.0-34.0) 05/20/25 17:16 MCHC 31.9 g/dL (32.0-36.0) L 05/20/25 17:16 RDW Std Deviation 45.9 fL (36.4-46.3) 05/20/25 17:16 RDW Coeff of Rishabh 14.2 % (11.5-14.5) 05/20/25 17:16 Plt Count 239 K/uL (130-400) 05/20/25 17:16 MPV 10.5 fL (9.4-12.4) 05/20/25 17:16 Immature Gran % (Auto) 0.9 % 05/20/25 17:16 Neut % (Auto) 86.6 % 05/20/25 17:16 Lymph % (Auto) 3.7 % 05/20/25 17:16 [place] % (Auto) 8.6 % 05/20/25 17:16 Eos % (Auto) 0.0 % 05/20/25 17:16 Baso % (Auto) 0.2 % 05/20/25 17:16 Neut # (Auto) 19.31 K/uL (1.40-6.50) H 05/20/25 17:16 Lymph # (Auto) 0.83 K/uL (1.20-3.40) L 05/20/25 17:16 [place] # (Auto) 1.93 K/uL (0.11-0.59) H 05/20/25 17:16 Eos # (Auto) 0.00 K/uL (0.00-0.50) 05/20/25 17:16 Baso # (Auto) 0.05 K/uL (0.00-0.20) 05/20/25 17:16 Immature Gran # (Auto) 0.21 K/uL (0.01-0.20) H 05/20/25 17:16 PT Cancelled 05/20/25 17:16 INR Cancelled 05/20/25 17:16 POC Sodium 136 mmol/L (135-144) 05/20/25 18:04 Sodium 135 mmol/L (136-145) L 05/20/25 17:16 POC Potassium 4.7 mmol/L (3.3-5.0) 05/20/25 18:04 Potassium 4.1 mmol/L (3.5-5.1) 05/20/25 17:16 POC Chloride 104 mmol/L (101-112) 05/20/25 18:04 Chloride 101 mmol/L (98-107) 05/20/25 17:16 Carbon Dioxide 23 mmol/L (21-32) 05/20/25 17:16 POC Total CO2 22 mmol/L (24-31) L 05/20/25 18:04 Anion Gap 11 (3-11) 05/20/25 17:16 POC Anion Gap 16.0 mmol/L (16-25) 05/20/25 18:04 POC BUN 25 mg/dl (7-18) H 05/20/25 18:04 BUN 20 mg/dl (6-23) 05/20/25 17:16 Creatinine 1.60 mg/dl (0.6-1.2) H 05/20/25 17:16 POC Creatinine 1.6 mg/dl (0.6-1.3) H 05/20/25 18:04 Est Cr Clr Drug Dosing Not Reportable 05/20/25 17:16 eGFR 32.81 05/20/25 17:16 BUN/Creatinine Ratio 12.5 (10-20) 05/20/25 17:16 Glucose 157 mg/dl (70-99(Fasting)) H 05/20/25 17:16 POC Glucose (other) 154 mg/dl (70-99) H 05/20/25 18:04 Lactate 2.0 mmol/L (0.4-2.0) 05/20/25 18:56 Calcium 9.4 mg/dl (8.6-10.3) 05/20/25 17:16 POC Ioniz Calcium Nicki 1.09 mmol/l (1.12-1.32) L 05/20/25 18:04 Magnesium 1.9 mg/dl (1.7-2.4) 05/20/25 17:16 Total Bilirubin 1.1 mg/dl (0.2-1.0) H 05/20/25 17:16 AST 14 U/L (13-39) 05/20/25 17:16 ALT 9 U/L (7-52) 05/20/25 17:16 Alkaline Phosphatase 81 U/L (34-104) 05/20/25 17:16 Total Creatine Kinase 52 U/L (26-192) 05/20/25 17:16 Troponin I High Sens 13.8 pg/ml (0-14) 05/20/25 17:16 Total Protein 7.6 gm/dl (6.0-8.3) 05/20/25 17:16 Albumin 3.8 gm/dl (3.4-5.0) 05/20/25 17:16 Globulin 3.8 gm/dl (2.5-4.0) 05/20/25 17:16 Albumin/Globulin Ratio 1.0 (0.9-2) 05/20/25 17:16 Procalcitonin 0.43 ng/ml (0-0.5) 05/20/25 17:16 TSH 2.698 uIu/ml (0.300-4.500) 05/20/25 17:16 Urine Color Yellow 05/20/25: Urine Appearance Cloudy (Clear) A 05/20/25: Urine pH 5.5 (4.5-7.5) 05/20/25: Ur Specific [place] 1.035 (1.000-1.030) H 05/20/25: Urine Protein 1+ (Negative) H 05/20/25: Urine Glucose (UA) Negative (Negative) 05/20/25: Urine Ketones Negative (Negative) 05/20/25: Urine Blood 2+ (Negative) H 05/20/25: Urine Nitrite Positive (Negative) A 10/20/25 19:25 Urine Bilirubin Negative (Negative) 05/20/25 19:25 Urine Urobilinogen Negative (Negative) 05/20/25:25 Ur Leukocyte Esterase 3+ (Negative) H 05/20/25:25 Urine WBC (Auto) >50 /hpf (0-5) H 05/20/25:25 Urine RBC (Auto) 6-10 /hpf (0-2) H 05/20/25: U Hyaline Cast (Auto) 3-5 /lpf (0-2) H 05/20/25:25 U Epithel Cells (Auto) 0-2 /hpf (0-2) 05/20/25:25 Urine Bacteria (Auto) 1+ (None Seen) H 05/20/25: Urine Comment 05/20/25:25 Adenovirus (PCR) Not Detected (NotDetected) 05/20/25 17:53 B. pertussis DNA (PCR) Not Detected (NotDetected) 05/20/25 17:53 B.parapertussis DNA PCR Not Detected (NotDetected) 05/20/25 17:53 C. pneumoniae DNA (PCR) Not Detected (NotDetected) 05/20/25 17:53 Coronavirus OC43 (PCR) Not Detected (NotDetected) 05/20/25 17:53 Coronavirus HKU1 (PCR) Not Detected (NotDetected) 05/20/25 17:53 Coronavirus 229E (PCR) Not Detected (NotDetected) 05/20/25 17:53 SARS-CoV-2 (PCR) Not Detected (NotDetected) 05/20/25 17:53 Coronavirus NL63 (PCR) Not Detected (NotDetected) 05/20/25 17:53 Human Metapneumovir PCR Not Detected (NotDetected) 05/20/25 17:53 Influenza Type A (PCR) Not Detected (NotDetected) 05/20/25 17:53 Influenza Type B (PCR) Not Detected (NotDetected) 05/20/25 17:53 M. pneumoniae (PCR) Not Detected (NotDetected) 05/20/25 17:53 Parainfluenza 1 (PCR) Not Detected (NotDetected) 05/20/25 17:53 Parainfluenza 2 (PCR) Not Detected (NotDetected) 05/20/25 17:53 Parainfluenza 3 (PCR) Not Detected (NotDetected) 05/20/25 17:53 Parainfluenza 4 (PCR) Not Detected (NotDetected) 05/20/25 17:53 RSV (PCR) Not Detected (NotDetected) 05/20/25 17:53 Entero/Rhino (PCR) Not Detected (NotDetected) 05/20/25 17:53 Impressions Abdomen/Pelvis CT 05/20/25 17:44 Exam(s): CT ABDOMEN + PELVIS With Contrast IV Amt: 115ML OPTIRAY 320. EXAM: CT Abdomen and Pelvis With Intravenous Contrast CLINICAL HISTORY: Reason for exam: fall, weak, diarrhea. TECHNIQUE: Axial computed tomography images of the abdomen and pelvis with intravenous contrast. CTDI is 62 mGy and DLP is 1457 mGy-cm. Automated exposure control was utilized for the study. A dose lowering technique was utilized adhering to the principles of ALARA. CONTRAST: Patient received 115ML OPTIRAY 320. of IV contrast COMPARISON: CT abdomen/pelvis on 02/18/2020 FINDINGS: Lung bases: Unremarkable. No mass. No consolidation. ABDOMEN: Liver: Hepatomegaly. Gallbladder and bile ducts: Prior cholecystectomy. No ductal dilation. Pancreas: Unremarkable. No mass. No ductal dilation. Spleen: Small splenule. Mild splenomegaly. Adrenals: Unremarkable. No mass. Kidneys and ureters: 1.1 cm stone in the left renal pelvis near the left UPJ. Mild left hydronephrosis. Mild enhancement of the urothelium in the left renal pelvis, raising concern for ureteritis. Hypoenhancement of the left kidney with perinephric fat stranding. Small nonobstructing right renal stone. No hydronephrosis or ureteral stone on the right. Stomach and bowel: Evaluation of the stomach is limited by underdistention. Diverticulosis without evidence of diverticulitis. No small bowel obstruction. PELVIS: Appendix: Normal appendix. Bladder: Unremarkable. No mass. Reproductive: Prior hysterectomy. ABDOMEN and PELVIS: Intraperitoneal space: Unremarkable. No free air. No significant fluid collection. Bones/joints: Degenerative changes of the spine. No acute fracture. No dislocation. Soft tissues: Unremarkable. Vasculature: Atherosclerotic changes of the vasculature. Mild ectasia of the abdominal aorta. Phleboliths in the pelvis. No abdominal aortic aneurysm. Lymph nodes: Unremarkable. No enlarged lymph nodes. IMPRESSION: 1. 1.1 cm stone in the left renal pelvis near the left UPJ. Mild left hydronephrosis. Mild enhancement of the urothelium in the left renal pelvis, raising concern for ureteritis. Hypoenhancement of the left kidney with perinephric fat stranding. 2. Small nonobstructing right renal stone. No hydronephrosis or ureteral stone on the right. Electronically signed by: Tony Watson M.D. 05/20/25 19:[address] 05/20/25 17:44 Exam(s): CT C SPINE EXAM: CT Cervical Spine Without Intravenous Contrast CLINICAL HISTORY: Reason for exam: fall, weak. TECHNIQUE: Axial computed tomography images of the cervical spine without intravenous contrast. CTDI is 62 mGy and DLP is 1457 mGy-cm. Automated exposure control was utilized for the study. A dose lowering technique was utilized adhering to the principles of ALARA. COMPARISON: None FINDINGS: Bones: Left convex curvature of the spine. No acute fracture or bony lesion. Disc spaces: No subluxation. Degenerative changes of the spine. Moderate spinal canal stenosis at C5-6. Soft tissues: Normal. Other: Small amount of fluid in the right mastoid air cells. Atherosclerotic changes of the vasculature. IMPRESSION: No acute traumatic abnormality. Electronically signed by: Tony Watson M.D. 05/20/25 19:37 PM Chest CTA 05/20/25 17:44 Exam(s): CTA CHEST IV Amt: 115ML OPTIRAY 320. EXAM: CT Angiography Chest With Intravenous Contrast CLINICAL HISTORY: Reason for exam: PE, fall, weak. TECHNIQUE: Axial computed tomographic angiography images of the chest with intravenous contrast. CTDI is 62 mGy and DLP is 1457 mGy-cm. Automated exposure control was utilized for the study. A dose lowering technique was utilized adhering to the principles of ALARA. MIP reconstructed images were created and reviewed. COMPARISON: None FINDINGS: Pulmonary arteries: No central or large pulmonary embolus identified. Evaluation of the pulmonary arterial branches is limited by motion artifact. Aorta: Atherosclerotic changes of the aorta. No aortic aneurysm or dissection. Lungs: Small calcified granulomas in the left upper lobe and right middle lobe. Mild dependent and bibasilar atelectasis. No focal consolidation. Pleural space: Unremarkable. No significant effusion. No pneumothorax. Heart: Cardiomegaly. Coronary artery calcifications. No significant pericardial effusion. No evidence of RV dysfunction. Mediastinum: Nonspecific mildly prominent mediastinal lymph nodes. Bones/joints: Degenerative changes of the spine. No acute fracture. No dislocation. Soft tissues: Small calcifications in the left breast. Lymph nodes: See above. IMPRESSION: 1. No central or large pulmonary embolus identified. Evaluation of the pulmonary arterial branches is limited by motion artifact. 2. Atherosclerotic changes of the aorta. No aortic aneurysm or dissection. 3. No acute traumatic abnormality identified. Electronically signed by: Tony Watson M.D. 05/20/25 19:19 PM Chest X-Ray 05/20/25 17:44 Exam(s): XR CXR 1 VIEW EXAM: XR Chest, 1 View CLINICAL HISTORY: Reason for exam: weakness. TECHNIQUE: Frontal view of the chest. COMPARISON: Chest radiograph on 02/22/2025 FINDINGS: Hardware: None. Lungs/pleura: Mildly prominent lung markings. Left lower lung opacity. Possible small left pleural effusion. Heart/mediastinum: Stable enlargement of the cardiac silhouette. Atherosclerotic changes in the aorta. Soft tissues: Unremarkable. Bones: No acute fracture. Upper abdomen: Normal. IMPRESSION: 1. Mildly prominent lung markings may be secondary to technique versus pulmonary vasculature congestion. 2. Left lower lung opacity may represent atelectasis versus pneumonia. Possible small left pleural effusion. Electronically signed by: Tony Watson M.D. 05/20/25 18:[address] 05/20/25 17:44 Exam(s): CT HEAD Without Contrast EXAM: CT Head Without Intravenous Contrast CLINICAL HISTORY: Reason for exam: fall, weak. TECHNIQUE: Axial computed tomography images of the head/brain without intravenous contrast. CTDI is 62 mGy and DLP is 1457 mGy-cm. Automated exposure control was utilized for the study. A dose lowering technique was utilized adhering to the principles of ALARA. COMPARISON: MRI brain on 02/22/2025. FINDINGS: Brain: No acute infarct or hemorrhage identified. No extra-axial fluid collection. No mass effect or midline shift. Scattered areas of hypoattenuation in the supratentorial white matter likely represent chronic small vessel ischemic changes. 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 Ventricles and sulci: Prominence of the ventricles and sulci is likely secondary to cerebral volume loss. Bones: Hyperostosis frontalis interna. No bony lesion or acute fracture. Subcutaneous tissues: Normal. Sinuses: Normal. No air-fluid levels or mucosal thickening. Mastoid air cells: Normal. Orbits: Bilateral lens implants. Other: Atherosclerotic calcifications in the intracranial vasculature. IMPRESSION: 1. No acute intracranial abnormality. Further evaluation could be performed with MRI if clinically indicated. 2. Chronic small vessel ischemic changes and cerebral volume loss. Electronically signed by: Tony Watson M.D. 05/20/25 19:24 PM Diagnostic Findings EKG as per my interpretation :Rate 90, NSR, normal axis, T wave abnormalities inferior leads
[2025-05-20] MEDS ORDERED: PROMETHAZINE 6.25 MG/50.25 ML BAG IV PRN (22:09)
[2025-05-20] MEDS ORDERED: ACETAMINOPHEN 325 MG TAB PO PRN (22:09)
[2025-05-21] MEDS: MAGNESIUM SULFATE / D5W 1 GM/100 ML BAG IV ONE (00:51)
[2025-05-21 02:39] LABS: Hematocrit (blood only) 37.9 % (37.0-47.0); Hemoglobin 12.7 g/dl (12.0-16.0); Immature Granulocytes # (auto) 0.23 K/uL (0.01-0.20); Immature Granulocytes % (auto) 1.0 %; Mean Corpuscular Hemoglobin 29.5 pg (25.0-34.0); Mean Corpuscular Volume 88.1 fL (80.0-100.0); Platelet Count 205 K/uL (130-400); RDW Standard Deviation 46.2 fL (36.4-46.3); Red Blood Count 4.30 M/uL (4.20-5.40); White Blood Count 21.95 K/ul (4.8-10.8)
[2025-05-21 02:55] LABS: Anion Gap 8.0 (3-11); Blood Urea Nitrogen 20.0 mg/dl (6-23); Calcium 8.4 mg/dl (8.6-10.3); Carbon Dioxide 21.0 mmol/L (21-32); Chloride 107.0 mmol/L (98-107); Creatinine Clr Calc Pharmacy 33.6 ml/min; Glucose 154.0 mg/dl (70-99(Fasting)); Potassium 4.3 mmol/L (3.5-5.1); Sodium 136.0 mmol/L (136-145)
[2025-05-21 03:04] LABS: INR 1.2 (0.9-1.1); Prothrombin Time 12.5 Seconds (9.0-12.0)
[2025-05-21] MEDS: HEPARIN SOD 5,000 UNIT/0.5 ML VIAL SQ SCH (05:39)
[2025-05-21] MEDS: CEFEPIME 2000MG 2,000 MG/20 ML SYR IV SCH (05:39)
[2025-05-21 08:16] LABS: A calco-baum cmplx NotReported Not Detected (NotDetected); Bact fragilis Not Reported Not Detected (NotDetected); Blood Culture Id Panel See PCR Comment (NotDetected); C auris Not Reported Not Detected (NotDetected); CTX-M Resistant Gene Not Detected (NotDetected); Calbicans Not Reported Not Detected (NotDetected); Candida glabrata Not Reported Not Detected (NotDetected); Candida krusei Not Reported Not Detected (NotDetected); Cneoformans/gatti Not Reported Not Detected (NotDetected); Cparapsilosis Not Reported Not Detected (NotDetected); Ctropicalis Not Reported Not Detected (NotDetected); E cloacae compx Not Reported Not Detected (NotDetected); Efaecalis Not Reported Not Detected (NotDetected); Efaecium Not Reported Not Detected (NotDetected); Enterobacterales DETECTED (NotDetected); Enterobacterales Not Reported DETECTED (NotDetected); Escherichia coli Not Reported DETECTED (NotDetected); H influenzae Not Reported Not Detected (NotDetected); IMP Resistant Gene Not Detected (NotDetected); K aerogenes Not Reported Not Detected (NotDetected); KPC Resistant Gene Not Detected (NotDetected); Koxytoca Not Reported Not Detected (NotDetected); Kpneumoniae grp Not Reported Not Detected (NotDetected); Lmonocyt Not Reported Not Detected (NotDetected); N meningitidis Not Reported Not Detected (NotDetected); NDM Resistant Gene Not Detected (NotDetected); OXA 48 Like Resistant Gene Not Detected (NotDetected); P aeruginosa Not Reported Not Detected (NotDetected); Proteus spp Not Reported Not Detected (NotDetected); Salmonella spp Not Reported Not Detected (NotDetected); Staph lugdunensis Not Reported Not Detected (NotDetected); Staph spp. Not Reported Not Detected (NotDetected); Staphaureus Not Reported Not Detected (NotDetected); Staphepi Not Reported Not Detected (NotDetected); Stenmaltophilia Not Reported Not Detected (NotDetected); Strep agal(GrpB) Not Reported Not Detected (NotDetected); Strep pneum Not Reported Not Detected (NotDetected); Strep pyog (GrpA) Not Reported Not Detected (NotDetected); Strep spp Not Reported Not Detected (NotDetected); VIM Resistant Gene Not Detected (NotDetected); mcr-1 Colistin Resistant Gene Not Detected (NotDetected)
--- NOTE | 2025-05-21 08:21 | Urology Consultation ---
Date of Consultation May 21, 2025 Assessment & Plan (1) Kidney stone on left side: Left proximal ureteral calculus causing obstruction and subsequent inflammation of the kidney Plan for intervention today via cystoscopy left ureteral stent placement She will need to return in the future for an outpatient surgery to treat her stone Continue n.p.o. for now, once stent is placed if she feels much better she will likely be discharged home consent on the chart, risks, benefits, and expectations reviewed in detail History of Present Illness Attending Physician: Kelechi Rose MD History of Present Illness 79-year-old female admitted after a fall yesterday and some generalized weakness as well as left flank pain No fevers or chills Has a history of CVA Currently on Plavix No prior history of kidney stones or prior surgical intervention from urology Had a CT on arrival which shows inflammation in the left kidney with hydronephrosis extending to a proximal left ureteral calculus Elevated white blood cell count Hemodynamically stable and although uncomfortable, she does not appear to be acutely ill Allergies Allergy/AdvReac Type Severity Reaction Status Date / Time aspirin Allergy Intermediate LIPS SWELL Verified 02/22/25 13:03 naphazoline Allergy Intermediate Lip Verified 02/22/25 13:03 swelling with "decongestants" perfume Allergy Intermediate [place]/Any Unverified 02/22/25 13:03 Fragrance - Difficulty Breathing phenylephrine Allergy Intermediate Lip Verified 02/22/25 13:03 swelling with "decongestants" pollen extracts Allergy Intermediate Nasal Unverified 02/22/25 13:03 Discharge pseudoephedrine Allergy Intermediate Lip Verified 02/22/25 13:03 swelling with "decongestants" tree and shrub pollen Allergy Intermediate Nasal Unverified 02/22/25 13:03 Discharge silver Allergy Mild Rash Verified 02/22/25 13:03 Home Medications Medication Instructions Recorded Confirmed Type atorvastatin 40 mg tablet 40 mg PO QAM #30 tabs 02/23/25 05/20/25 Rx clopidogrel 75 mg tablet 75 mg PO QAM #30 tabs 02/23/25 05/20/25 Rx famotidine 40 mg tablet (Pepcid) 40 mg PO QAM 05/20/25 05/20/25 History lisinopril 5 mg tablet 5 mg PO QAM 05/20/25 05/20/25 History Patient History Medical History Borderline high cholesterol Cardiac murmur MILD--follows with PCP Diverticulitis HX GERD (gastroesophageal reflux disease) Hiatal hernia History of colon polyps History of stroke DECEMBER 2019 - RESIDUAL EFFECT: ONCE IN A WHILE SPEECH SLURRED AND THERAPY FOR WRITING Macular degeneration 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 Morbid obesity with BMI of 40.0-44.9, adult Surgical History H/O cervical spine surgery BONE CHIP REMOVAL History of anesthesia reaction SLOW TO WAKE UP History of bilateral cataract extraction History of bilateral tubal ligation History of cholecystectomy History of colonoscopy History of esophagogastroduodenoscopy (EGD) History of tooth extraction Family History Father No problems noted. Mother Family history of diabetes mellitus Other No family history of adverse response to anesthesia Social History Smoking Status: Never smoker Second Hand Exposure: No; Do You Dip or Chew Tobacco: No; Tobacco Cessation Education Requested by Patient: No Hx Alcohol Use: No Hx Substance Use: No Preferred Language: [place] Communication Ability: Effective National Account Manager Required: No Beliefs That Will Affect Care: None Current Living Situation: Family Current Living Situation Comment: pt lives/cares for with dementia at home. Son lives at home as well Other Information That Helps Us Care for You: No Feels Safe at Home: Yes Safety Concerns: Feels Safe At This Time Assistive Devices: Denture - Upper and Denture - Lower Physical Exam Physical Exam: Uncomfortable but but not toxic Constitutional: well developed and well nourished Neck: neck nontender Respiratory: normal respiratory effort; no respiratory distress and does not use accessory muscles Cardiovascular: Rate/Rhythm: regular rate Vessels: radial pulses present Extremities: no edema Gastrointestinal (Abdomen): Inspection/Auscultation: abdomen normal to inspection Percussion/Palpation: abdomen soft; abdomen nontender and no gua rding Musculoskeletal: Head/Neck/Chest: normocephalic and head atraumatic Extremities: extremities normal to inspection Skin: no rashes and no lesions Trauma: no evidence of skin trauma Neurologic: awake; not obtunded Speech / Cognition: normal speech Motor/Sensory: no tremor Psychiatric: Orientation: alert and oriented x 3 Lymphatic: no lymphadenopathy Results & Data Vital Signs (Past 12 Hours) Vital Signs Temp Pulse Pulse Pulse Resp BP BP 05/21/25 07:42 37.2 C 86 16 115/65 05/21/25 07:22 85 05/21/25 03:44 37.2 C 92 H 22 135/69 05/21/25 01:05 05/21/25 01:05 37.5 C 97 H 22 145/69 H 05/21/25 00:15 91 H 05/20/25 23:03 99 H 16 135/59 L 05/20/25 22:32 97 H 05/20/25 22:00 98 H 16 05/20/25 22:00 98 H 16 05/20/25 21:00 106 H 16 BP Pulse Ox O2 Del Method O2 Flow Rate 05/21/25 07:42 95 Nasal Cannula 2 05/21/25 07:22 05/21/25 03:44 95 Nasal Cannula 1 05/21/25 01:05 Nasal Cannula 2 05/21/25 01:05 93 Nasal Cannula 2 05/21/25 00:15 05/20/25 23:03 92 Nasal Cannula 2 05/20/25 22:32 05/20/25 22:00 118/90 95 Nasal Cannula 2 05/20/25 22:00 118/90 95 Nasal Cannula 2 05/20/25 21:00 106/82 PG Care Time/CCT Total # of Minutes Spent Total Time Spent with Patient: Total time spent is greater than 50% in coordination of care (as documented) at patient's floor/unit and/or counseling patient: Coding Level of Care Code 59629 INT INP/OBS CARE 2/55MIN Diagnoses Kidney stone on left side N20.0
[2025-05-21] MEDS: CLOPIDOGREL BISULFATE 75 MG TAB PO SCH (08:22)
[2025-05-21] MEDS: FAMOTIDINE 40 MG TABLET PO SCH (08:22)
[2025-05-21] MEDS: ATORVASTATIN 40 MG TAB PO SCH (08:22)
[2025-05-21] MEDS: SODIUM CHLORIDE 0.9% 1,000 ML IV ONE (08:27)
[2025-05-21] MEDS ORDERED: ATROPINE SULFATE 0.1 MG/ML 10ML SYR IV PRN (09:17)
[2025-05-21] MEDS ORDERED: ONDANSETRON INJ 2 MG/ML 2 ML VIAL IV PRN (09:17)
--- NOTE | 2025-05-21 09:17 | Anesthesiology Consultation ---
Date of Service May 21, 2025 Assessment & Plan Chart Review Chart Review: Acceptable Risk for Surgery and Patient NOT seen in Pre Admission Testing Consults Requested none ASA ASA4 Proposed Anesthesia Anesthesia Type: MAC Risk / Benefits Reviewed With: PT / POA / Parent / Guardian, Accepts Plan and Informed Consent Obtained History Surgery Operation Date: 05/21/25 07:00 Proposed Procedures p Cystoscopy, Left Stent Placement - Hunter Grace MD Height/Weight Height: 5 ft 2 in Weight: 106.05 kg Allergies Allergy/AdvReac Type Severity Reaction Status Date / Time aspirin Allergy Intermediate LIPS SWELL Verified 02/22/25 13:03 naphazoline Allergy Intermediate Lip Verified 02/22/25 13:03 swelling with "decongestants" perfume Allergy Intermediate [place]/Any Unverified 02/22/25 13:03 Fragrance - Difficulty Breathing phenylephrine Allergy Intermediate Lip Verified 02/22/25 13:03 swelling with "decongestants" pollen extracts Allergy Intermediate Nasal Unverified 02/22/25 13:03 Discharge pseudoephedrine Allergy Intermediate Lip Verified 02/22/25 13:03 swelling with "decongestants" tree and shrub pollen Allergy Intermediate Nasal Unverified 02/22/25 13:03 Discharge silver Allergy Mild Rash Verified 02/22/25 13:03 Medications Home Medications Medication Instructions Recorded Confirmed Last Taken atorvastatin 40 mg tablet 40 mg PO QAM #30 tabs 02/23/25 05/20/25 Unknown clopidogrel 75 mg tablet 75 mg PO QAM #30 tabs 02/23/25 05/20/25 Unknown famotidine 40 mg tablet (Pepcid) 40 mg PO QAM 05/20/25 05/20/25 Unknown lisinopril 5 mg tablet 5 mg PO QAM 05/20/25 05/20/25 Unknown Active Medications Generic Name Dose Route Start Last Admin Trade Name Freq PRN Reason Stop Dose Admin Atorvastatin Calcium 40 mg 05/21/25 09:00 05/21/25 08:22 Atorvastatin 40 Mg Tab PO 06/20/25 08:59 40 mg QAM TRINIDAD Administration Clopidogrel Bisulfate 75 mg 05/21/25 09:00 05/21/25 08:22 Clopidogrel Bisulfate 75 Mg Tab PO 06/20/25 08:59 75 mg QAM TRINIDAD Administration Famotidine 40 mg 05/21/25 09:00 05/21/25 08:22 Famotidine 40 Mg Tablet PO 06/20/25 08:59 40 mg QAM TRINIDAD Administration Heparin Sodium (Porcine) 5,000 units 05/21/25 06:00 05/21/25 05:39 Heparin Sod 5,000 Unit/0.5 Ml Vial SQ 06/20/25 05:59 5,000 units Q8 TRINIDAD Administration Sodium Chloride 1,000 mls @ 75 mls/hr 05/20/25 20:41 05/21/25 08:26 Nss IV 05/21/25 10:00 Infused .[id number] ONE Infusion Cefepime HCl 2,000 mg in 20 mls @ 5 mls/min 05/21/25 06:00 05/21/25 05:39 Maxipime 2000mg IV 05/31/25 05:59 5 mls/min Q12H TRINIDAD Administration Protocol Sodium Chloride 1,000 mls @ 75 mls/hr 05/21/25 10:00 05/21/25 08:27 Nss IV 05/21/25 23:19 75 mls/hr .[id number] Administration NPO Date Last Intake of Fluids: 05/21/25 Time Last Intake of Fluids: 08:00 Last Intake of Fluids Comment: sip with med Date Last Intake of Solids: 05/19/25 Time Last Intake of Solids: 18:00 Past Medical History Medical History Borderline high cholesterol Cardiac murmur MILD--follows with PCP Diverticulitis HX GERD (gastroesophageal reflux disease) Hiatal hernia History of colon polyps History of stroke DECEMBER 2019 - RESIDUAL EFFECT: ONCE IN A WHILE SPEECH SLURRED AND THERAPY FOR WRITING Macular degeneration 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 Morbid obesity with BMI of 40.0-44.9, adult Exercise / Class Metabolic Activity II 4-5 Yardwork/Stairs/Walk up hill Past Family History Family History Father No problems noted. Mother Family history of diabetes mellitus Other No family history of adverse response to anesthesia Past Surgical History Surgical History H/O cervical spine surgery BONE CHIP REMOVAL History of anesthesia reaction SLOW TO WAKE UP History of bilateral cataract extraction History of bilateral tubal ligation History of cholecystectomy History of colonoscopy History of esophagogastroduodenoscopy (EGD) History of tooth extraction Past Anesthesia History No Hx of Anesthesia Complications and No Family Hx of Anesthesia Complications History of PONV No Hx of PONV and No Hx of Motion Sickness Social History Smoking Status: Never smoker Do You Dip or Chew Tobacco: No Hx Alcohol Use: No alcohol intake frequency: holidays/special occasions only Hx Substance Use: No substance use type: does not use Physical Exam Vital Signs Last Vital Signs Temp 38.3 C H 05/21/25 09:06 Pulse 84 05/21/25 09:06 Resp 22 05/21/25 09:06 BP 119/53 L 05/21/25 09:06 Pulse Ox 95 05/21/25 09:06 O2 Del Method Nasal Cannula 05/21/25 09:06 O2 Flow Rate 2 05/21/25 09:06 Constitutional + obese ENMT Mouth: no dentition abnormality Thyromental Distance: > or= 3.5 Finger Breadths Mallampati Class: II Neck normal visual inspection Respiratory normal respiratory effort Auscultation: lungs clear to auscultation bilaterally Cardiovascular Rate/Rhythm: regular rate and regular rhythm Psychiatric Orientation: alert Testing Laboratory Results 05/21/25 02:13 05/21/25 02:13 PT 12.5 Seconds (9.0-12.0) H 05/21/25 02:13 INR 1.2 (0.9-1.1) H 05/21/25 02:13 Urine Color Yellow 05/20/25:25 Urine Appearance Cloudy (Clear) A 05/20/25: Urine pH 5.5 (4.5-7.5) 05/20/25: Ur Specific [place] 1.035 (1.000-1.030) H 05/20/25 19:25 Urine Protein 1+ (Negative) H 05/20/25 19:25 Urine Glucose (UA) Negative (Negative) 05/20/25: Urine Ketones Negative (Negative) 05/20/25:25 Urine Nitrite Positive (Negative) A 05/20/25 19:25 Ur Leukocyte Esterase 3+ (Negative) H 05/20/25 19:25 Urine WBC (Auto) >50 /hpf (0-5) H 05/20/25 19:25 Urine RBC (Auto) 6-10 /hpf (0-2) H 05/20/25 19:25 U Hyaline Cast (Auto) 3-5 /lpf (0-2) H 05/20/25 19:25 U Epithel Cells (Auto) 0-2 /hpf (0-2) 05/20/25 19:25 Urine Bacteria (Auto) 1+ (None Seen) H 05/20/25 19:25 05/20/25 18:56 Aerobic Blood Culture - Preliminary Blood Gram negative bacilli Anaerobic Blood Culture - Preliminary Gram negative bacilli 05/20/25 18:56 Aerobic Blood Culture - Preliminary Blood Gram negative bacilli Anaerobic Blood Culture - Preliminary Gram negative bacilli
[2025-05-21] MEDS ORDERED: LIDOCAINE 2% 2 ML VIAL/AMP(20MG/ML) INFIL ONE (09:18)
[2025-05-21] MEDS ORDERED: MIDAZOLAM HCL 1 MG/ML 2ML VIAL ONE (09:18)
[2025-05-21] MEDS ORDERED: PROPOFOL IV EMULSION 10 MG/ML 20 ML VIAL IV ONE (09:18)
[2025-05-21] MEDS ORDERED: ONDANSETRON INJ 2 MG/ML 2 ML VIAL ONE (09:41)
--- NOTE | 2025-05-21 09:57 | Operative Report ---
PG Post Operative Report Pre & Post Diagnosis Operation Date: 05/21/25 07:00 Pre-Op Diagnosis: Kidney stone on left side Post-Op Diagnosis: Kidney stone on left side I identified the patient and participated in the time-out.: Yes Procedure Operation Date: 05/21/25 07:00 Actual Procedures p Cystoscopy, Left Stent Placement(Left) - Hunter Grace MD Surgeon Hunter Grace MD Airset Molder none Estimated Blood Loss 0 Findings Consistent with Post-Op Diagnosis Specimens none Description of Procedure The patient was identified in the preoperative holding area, appropriate informed consents were reviewed and completed and the patient was transferred to the operative suite. Upon arrival, appropriate antibiotics and anesthesia were administered and the patient was placed in dorsal lithotomy position and prepped and draped in sterile fashion. To begin the case I passed a 21 Cypriot cystoscope with 30 degree lens per inspection revealed a healthy appearing urethra and a bladder that appears to have signs of infection. She had some erythematous patches scattered around her bladder but no tumors or other abnormalities concerning for malignancy. Ureteral orifices were identified and the left UO was cannulated with a sensor wire and a 5 Cypriot open-ended catheter. She still with some contrast within the upper tract so I was able to confirm position of the upper pole of the kidney. I then placed a 6 Cypriot by 24 cm double-J stent. There were good curls in the kidney and bladder. Her bladder was decompressed and she was reversed of anesthesia and taken to the recovery room in stable condition. I attest to the content of the Intraoperative Record and any orders documented therein. Any exceptions are noted below.
--- NOTE | 2025-05-21 10:05 | Anesthesiology Progress Note ---
Date of Service May 21, 2025 Anesthesia Post Procedure Vital Signs Vital Signs: Temp Pulse Pulse Pulse Resp BP BP 05/21/25 09:57 36.1 C L 89 14 05/21/25 09:06 38.3 C H 84 22 119/53 L 05/21/25 07:42 37.2 C 86 16 115/65 05/21/25 07:22 85 05/21/25 03:44 37.2 C 92 H 22 135/69 05/21/25 01:05 05/21/25 01:05 37.5 C 97 H 22 145/69 H 05/21/25 00:15 91 H 05/20/25 23:03 99 H 16 135/59 L 05/20/25 22:32 97 H 05/20/25 22:00 98 H 16 05/20/25 22:00 98 H 16 05/20/25 21:00 106 H 16 05/20/25 20:00 97 H 16 05/20/25 20:00 94 H 16 05/20/25 19:00 91 H 16 05/20/25 18:51 91 H 16 05/20/25 18:26 81 05/20/25 17:52 91 H 22 05/20/25 17:52 91 H 22 05/20/25 17:52 36.8 C 91 H 16 138/77 BP Pulse Ox O2 Del Method O2 Flow Rate 05/21/25 09:57 112/62 94 Oxymask 6 05/21/25 09:06 95 Nasal Cannula 2 05/21/25 07:42 95 Nasal Cannula 2 05/21/25 07:22 05/21/25 03:44 95 Nasal Cannula 1 05/21/25 01:05 Nasal Cannula 2 05/21/25 01:05 93 Nasal Cannula 2 05/21/25 00:15 05/20/25 23:03 92 Nasal Cannula 2 05/20/25 22:32 05/20/25 22:00 118/90 95 Nasal Cannula 2 05/20/25 22:00 118/90 95 Nasal Cannula 2 05/20/25 21:00 106/82 05/20/25 20:00 148/99 H 96 Nasal Cannula 2 05/20/25 20:00 148/99 H 96 Nasal Cannula 2 05/20/25 19:00 154/74 H 98 Nasal Cannula 2 05/20/25 18:51 150/108 H 98 Nasal Cannula 2 05/20/25 18:26 05/20/25 17:52 138/77 95 Nasal Cannula 2 05/20/25 17:52 95 Nasal Cannula 2 05/20/25 17:52 95 Nasal Cannula 2 Transfer of Care Handoff Completed per policy Notes Mental Status: alert / awake / arousable Patient Amnestic to Procedure: Yes Nausea / Vomiting: adequately controlled Pain: adequately controlled Airway Patency, RR, SpO2: stable & adequate BP & HR: stable & adequate Hydration State: stable & adequate Anesthetic Complications: no major complications apparent
--- NOTE | 2025-05-21 12:07 | Fluoroscopy Report ---
FL KUB CLINICAL HISTORY: LT SIDE STENT COMPARISON STUDY: No previous studies for comparison. FINDINGS: One fluoroscopic spot image was obtained. 2 seconds of fluoroscopic time was utilized. The single image demonstrates the proximal pigtail of a left-sided nephroureteral stent IMPRESSION: Fluoroscopic spot image demonstrating the proximal pigtail of a left-sided nephrouretera l stent ACT 112: Negative or not required by law. Electronically signed by: Jerry Magallon M.D. 05/21/2025 12:06 PM
--- NOTE | 2025-05-21 15:31 | Hospitalist Progress Note ---
Date of Service May 21, 2025 Assessment & Plan (1) Sepsis: Plan: Assessment and plan below following discussion of case with ED provider and reviewing patient history/pertinent normal/abnormal diagnostic test results. Severe sepsis SIRS plus ARF Secondary to complicated UTI secondary to obstructive uropathy, Bacteremia -- 1cm stone in the Left UPJ -- s/p L ureteral stent placement today -- Urine culture: E coli Blood culture: Gram negative bacilli repeat blood culture: pending -- continue Ceftriaxone IV ff up cultures -- baseline crea 1.1, now 1.58 repeat crea tomorrow hold Lisinopril gentle IV fluids hypertension -- BP on the lower side hold Lisinopril hyperlipidemia, on statin Rx Recent CVA prediabetes, hemoglobin A1c of 6 from January 2025 DVT prophylaxis with Heparin subcu Full code Admission and Anticipated Discharge Date Admission Date: May 20, 2025 Subjective seen resting in bed, comfortable states she feels ok overall very tired denies urinary symptoms no fever/chills no chest pain, dyspnea, palpitations, dizziness Review of Systems Review of Systems: all noted and negative except for above Physical Exam Physical Exam: General- oriented x 3, not in distress, speaks in sentences with no effort or accessory muscle use Eyes- anicteric Neck- no JVD Lungs- clear breath sounds bilaterally, no rales/wheezes Heart- normal rate, regular rhythm; no murmurs Abdomen- normal bowel sounds, nondistended, soft, nontender no CVA tenderness Extremities- no pretibial edema, no calf tenderness Neuro- alert, oriented x 3; no gross focal neurologic deficits Skin- warm & dry Results & Data Results & Data Vital Signs (Past 12 Hours) Vital Signs Temp Pulse Pulse Pulse Resp BP BP 05/21/25 12:05 37.0 C 96 H 20 108/64 05/21/25 10:32 36.9 C 78 16 116/54 L 05/21/25 10:15 36.7 C 84 22 118/73 05/21/25 10:05 87 20 127/87 05/21/25 09:57 36.1 C L 89 14 112/62 05/21/25 09:06 38.3 C H 84 22 119/53 L 05/21/25 08:20 05/21/25 07:42 37.2 C 86 16 115/65 05/21/25 07:22 85 05/21/25 03:44 37.2 C 92 H 22 135/69 Pulse Ox O2 Del Method O2 Flow Rate 05/21/25 12:05 95 Room Air 05/21/25 10:32 92 Room Air 05/21/25 10:15 94 Room Air 05/21/25 10:05 97 Oxymask 3 05/21/25 09:57 94 Oxymask 6 05/21/25 09:06 95 Nasal Cannula 2 05/21/25 08:20 Nasal Cannula 2 05/21/25 07:42 95 Nasal Cannula 2 05/21/25 07:22 05/21/25 03:44 95 Nasal Cannula 1 all noted and reviewed including below
[2025-05-21] MEDS ORDERED: Nursing to Pharmacy Communication SCH (16:00)
[2025-05-21] MEDS: ADVANCED PROBIOTIC 625 MG CAPSULE PO SCH (16:38)
[2025-05-21] MEDS: SODIUM CHLORIDE 0.9% 1,000 ML IV SCH (16:38)
[2025-05-21] MEDS: cefTRIAXone SODIUM 2,000 MG/50 ML BAG IV SCH (18:15)
--- NOTE | 2025-05-22 05:50 | Electrocardiogram Report ---
Test Reason : Blood Pressure : */* mmHG Vent. Rate : 88 BPM Atrial Rate : 88 BPM P-R Int : 122 ms QRS Dur : 84 ms QT Int : 334 ms P-R-T Axes : * -11 0 degrees QTcB Int : 404 ms Sinus rhythm with Premature supraventricular complexes Inferior infarct , age undetermined Abnormal ECG When compared with ECG of 23-Feb-2025 05:18, Nonspecific T wave abnormality, worse in Inferior leads Nonspecific T wave abnormality no longer evident in Anterolateral leads Confirmed by Pancho Braden ([id number]) on 05/22/2025 5:50:05 AM Referred By: Confirmed By: Pancho Braden
[2025-05-22 09:05] LABS: Hematocrit (blood only) 34.9 % (37.0-47.0); Hemoglobin 11.2 g/dl (12.0-16.0); Immature Granulocytes # (auto) 0.09 K/uL (0.01-0.20); Immature Granulocytes % (auto) 0.8 %; Mean Corpuscular Hemoglobin 28.4 pg (25.0-34.0); Mean Corpuscular Volume 88.4 fL (80.0-100.0); Platelet Count 170 K/uL (130-400); RDW Standard Deviation 47.2 fL (36.4-46.3); Red Blood Count 3.95 M/uL (4.20-5.40); White Blood Count 11.76 K/ul (4.8-10.8)
--- NOTE | 2025-05-22 09:06 | Urology Progress Note ---
Date of Service May 22, 2025 Assessment & Plan (1) Sepsis: (2) Kidney stone on left side: Plan: 79-year-old female admitted for sepsis, UTI/bacteremia and obstructing left proximal ureteral stone. - Pt POD#1 s/p cystoscopy, left ureteral stent placement - Afebrile overnight, hemodynamically stable - Lab work reviewed - creatinine pending, WBC 11.76, Hgb 11.2 - Blood cultures 05/20 prelim with E. coli - Repeat blood cultures pending - Urine culture 05/20 prelim with pin point growth, reincubating - Continue broad-spectrum antibiotics and narrow per sensitivity data when available - Tolerating left ureteral stent with minimal bother - Continue supportive care and antibiotics - Recommend discharge with appropriate PO antibiotics when medically stable, can provide Flomax for stent management - Expected clinical course reviewed, all questions answered - Will arrange outpatient follow-up with our service to set up definitive stone treatment - will sign off, please contact her service with any additional questions or concerns Admission and Anticipated Discharge Date Admission Date: May 20, 2025 Subjective Patient seen and examined at bedside this morning. She is awake and resting in bed. Reports feeling fatigued. Denies pain. No nausea, vomiting, fever or chills. Voiding spontaneously. Review of Systems Constitutional: as per Subjective / HPI Genitourinary: as per Subjective / HPI Physical Exam Constitutional: no acute distress Respiratory: normal respiratory effort; no respiratory distress and no labored breathing Gastrointestinal (Abdomen): Inspection/Auscultation: abdomen normal to inspection Musculoskeletal: Head/Neck/Chest: normocephalic Neurologic: moves all extremities and awake Psychiatric: Orientation: alert and oriented x 3 Results & Data Vital Signs (Past 12 Hours) Vital Signs Temp Pulse Pulse Resp BP BP Pulse Ox 05/22/25 07:38 05/22/25 07:30 37.6 C H 80 16 129/77 90 05/22/25 01:58 37.4 C 83 16 124/69 91 05/21/25 23:34 37 C 95 05/21/25 22:44 37.7 C H 79 16 115/66 92 05/21/25 22:15 72 O2 Del Method 05/22/25 07:38 Room Air 05/22/25 07:30 Room Air 05/22/25 01:58 Room Air 05/21/25 23:34 Room Air 05/21/25 22:44 Room Air 05/21/25 22:15 PG Care Time/CCT Total # of Minutes Spent Total Time Spent with Patient: Total time spent is greater than 50% in coordination of care (as documented) at patient's floor/unit and/or counseling patient: Coding Level of Care Code 25679 SUB INP/OBS CARE 08/25MIN Diagnoses Sepsis A41.9 Kidney stone on left side N20.0
[2025-05-22 09:22] LABS: Alanine Aminotransferase 9.0 U/L (7-52); Albumin Globulin Ratio 0.9 (0.9-2); Albumin Level 2.8 gm/dl (3.4-5.0); Alkaline Phosphatase 56.0 U/L (34-104); Anion Gap 7.0 (3-11); Bilirubin,Total 0.6 mg/dl (0.2-1.0); Blood Urea Nitrogen 24.0 mg/dl (6-23); Calcium 8.4 mg/dl (8.6-10.3); Carbon Dioxide 21.0 mmol/L (21-32); Chloride 108.0 mmol/L (98-107); Creatinine Clr Calc Pharmacy 36.1 ml/min; Globulin 3.2 gm/dl (2.5-4.0); Glucose 108.0 mg/dl (70-99(Fasting)); Potassium 4.1 mmol/L (3.5-5.1); Sodium 136.0 mmol/L (136-145); Total Protein 6.0 gm/dl (6.0-8.3)
--- NOTE | 2025-05-22 15:53 | Hospitalist Progress Note ---
Date of Service May 22, 2025 Assessment & Plan (1) Acute sepsis: (2) E coli bacteremia: (3) UTI (urinary tract infection), bacterial: (4) Left ureteral calculus: (5) Prediabetes: (6) Hypertension: Plan Patient with E. coli bacteremia due to UTI and obstructing left ureteral calculus status post surgical intervention Continue antibiotics Transition to oral antibiotics when sensitivities available Encourage activity Son at bedside and updated. Admission and Anticipated Discharge Date Admission Date: May 20, 2025 Subjective Patient states that she is feeling a little bit better each day but still does not quite feel her usual self but cannot be more specific. Son is at the bedside. He later reported to me that she was able to get up and go to the bathroom herself without significant problems. Physical Exam Physical Exam: Constitutional: Alert, nontoxic, sitting in chair HEENT: Mucous membranes moist. Lungs: Clear to auscultation, decreased, no wheezes rales or rhonchi CV: S1-S2, regular Abdomen: Soft, nontender, nondistended Extremities: No significant edema Neuro: No focal deficits Psych: Cooperative, normal mood Results & Data Results & Data Vital Signs (Past 12 Hours) Vital Signs Temp Pulse Pulse Resp BP Pulse Ox O2 Del Method 05/22/25 15:21 37.2 C 78 16 109/57 L 95 Room Air 05/22/25 12:55 83 05/22/25 11:31 36.9 C 53 L 16 126/75 95 Room Air 05/22/25 07:38 Room Air 05/22/25 07:30 37.6 C H 80 16 129/77 90 Room Air 05/22/25 05:37 75 Diagnostic Findings Reviewed imaging, laboratory and diagnostic studies. Pertinent findings as below. Cultures reviewed, E. coli, sensitivities pending WBCs 11.7, significantly improved Hemoglobin 11.2 stable Creatinine 1.47, improved
[2025-05-23 02:31] VITALS: TEMP 98.2
[2025-05-23 06:07] LABS: Hematocrit (blood only) 34.5 % (37.0-47.0); Hemoglobin 11.2 g/dl (12.0-16.0); Mean Corpuscular Hemoglobin 28.8 pg (25.0-34.0); Mean Corpuscular Volume 88.7 fL (80.0-100.0); Platelet Count 189 K/uL (130-400); RDW Standard Deviation 45.9 fL (36.4-46.3); Red Blood Count 3.89 M/uL (4.20-5.40); White Blood Count 8.96 K/ul (4.8-10.8)
[2025-05-23 06:27] LABS: Anion Gap 8.0 (3-11); Blood Urea Nitrogen 23.0 mg/dl (6-23); Calcium 8.5 mg/dl (8.6-10.3); Carbon Dioxide 22.0 mmol/L (21-32); Chloride 108.0 mmol/L (98-107); Creatinine Clr Calc Pharmacy 37.2 ml/min; Glucose 107.0 mg/dl (70-99(Fasting)); Potassium 3.9 mmol/L (3.5-5.1); Sodium 138.0 mmol/L (136-145)
[2025-05-23 07:59] VITALS: RESP 20; O2SAT 93
[2025-05-23] MEDS: CIPROFLOXACIN 250 MG TAB PO SCH (08:50)
--- NOTE | 2025-05-23 08:59 | Discharge Summary ---
Discharge Summary Date of Service May 23, 2025 Principal Dx & Hospital Course #1 = Principal Diagnosis (1) Acute sepsis: (2) E coli bacteremia: (3) UTI (urinary tract infection), bacterial: (4) Left ureteral calculus: (5) Prediabetes: (6) Hypertension: Patient is a 79-year-old female presented to the emergency room with increasing weakness. Also had some lower abdominal pain. In the emergency room diagnostic workup was significant for leukocytosis, CT of the abdomen revealing obstructed 1.1 cm stone in left renal pelvis with hydronephrosis and evidence of perinephric stranding. Patient was quite ill showing signs of sepsis and was admitted to the hospital. She was placed on broad-spectrum IV antibiotics. Urological consultation was obtained. Patient underwent urological intervention with cystoscopy and left ureteral stent placement. Patient's postoperative course was uneventful. With treatment of the infection and IV hydration her acute kidney injury improved. Blood culture is growing out E. coli that is pansensitive. Her WBCs normalized. Her strength started to return. Vital signs stabilized. Based on sensitivities she could be transition to oral antibiotics. Received her first dose of oral ciprofloxacin here in the hospital. She will continue to complete a 14-day course of antibiotics in total. She will be discharged home to follow-up with urology for definitive care of the ureteral calculus. Notes For Next Care Provider Follow-up with urology Medication Changes From Visit Ciprofloxacin Admission HPI Per Admitting Provider History obtained from patient and records. Medical history significant for hypertension, hyperlipidemia, CVA, prediabetes, GERD, glaucoma. Last confinement January 2025 for acute CVA presenting as aphasia. Patient discharged on Plavix and statin Rx. Patient not feeling well today. Increasingly weak. No headache, no chest pain, no SOB. Achy lower abdominal pain going to the back with nausea. No emesis. Denies hematuria. Patient fell over from weakness. Denies head trauma, LOC. IV cefepime administered at the ER. 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 Lungs: Clear to auscultation, decreased, no wheezes rales or rhonchi CV: S1-S2, regular Abdomen: Soft, nontender, nondistended Extremities: No significant edema Neuro: No focal deficits Psych: Cooperative, normal mood Updated Medication List Medication Instructions Recorded Confirmed Type atorvastatin 40 mg tablet 40 mg PO QAM #30 tabs 02/23/25 05/20/25 Rx clopidogrel 75 mg tablet 75 mg PO QAM #30 tabs 02/23/25 05/20/25 Rx famotidine 40 mg tablet (Pepcid) 40 mg PO QAM 05/20/25 05/20/25 History lisinopril 5 mg tablet 5 mg PO QAM 05/20/25 05/20/25 History L.acidop,casei,lactis,rham-B.lact,steve 1 cap PO DAILY #30 caps 05/23/25 Rx 625 mg (10 billion cell) capsule (Advanced Probiotic) ciprofloxacin HCl 750 mg tablet 750 mg PO BID 12 days #24 tabs 05/23/25 Rx Hospital Stay Data Consultations 05/20/25 20:15 ED Decision to Admit Stat 05/21/25 00:46 Consult Urology Routine Procedures Performed Operation Date: 05/21/25 07:00 Actual Procedures p Cystoscopy, Left Stent Placement(Left) - Hunter Grace MD Diagnostic Imagining Performed 05/20/25 17:44 CT abd pelvis IV con only Stat CT angio chest PE protocol Stat CT cervical spine wo con Stat CT head/brain wo con Stat 05/21/25 09:30 FL KUB Routine Reviewed imaging, laboratory and diagnostic studies. Pertinent findings as below. Head CT no acute findings, chronic small vessel disease Chest x-ray some mild congestion. CTA of the chest: Negative for PE, no consolidation CT of the abdomen pelvis showed obstructing 1.1 cm stone left renal pelvis. Nonobstructing right renal stones WBCs 8.9, significantly improved Hemoglobin Bandar 0.2, stable Electrolytes stable Creatinine 1.42, improved from admission Blood and urine cultures growing E. coli pansensitive including fluoroquinolones Pending Results Patient Have Any Pending Studies at Discharge: No Discharge Instructions Given to Patient (Per Discharging Provider) Complete course of antibiotics Follow-up with urology as coordinated Home Health Attestation I certify that this patient is under my care and that I, or a physicians collections assistant working with me, had a face to-face encounter that meets the home health [id number] encounter requirements with this patient. The encounter with the patient was in whole, or in part, for the following medical condition, which is the primary reason for home health care (list medical condition): I certify that, based on my findings, the following services are medically necessary home health services: My clinical findings support the need for the above services because: Further, I certify that my clinical findings support that this patient is ho mebound (i.e. absences from home require considerable and taxing effort and are for medical reasons or baptist services or infrequently or of short duration when for other reasons) because: Certification for Home Health Services: Based on the above findings, I certify that this patient is confined to the home and needs intermittent assisted care, physical therapy and/or speech therapy or continues to need occupational therapy. The patient is under my care, and I have initiated the establishment of the plan of care. This patient will be followed by a physician who will periodically review the plan of care. Total Time Total Time Spent Total Time Spent (In Minutes): 33
[2025-05-23 09:12] VITALS: BP 137/73
[2025-05-23 11:01] VITALS: PULSE 74
== END 2025-05-23 11:35 | disposition home or self-care (01) | DRG 854 ==
LOC: ED 17:34 → SUATTDRO 21:16 → 2N 21:16